=== PATIENT | male | born 1995 | race Caucasian/White ===

== ENCOUNTER 2020-03-20 22:26 | Emergency (ER) | payer OTHER, SELFPAY ==
--- NOTE | 2020-03-20 22:30 | XR_ITS ---
WS: [id number] Right hand, 3 views, 03/20/2020 Clinical Data: crush injury Comparison: None. Findings: No fractures or dislocations are seen. The soft tissues are unremarkable. The joint space s are normal XR/XR hand RT min 3V* [id number] Impression: Negative right hand.
[2020-03-20 22:40] VITALS: BP 139/83; PULSE 99; RESP 18; TEMP 36.8; O2SAT 97; BMI 20.1
--- NOTE | 2020-03-20 23:07 | W.ED.UPPEXIN ---
HPI - Extremity Injury (Upper) General: Chief Complaint: Extremity Injury, Upper Stated Complaint: Smashed hand Time Seen by Provider: 03/20/20 22:29 Source: patient Mode of arrival: ambulatory Limitations: no limitations History of Present Illness: HPI narrative: Patient is a 24-year-old male who presents to ED today for an evaluation of a right hand injury. Patient tells me earlier at work he got the hand caught between a door and cement wall. Patient states he tried to contact his employer but they did not answer so states at this time this is not a workers comp injury. Patient has no other complaints currently. complaint: injury to: hand Onset (ago): hour(s) Other injuries: none Place: work Severity: mild Relieving factors: immobilization Exacerbating factors: movement of extremity Context: crush Associated symptoms: Reports no associated symptoms Review of Systems Musc: Reports: extremity pain (R hand) and extremity swelling (R hand) Skin/Breast: Reports: other (no abrasions/lacerations) Neuro: Denies: numbness in extremities or sensory changes [facility] ED PFSH: Social History (Updated 07/19/19 @ 11:49 by Erendira Brown LPN) Smoking and tobacco status: former smoker Physical Exam Const: COMMON NORMALS: no acute distress, average body habitus, patient oriented x3, no limitations, healthy appearing, alert and well nourished Extremity: GENERAL: Yes normal exam except as noted OTHER: TTP R thenar eminence and proximal dorusm of hand; still maintains ROM of all digits and wrist; no abrasions/lacerations; no tenderness to scaphoid; NV intact Neuro: COMMON NORMALS: patient oriented x3, moves all extremities, no focal motor deficits and no sensory deficits noted SENSORIUM/ORIENTATION: Yes alert Skin: COMMON NORMALS: no rashes or lesions noted GENERAL SKIN EXAM: no rashes or lesions noted Course Vital Signs: Vital signs: Vital Signs Temperature 98.3 F 03/20/20 22:40 Pulse Rate 99 03/20/20 22:40 Respiratory Rate 18 03/20/20 22:40 Blood Pressure 139/83 03/20/20 22:40 Pulse Oximetry 97 03/20/20 22:40 MDM - Extremity Injury (Upper) Imaging Data^: XR R hand: My impression: NAD Discharge Plan Discharge Patient Disposition: Home Clinical Impression: Contusion of hand, right Qualifiers: Encounter type: initial encounter Qualified Code(s): S60.221A - Contusion of right hand, initial encounter Condition: Stable Prescriptions: No Action Toujeo Max U-300 SoloStar 300 unit/mL (3 mL) insulin pen 60 unit SUBCUT DAILY RF: 0 insulin aspart U-100 [Novolog Flexpen U-100 Insulin] 100 unit/mL (3 mL) insulin pen See Rx Instructions SUBCUT TID RF: 0 Discharge Orders: Discharge ED (Routine); Ordered 03/20/20 Ordered By: Vivi Lewis Referrals: Hector Ryan MD [Primary Care Provider] - Activity Restrictions/Additional Instructions: Please follow up with primary care in one week for continued or worsening pain. Coding Level of Care Code ED Campground Manager for Mehdi Nelson
[2020-03-20 23:22] VITALS: RESP 16
== END 2020-03-20 23:23 | disposition home or self-care (01) ==
PROVIDERS: Emergency Provider Physician Assistant; PCP Family Medicine
DX: S60.221A Contusion of right hand, initial encounter (principal); Z79.4 Long term (current) use of insulin; Z87.891 Personal history of nicotine dependence; W23.0XXA Caught, crushed, jammed, or pinched between moving objects, initial encounter; Y99.0 Civilian activity done for income or pay
CPT/HCPCS: 12345; 73130; 99281; 99282

== ENCOUNTER 2020-04-28 15:51 | Observation (INO) | payer OTHER, SELFPAY ==
[2020-04-28 16:07] VITALS: BP 128/71; PULSE 106; RESP 16; TEMP 36.9; O2SAT 100; BMI 20.5
--- NOTE | 2020-04-28 16:44 | XR_ITS ---
WS: [id number] XR chest 1V portable [id number] REASON FOR EXAM: reduced breath sounds FINDINGS: The chest is unchanged compared to 02/02/2017. The heart and mediastinum are within normal limits. Calcified granulomatous changes are present in both hemithoraces. No active pulmonary parenchymal or pleural disease is noted. Bony thorax is intact. XR/XR chest 1V portable [id number] IMPRESSION: No acute chest abnormality.
[2020-04-28 17:33] LABS: ABG PCO2 30.5 mmHg (35-45); Arterial Blood Gas Hematocrit 50.8 % (42-52); Base Excess ABG -15.6 mmol/L (-2.0-2.0); Blood Gas Allen Test Pos; Blood Gas Operator Identificat GD; Blood Gas Sample Site Radial, left; Blood Gas Sample Type Arterial; Carboxyhemoglobin 0.8 %THgb (0.4-20.1); HCO3 ABG 11.4 mmol/L (22-26); HGB O2 Sat 96.8 % (95-100); Methemoglobin 0.5 % (0.4-1.5); Oxygen Device ROOM AIR; Total Hemoglobin 16.6 g/dL (14-18)
[2020-04-28 17:34] LABS: ABG PH Result 7.18 (7.35-7.45)
[2020-04-28] MEDS: insulin regular-human 100 units/1 mL 10 UNIT IVP (17:43)
[2020-04-28] MEDS: sodium chloride 0.9% 1,000 ML 999 ML IV ×2 (17:43→19:20)
[2020-04-28 17:48] LABS: Glucose Point of Care 469 mg/dL (70-110)
[2020-04-28 17:57] LABS: Basophils # 0.1 10^3/uL (0.0-0.1); Basophils % 0.5 %; Eosinophils % 0.1 %; Hematocrit 48.4 % (42.0-52.0); Hemoglobin 16.5 g/dL (11.7-16.6); Lymphocytes # 2.5 10^3/uL (0.8-4.8); Mean Corpuscular HGB Conc 34.1 g/dL (30.0-36.0); Mean Corpuscular Hemoglobin 29.6 pg (28.0-34.0); Mean Corpuscular Volume 86.9 fL (80-94); Mean Platelet Volume 10.4 fL (7.4-10.4); Monocytes # 1.1 10^3/uL (0.2-0.9); Monocytes % 7.5 %; Neutrophils # 10.32 10^3/uL (1.8-7.7); Neutrophils % 73.1 %; Nucleated Red Blood Cells % 0 %; Platelet Count 298 10^3/cmm (130-400); Red Blood Count 5.57 10^6/uL (4.1-5.3); Red Cell Distribution Width 11.6 % (12.1-15.1); White Blood Count 14.1 10^3/uL (4.0-10.0)
[2020-04-28 18:07] LABS: Ketone (Acetest) Serum Negative (Negative)
[2020-04-28 18:16] LABS: Alanine Aminotransferase 22 U/L (0-41); Albumin Level 4.9 g/dL (3.5-5.2); Alkaline Phosphatase 124 IU/L (40-130); Anion Gap 26.4 (5-19); Aspartate Amino Transferase 12 U/L (0-40); Blood Urea Nitrogen 19 mg/dL (6-20); Calcium 8.8 mg/dL (8.5-10.5); Carbon Dioxide 13 mmol/L (22-29); Chloride 92 mmol/L (98-107); Globulin 3.4 g/dL (1.3-4.6); Glomerular Filtration Rate 90.3 mL/min (90-130); Glucose 474 mg/dL (65-115); Lipase 11 U/L (13-60); Osmolality Calculated 285 mOsm/kg (285-295); Potassium 5.4 mmol/L (3.5-5.1); Sodium 126 mmol/L (136-145); Total Bilirubin 0.4 mg/dL (0.15-1.2); Total Protein 8.3 g/dL (6.6-8.7)
[2020-04-28 18:53] VITALS: BP 117/73; PULSE 96; RESP 14; O2SAT 100
[2020-04-28 19:00] VITALS: BP 123/73; PULSE 89; RESP 26; O2SAT 99
[2020-04-28 19:01] LABS: Glucose Point of Care 316 mg/dL (70-110)
[2020-04-28 19:03] LABS: Lactate (Lactic Acid level) 1.2 mmol/L (0.5-2.2)
[2020-04-28] MEDS: insulin regular-human 100 units/1 mL 5 UNIT IVP (19:21)
--- NOTE | 2020-04-28 19:42 | P.HP_ITS ---
Providers/Chief Complaint Admitting Physician: Dr Esquivel Primary Care Provider: none reported Chief Complaint: DKA History of Present Illness Kojo Thomas is a 24 year old male who presented to the emergency room not feeling well. He had not taken his insulin for 3 days. He did take the last of his Toujeo today. Despite this his blood sugars remained elevated and he felt fairly certain that he was in DKA. He has a history of type 1 diabetes mellitus diagnosed back in 2010. For several years from approximately 5006-8029 he had recurrent episodes of DKA. The last episode was back in 2017. 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 Denied specific financial difficulty getting his insulin, instead just reported that he has been lazy and not getting it done. Denies any specific symptoms other than general malaise. In the emergency room ABG showed 7.18/103/11. Blood sugar was initially around 470. He received some insulin and IV fluids. Most recent blood sugar is at 316. Anion gap was 26. He had other laboratory abnormalities consistent with DKA. He is being placed in observation status currently. Review of Systems Const: Reports: malaise; Denies: fever(s) Eyes: Denies: change in vision ENMT: Denies: throat pain, mouth pain, ear or mastoid pain or nasal congestion Card: Denies: chest pain, palpitations or edema Resp: Denies: dyspnea, productive cough or non-productive cough GI: Denies: abdominal pain, nausea, vomiting, diarrhea or constipation : Denies: difficulty urinating Musc: Denies: extremity pain Skin/Breast: Denies: rash, pruritus or sores Neuro: Reports: other (no neurological complaints) Psych: Denies: anxiety or depression Medications/Allergies Home Medications Medication Instructions Recorded Confirmed Last Taken Type insulin glargine U-300 conc 300 70 unit SUBCUT DAILY 07/19/19 04/28/20 04/28/20 History unit/mL (3 mL) subcutaneous pen insulin lispro [Humalog KwikPen See Rx Instructions .ROUTE .COMPLEX 04/28/20 04/28/20 Unknown History Insulin] Allergies Allergy/AdvReac Type Severity Reaction Status Date / Time No Known Allergies Allergy Verified 07/19/19 11:34 PFSH Acute PFSH: Medical History (Updated 04/28/20 @ 20:32 by Kelly Esquivel MD) History of pericarditis (~2016) occurred after appendectomy Type I diabetes mellitus (~2010) 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 Mildly depressed EF at 50% with mild inferior wall hypokinesis. History of tonsillectomy Family History (Updated 04/28/20 @ 20:10 by Kelly Esquivel MD) Other Diabetes Social History (Updated 04/28/20 @ 20:11 by Kelly Esquivel MD) Smoking and tobacco status: current some day smoker cigarettes [ Other cigarette details: occasional use ] Alcohol intake: current Alcohol intake frequency: holidays/special occasions only Substance/Drug Use: never Current occupational status: employed Vitals/I&O/Wt Last Vital Signs Temp 98.4 F 04/28/20 16:07 Pulse 89 04/28/20 19:00 Resp 26 H 04/28/20 19:00 BP 123/73 04/28/20 19:00 Pulse Ox 99 04/28/20 19:00 04/28/20 04/28/20 04/28/20 06:59 14:59 22:59 Intake Total 1000 / 1000 Balance 1000 / 1000 Weight last 48 hrs Weight 72.575 kg Physical Exam Const: OTHER: Alert, oriented x3, cooperative HENMT: OTHER: Normocephalic atraumatic, moist mucus membranes, fair to poor dentition, no obvious abscess noted, nasopharynx is clear Eye: OTHER: Pupils equally round and reactive to light, extraocular movements intact Neck/C-Spine: OTHER: Supple, no thyromegaly or lymphadenopathy Resp: OTHER: Clear to auscultation bilaterally, no rales, rhonchi or wheezes noted, no accessory muscle use noted, mild tachypnea Cardio: OTHER: Regular rate and rhythm, no murmurs gallops or rubs. Pulses equal throughout GI: OTHER: Abdomen soft, nontender, nondistended with positive bowel sounds : OTHER: Deferred Extremity: NARRATIVE EXTREMITY EXAM: No cyanosis, clubbing or edema, no acute synovitis Neuro: OTHER: Face symmetric, speech clear, moves all extremities Psych: OTHER: Normal affect Skin: OTHER: Skin without any lesions or rashes noted, earlobes with evidence of prior small gauge or piercing Data : 04/28/20 17:43 04/28/20 17:43 Other Labs: Laboratory Results WBC 14.1 10^3/uL (4.0-10.0) H 04/28/20 17:43 RBC 5.57 10^6/uL (4.1-5.3) H 04/28/20 17:43 Hgb 16.5 g/dL (11.7-16.6) 04/28/20 17:43 Hct 48.4 % (42.0-52.0) 04/28/20 17:43 MCV 86.9 fL (80-94) 04/28/20 17:43 MCH 29.6 pg (28.0-34.0) 04/28/20 17:43 MCHC 34.1 g/dL (30.0-36.0) 04/28/20 17:43 RDW 11.6 % (12.1-15.1) L 04/28/20 17:43 Plt Count 298 10^3/cmm (130-400) 04/28/20 17:43 MPV 10.4 fL (7.4-10.4) 04/28/20 17:43 Neut % (Auto) 73.1 % 04/28/20 17:43 Lymph % (Auto) 18.0 % 04/28/20 17:43 [place] % (Auto) 7.5 % 04/28/20 17:43 Eos % (Auto) 0.1 % 04/28/20 17:43 Baso % (Auto) 0.5 % 04/28/20 17:43 Neut # (Auto) 10.32 10^3/uL (1.8-7.7) H 04/28/20 17:43 Lymph # (Auto) 2.5 10^3/uL (0.8-4.8) 04/28/20 17:43 [place] # (Auto) 1.1 10^3/uL (0.2-0.9) H 04/28/20 17:43 Eos # (Auto) 0.0 10^3/uL (0.0-0.8) 04/28/20 17:43 Baso # (Auto) 0.1 10^3/uL (0.0-0.1) 04/28/20 17:43 Nucleated RBC % (auto) 0 % 04/28/20 17:43 Nucleated RBCs # 0.0 /100WBC 04/28/20 17:43 Specimen Type Arterial 04/28/20 17:18 Sample Site Radial, left 04/28/20 17:18 ABG pH 7.18 (7.35-7.45) L* 04/28/20 17:18 ABG pCO2 30.5 mmHg (35-45) L 04/28/20 17:18 ABG pO2 103.0 mmHg (80.0-100.0) H 04/28/20 17:18 ABG HCO3 11.4 mmol/L (22-26) L 04/28/20 17:18 ABG Base Excess -15.6 mmol/L (-2.0-2.0) L 04/28/20 17:18 Gino Test Pos 04/28/20 17:18 Hematocrit 50.8 % (42-52) 04/28/20 17:18 Hgb O2 Saturation 96.8 % (95-100) 04/28/20 17:18 Carboxyhemoglobin 0.8 %THgb (0.4-20.1) 04/28/20 17:18 Methemoglobin 0.5 % (0.4-1.5) 04/28/20 17:18 Total Hemoglobin 16.6 g/dL (14-18) 04/28/20 17:18 O2 Delivery Device Room air 04/28/20 17:18 Patient Educator ID [id number] 04/28/20 17:18 Sodium 126 mmol/L (136-145) L 04/28/20 17:43 Potassium 5.4 mmol/L (3.5-5.1) H 04/28/20 17:43 Chloride 92 mmol/L (98-107) L 04/28/20 17:43 Carbon Dioxide 13 mmol/L (22-29) L 04/28/20 17:43 Anion Gap 26.4 (5-19) H 04/28/20 17:43 BUN 19 mg/dL (6-20) 04/28/20 17:43 Creatinine 1.0 mg/dL (0.7-1.2) 04/28/20 17:43 GFR Calculation 90.3 mL/min (90-130) 04/28/20 17:43 Glucose 474 mg/dL (65-115) H 04/28/20 17:43 POC Glucose 316 mg/dL (70-110) H 04/28/20 18:56 Calculated Osmolality 285 mOsm/kg (285-295) 04/28/20 17:43 Lactate 1.2 mmol/L (0.5-2.2) 04/28/20 17:43 Calcium 8.8 mg/dL (8.5-10.5) 04/28/20 17:43 Total Bilirubin 0.4 mg/dL (0.15-1.2) 04/28/20 17:43 AST 12 U/L (0-40) 04/28/20 17:43 ALT 22 U/L (0-41) 04/28/20 17:43 Alkaline Phosphatase 124 IU/L (40-130) 04/28/20 17:43 Total Protein 8.3 g/dL (6.6-8.7) 04/28/20 17:43 Albumin 4.9 g/dL (3.5-5.2) 04/28/20 17:43 Globulin 3.4 g/dL (1.3-4.6) 04/28/20 17:43 Lipase 11 U/L (13-60) L 04/28/20 17:43 Serum Ketones Negative (Negative) 04/28/20 17:43 CXR: I personally reviewed and interpreted this imaging study as follows: My impression: normal cardiac silhouette, no infiltrates, scattered granulomatous changes and peribronchial cuffing similar to prior study from 2017 A&P Assessment and plan (1) DKA (diabetic ketoacidoses): Due, apparently, to noncompliance with insulin regimen as reported by him. No other symptoms besides malaise presently. He has associated leukocytosis, pseudohyponatremia, hyperkalemia, and clinical evidence of dehydration. With the insulin that he has taken at home he has already had clearing of serum ketones. Lactate is normal, LFTs are normal, lipase is normal. I do not see evidence of other reasons to have anion gap acidosis currently. Status: Acute Qualifiers: Diabetes mellitus type: type 1 Diabetes mellitus complication detail: without coma Qualified Code(s): E10.10 - Type 1 diabetes mellitus with ketoacidosis without coma (2) Type I diabetes mellitus: Normally on Toujeo and sliding scale insulin Status: Chronic Qualifiers: Diabetes mellitus complication status: without complication Qualified Code(s): E10.9 - Type 1 diabetes mellitus without complications Additional A&P Information Observation admission Insulin therapy He normally takes his Toujeo around 11 AM at home. Currently plan on giving it to him in the morning earlier than this to get blood sugars under control. IV fluids Electrolyte replacement as indicated Check EKG Follow-up pending urine Monitor for any mental status or other changes suggestive of an alternative reason for anion gap metabolic acidosis Check A1c and lipid panel in morning given that he does not have a primary care provider to routinely follow with Recheck electrolytes in the morning and address accordingly Recheck CBC to ensure resolution of leukocytosis Recommended that he make arrangements to follow regularly with a primary care provider. I did let him know that if he utilizes one at our facility where he could have access to [address] pricing for his insulin at the [facility] pharmacy. He currently fills prescriptions at [facility] and denies financial difficulties. Supportive care otherwise Plans discussed with patient and he was given an opportunity to ask questions Full code Anticipate discharge home when blood sugar stabilized Attestations Medical Necessity Statement*: Currently anticipated stay less than 2 midnights in a gentleman with known type 1 diabetes mellitus presenting with evidence of DKA. He admitted noncompliance with his insulin therapy for 3 days. Sugars have improved quickly and with insulin he administered at home has already had clearing of serum ketones. Coding Level of Care Code Acute Manager Of Selection And Assessment for Mehdi Nelson Diagnoses DKA (diabetic ketoacidoses) E10.10 Diabetes mellitus type: type 1 Diabetes mellitus complication detail: without coma Type I diabetes mellitus E10.9 Diabetes mellitus complication status: without complication
[2020-04-28 19:45] VITALS: BP 122/70; PULSE 84; RESP 13; O2SAT 100
[2020-04-28] MEDS: insulin glargine 100 units/1 mL 10 UNIT SUBCUT (20:30)
[2020-04-28 20:34] LABS: Glucose Point of Care 276 mg/dL (70-110)
[2020-04-28 20:42] VITALS: BP 111/71; PULSE 86; RESP 13; TEMP 36.9; O2SAT 100
--- NOTE | 2020-04-28 20:54 | ED_ITS ---
HPI - General Adult General: Chief complaint: General Medical Stated complaint: PT STATES DKA Time Seen by Provider: 04/28/20 16:47 History of Present Illness: HPI narrative: The patient is a 24-year-old male diabetic who comes for likely DKA. His sugar was over 200 and he took no short acting insulin today. says she can smell his breath and it smells sweet. He is a noncompliant diabetic and noted ketones in his urine today at home. He admits increased thirst and urination. Associated symptoms: Deny chest pain, confusion, dyspnea, headache(s), rash or palpitations Review of Systems General: Reports: 10 or more systems reviewed and unremarkable except in HPI and below Const: Denies: fatigue Eyes: Denies: change in vision, blurry vision or eye redness ENMT: Denies: throat pain, swelling of lips/tongue, ear or mastoid pain or nasal congestion Card: Denies: chest pain, palpitations, irregular heart rhythm, edema, dyspnea on exertion or orthopnea Resp: Denies: dyspnea, productive cough or non-productive cough GI: Denies: abdominal pain, diarrhea or GI cramping : Denies: flank pain, urinary frequency or urinary urgency Musc: Denies: neck pain, back pain, extremity pain, joint pain, joint redness, limited range of motion or muscle weakness Skin/Breast: Denies: rash, pruritus, erythema, skin pain or skin tenderness Neuro: Denies: headache(s), numbness in extremities, weakness in extremities, sensory changes, difficulty walking, dizziness, confusion or Slurred speech present Psych: Denies: anxiety or depression Endo: Denies: polyuria All/Imm: Denies: urticaria, throat swelling or tongue swelling PFSH ED PFSH: Medical History (Updated 04/28/20 @ 20:56 by Jf Pelaez MD) History of pericarditis (~2016) occurred after appendectomy Type I diabetes mellitus (~2010) 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 Mildly depressed EF at 50% with mild inferior wall hypokinesis. History of tonsillectomy Family History (Updated 04/28/20 @ 20:10 by Kelly Esquivel MD) Other Diabetes Social History (Updated 04/28/20 @ 20:11 by Kelly Esquivel MD) Smoking and tobacco status: current some day smoker cigarettes [ Other cigarette details: occasional use ] Alcohol intake: current Alcohol intake frequency: holidays/special occasions only Substance/Drug Use: never Current occupational status: employed Physical Exam Const: COMMON NORMALS: no acute distress, average body habitus, patient oriented x3, no limitations, healthy appearing, alert and well nourished GENERAL APPEARANCE: cooperative, comfortable, well kempt and well developed ORIENTATION/CONSCIOUSNESS: Yes awake, Yes oriented to person, Yes oriented to place and Yes oriented to time HENMT: COMMON NORMALS: normocephalic, external ears normal and Normal external nose present HEAD & SCALP: normal to inspection and normocephalic NOSE: Normal external nose present EXTERNAL EAR: Yes external ears normal MOUTH: Normal oral and palatal mucosa present THROAT: posterior oropharynx normal Eye: COMMON NORMALS: Equal, round and reactive pupils present and EOMs intact bilaterally GENERAL EYE: appearance normal, both eyes and all related structures PUPIL: Yes Equal, round and reactive pupils present Neck/C-Spine: COMMON NORMALS: full ROM, no lymphadenopathy, no meningeal signs and no JVD GENERAL: Yes normal visual inspection Lymph: LYMPHATIC: no lymphadenopathy noted Chest: COMMONS NORMALS: normal inspection of the chest and normal palpation of entire chest wall Resp: COMMON NORMALS: normal respiratory effort, No retractions, No use of accessory muscles, clear to auscultation bilaterally and percussion normal EFFORT & INSPECTION: Yes able to speak in complete sentences AUSCULTATION: clear to auscultation bilaterally PERCUSSION: percussion normal Cardio: COMMON NORMALS: no JVD, regular rate, regular rhythm, S1 normal heart sound present, S2 normal heart sound present and Peripheral pulses 2+ throughout RATE: regular rate RHYTHM: regular rhythm HEART SOUNDS: S1 normal heart sound present and S2 normal heart sound present PERIPHERAL PULSES: Peripheral pulses 2+ throughout GI: COMMON NORMALS: Normal to inspection, nondistended, normoactive bowel sounds present, Soft to palpation, non-tender and no masses INSPECTION: Yes normal to inspection PALPATION: Yes Soft to palpation : COMMON NORMALS: Yes no CVA tenderness BLADDER/KIDNEY EXAM: Yes no CVA tenderness Back/Pelvis: COMMON NORMALS: no CVA tenderness, thoracic and lumbar spine normal to inspection, no thoracic nor lumbar tenderness and thoraco-lumbar ROM normal Extremity: COMMON NORMALS: normal to inspection, full ROM, capillary refill normal, no joint enlargement and no pedal edema GENERAL: Yes normal exam except as noted Neuro: COMMON NORMALS: patient oriented x3, CN's II-XII intact bilaterally, moves all extremities, no focal motor deficits, no sensory deficits noted and gait normal SENSORIUM/ORIENTATION: Yes alert, Yes oriented to person, Yes oriented to place and Yes oriented to time MENINGEAL SIGNS: Yes no meningeal signs Psych: COMMON NORMALS: mental status grossly normal, Normal thought process present, cooperative, normal affect and speech normal APPEARANCE: Yes well kempt ATTITUDE: Yes calm SPEECH: Yes normal speech THOUGHT PROCESS: Normal thought process present Skin: COMMON NORMALS: no rashes or lesions noted GENERAL SKIN EXAM: no rashes or lesions noted Course Vital Signs: Vital signs: Vital Signs Temperature 98.4 F 04/28/20 20:42 Pulse Rate 86 04/28/20 20:42 Respiratory Rate 13 04/28/20 20:42 Blood Pressure 111/71 04/28/20 20:42 Pulse Oximetry 100 04/28/20 20:42 MDM - General Adult MDM Narrative: Medical decision making narrative: Patient's pH was 7.18 and serum ketones were negative though he did have ketones in his urine at home. Likely DKA. Increased anion gap. He was given IV insulin and fluids and admitted. Dr. Esquivel accepts him to the floor. His glucose got down to 300 prior to his admission. Lab Data: Labs: Lab Results 04/28/20 04/28/20 04/28/20 Range/Units 17:18 17:29 17:43 WBC 14.1 H (4.0-10.0) 10^3/ uL RBC 5.57 H (4.1-5.3) 10^6/u L Hgb 16.5 (11.7-16.6) g/dL Hct 48.4 (42.0-52.0) % MCV 86.9 (80-94) fL MCH 29.6 (28.0-34.0) pg MCHC 34.1 (30.0-36.0) g/dL RDW 11.6 L (12.1-15.1) % Plt Count 298 (130-400) 10^3/c mm MPV 10.4 (7.4-10.4) fL Neut % (Auto) 73.1 % Lymph % (Auto) 18.0 % [place] % (Auto) 7.5 % Eos % (Auto) 0.1 % Baso % (Auto) 0.5 % Neut # (Auto) 10.32 H (1.8-7.7) 10^3/u L Lymph # (Auto) 2.5 (0.8-4.8) 10^3/u L [place] # (Auto) 1.1 H (0.2-0.9) 10^3/u L Eos # (Auto) 0.0 (0.0-0.8) 10^3/u L Baso # (Auto) 0.1 (0.0-0.1) 10^3/u L Nucleated RBC % (a uto) 0 % Nucleated RBCs # 0.0 /100WBC Specimen Type Arterial Sample Site Radial, left ABG pH 7.18 L* (7.35-7.45) ABG pCO2 30.5 L (35-45) mmHg ABG pO2 103.0 H (80.0-100.0) mmH g ABG HCO3 11.4 L (22-26) mmol/L ABG Base Excess -15.6 L (-2.0-2.0) mmol/ L Gino Test Pos Hematocrit 50.8 (42-52) % Hgb O2 Saturation 96.8 (95-100) % Carboxyhemoglobin 0.8 (0.4-20.1) %THgb Methemoglobin 0.5 (0.4-1.5) % Total Hemoglobin 16.6 (14-18) g/dL O2 Delivery Device Room air Certified Ophthalmic Surgical Assistant ID Gd Sodium (136-145) mmol/L Potassium (3.5-5.1) mmol/L Chloride (98-107) mmol/L Carbon Dioxide (22-29) mmol/L Anion Gap (5-19) BUN (6-20) mg/dL Creatinine (0.7-1.2) mg/dL GFR Calculation (90-130) mL/min Glucose (65-115) mg/dL POC Glucose 469 H (70-110) mg/dL Calculated Osmolal ity (285-295) mOsm/k g Lactate (0.5-2.2) mmol/L Calcium (8.5-10.5) mg/dL Total Bilirubin (0.15-1.2) mg/dL AST (0-40) U/L ALT (0-41) U/L Alkaline Phosphata se (40-130) IU/L Total Protein (6.6-8.7) g/dL Albumin (3.5-5.2) g/dL Globulin (1.3-4.6) g/dL Lipase (13-60) U/L Serum Ketones (Negative) 04/28/20 04/28/20 04/28/20 Range/Units 17:43 17:43 17:43 WBC (4.0-10.0) 10^3/ uL RBC (4.1-5.3) 10^6/u L Hgb (11.7-16.6) g/dL Hct (42.0-52.0) % MCV (80-94) fL MCH (28.0-34.0) pg MCHC (30.0-36.0) g/dL RDW (12.1-15.1) % Plt Count (130-400) 10^3/c mm MPV (7.4-10.4) fL Neut % (Auto) % Lymph % (Auto) % [place] % (Auto) % Eos % (Auto) % Baso % (Auto) % Neut # (Auto) (1.8-7.7) 10^3/u L Lymph # (Auto) (0.8-4.8) 10^3/u L [place] # (Auto) (0.2-0.9) 10^3/u L Eos # (Auto) (0.0-0.8) 10^3/u L Baso # (Auto) (0.0-0.1) 10^3/u L Nucleated RBC % (a uto) % Nucleated RBCs # /100WBC Specimen Type Sample Site ABG pH (7.35-7.45) ABG pCO2 (35-45) mmHg ABG pO2 (80.0-100.0) mmH g ABG HCO3 (22-26) mmol/L ABG Base Excess (-2.0-2.0) mmol/ L Gino Test Hematocrit (42-52) % Hgb O2 Saturation (95-100) % Carboxyhemoglobin (0.4-20.1) %THgb Methemoglobin (0.4-1.5) % Total Hemoglobin (14-18) g/dL O2 Delivery Device Certified Ophthalmic Surgical Assistant ID Sodium 126 L (136-145) mmol/L Potassium 5.4 H (3.5-5.1) mmol/L Chloride 92 L (98-107) mmol/L Carbon Dioxide 13 L (22-29) mmol/L Anion Gap 26.4 H (5-19) BUN 19 (6-20) mg/dL Creatinine 1.0 (0.7-1.2) mg/dL GFR Calculation 90.3 (90-130) mL/min Glucose 474 H (65-115) mg/dL POC Glucose (70-110) mg/dL Calculated Osmolal ity 285 (285-295) mOsm/k g Lactate 1.2 (0.5-2.2) mmol/L Calcium 8.8 (8.5-10.5) mg/dL Total Bilirubin 0.4 (0.15-1.2) mg/dL AST 12 (0-40) U/L ALT 22 (0-41) U/L Alkaline Phosphata se 124 (40-130) IU/L Total Protein 8.3 (6.6-8.7) g/dL Albumin 4.9 (3.5-5.2) g/dL Globulin 3.4 (1.3-4.6) g/dL Lipase 11 L (13-60) U/L Serum Ketones Negative (Negative) 04/28/20 Range/Units 18:56 WBC (4.0-10.0) 10^3/ uL RBC (4.1-5.3) 10^6/u L Hgb (11.7-16.6) g/dL Hct (42.0-52.0) % MCV (80-94) fL MCH (28.0-34.0) pg MCHC (30.0-36.0) g/dL RDW (12.1-15.1) % Plt Count (130-400) 10^3/c mm MPV (7.4-10.4) fL Neut % (Auto) % Lymph % (Auto) % [place] % (Auto) % Eos % (Auto) % Baso % (Auto) % Neut # (Auto) (1.8-7.7) 10^3/u L Lymph # (Auto) (0.8-4.8) 10^3/u L [place] # (Auto) (0.2-0.9) 10^3/u L Eos # (Auto) (0.0-0.8) 10^3/u L Baso # (Auto) (0.0-0.1) 10^3/u L Nucleated RBC % (a uto) % Nucleated RBCs # /100WBC Specimen Type Sample Site ABG pH (7.35-7.45) ABG pCO2 (35-45) mmHg ABG pO2 (80.0-100.0) mmH g ABG HCO3 (22-26) mmol/L ABG Base Excess (-2.0-2.0) mmol/ L Gino Test Hematocrit (42-52) % Hgb O2 Saturation (95-100) % Carboxyhemoglobin (0.4-20.1) %THgb Methemoglobin (0.4-1.5) % Total Hemoglobin (14-18) g/dL O2 Delivery Device Certified Ophthalmic Surgical Assistant ID Sodium (136-145) mmol/L Potassium (3.5-5.1) mmol/L Chloride (98-107) mmol/L Carbon Dioxide (22-29) mmol/L Anion Gap (5-19) BUN (6-20) mg/dL Creatinine (0.7-1.2) mg/dL GFR Calculation (90-130) mL/min Glucose (65-115) mg/dL POC Glucose 316 H (70-110) mg/dL Calculated Osmolal ity (285-295) mOsm/k g Lactate (0.5-2.2) mmol/L Calcium (8.5-10.5) mg/dL Total Bilirubin (0.15-1.2) mg/dL AST (0-40) U/L ALT (0-41) U/L Alkaline Phosphata se (40-130) IU/L Total Protein (6.6-8.7) g/dL Albumin (3.5-5.2) g/dL Globulin (1.3-4.6) g/dL Lipase (13-60) U/L Serum Ketones (Negative) Discharge Plan Discharge Patient Disposition: Admitted As Inpatient Admit Provider: Kelly Esquivel Clinical Impression: DKA (diabetic ketoacidoses) Condition: Stable Coding Level of Care Code ED Hydro Pneumatic Tester for Mehdi Nelson
[2020-04-28 21:12] LABS: Anion Gap 17.5 (5-19); Blood Urea Nitrogen 15 mg/dL (6-20); Calcium 7.7 mg/dL (8.5-10.5); Carbon Dioxide 15 mmol/L (22-29); Chloride 102 mmol/L (98-107); Glomerular Filtration Rate 116.9 mL/min (90-130); Glucose 311 mg/dL (65-115); Magnesium 1.9 mg/dL (1.7-2.3); Osmolality Calculated 283 mOsm/kg (285-295); Phosphorus 2.8 mg/dL (2.5-4.5); Potassium 4.5 mmol/L (3.5-5.1); Sodium 130 mmol/L (136-145)
--- NOTE | 2020-04-28 21:12 | ECG_ITS ---
[facility] ED Test Date: 2020-04-28 Pat Name: Kojo Thomas Department: Room: 277 Gender: Male Damascener: : 1995 Requested By: Kelly Esquivel Order Number: [id number] Shane MD: Rena Hill M.D. Measurements Intervals Lawn Rate: 82 P: 72 MS: 156 QRS: 83 QRSD: 94 T: 47 QT: 359 QTc: 419 Interpretive Statements SINUS RHYTHM Compared to ECG 02/02/2017 21:51:26 Sinus tachycardia no longer present T-wave abnormality no longer present Electronically Signed On 04-30-2020 7:55:39 CDT by Rena Hill M.D. [id number]
[2020-04-28 21:15] VITALS: BP 121/72; PULSE 83; RESP 18; TEMP 36.6; O2SAT 100
[2020-04-28 21:16] LABS: Glucose Point of Care 339 mg/dL (70-110)
[2020-04-28 21:23] LABS: Add Urine Microscopic? NO
[2020-04-28 21:28] LABS: Bilirubin Urine Neg (Negative); Blood Urine Neg (Negative); Glucose Urine UA 4+ (Normal); Ketones Urine 3+ (Negative); Leukocyte Esterase Urine Negative (Negative); Nitrate Urine Negative (Negative); Protein Urine Neg (Negative); Sulfosalicylic Acid Urine Negative (Negative); Urine Appearance Clear (CLEAR); Urine Color Yellow (Yellow); Urobilinogen Urine Norm (Negative); pH Urine 5 (5-7)
[2020-04-28] MEDS: enoxaparin 40 mg/0.4 mL Syringe SUBCUT (22:48)
[2020-04-28] MEDS: sodium chloride 0.9% 1,000 ML 150 ML IV (22:49)
[2020-04-29 00:36] VITALS: BP 113/61; PULSE 87; RESP 18; TEMP 36.8; O2SAT 96
[2020-04-29 04:14] LABS: Glucose Point of Care 140 mg/dL (70-110)
--- NOTE | 2020-04-29 04:14 | PC.NURSE ---
Dr. Esquivel asked this nurse to notify her if potassium level is below 4 with morning labs.
[2020-04-29 04:38] VITALS: BP 111/57; PULSE 79; RESP 18; TEMP 36.6; O2SAT 97
[2020-04-29 05:30] LABS: Basophils # 0.1 10^3/uL (0.0-0.1); Basophils % 0.7 %; Eosinophils # 0.3 10^3/uL (0.0-0.8); Hematocrit 39.7 % (42.0-52.0); Hemoglobin 13.8 g/dL (11.7-16.6); Lymphocytes # 2.9 10^3/uL (0.8-4.8); Lymphocytes % 35.6 %; Mean Corpuscular HGB Conc 34.8 g/dL (30.0-36.0); Mean Corpuscular Hemoglobin 29.6 pg (28.0-34.0); Mean Platelet Volume 9.8 fL (7.4-10.4); Monocytes # 0.8 10^3/uL (0.2-0.9); Monocytes % 9.2 %; Neutrophils % 50.9 %; Nucleated Red Blood Cells % 0 %; Platelet Count 237 10^3/cmm (130-400); Red Blood Count 4.67 10^6/uL (4.1-5.3); White Blood Count 8.3 10^3/uL (4.0-10.0)
[2020-04-29] MEDS: sodium chloride 0.9% 1,000 ML 150 ML IV (05:50)
[2020-04-29 06:12] LABS: Anion Gap 14.2 (5-19); Blood Urea Nitrogen 13 mg/dL (6-20); Calcium 8.4 mg/dL (8.5-10.5); Carbon Dioxide 20 mmol/L (22-29); Chloride 107 mmol/L (98-107); Creatinine Clr Calc Pharmacy 177.2202; Estmated Average Glucose 272; Glomerular Filtration Rate 136.3 mL/min (90-130); Glucose 123 mg/dL (65-115); Hemoglobin A1C 11.1 % (4.0-6.0); Magnesium 1.6 mg/dL (1.7-2.3); Osmolality Calculated 285 mOsm/kg (285-295); Phosphorus 2.4 mg/dL (2.5-4.5); Potassium 4.2 mmol/L (3.5-5.1); Sodium 137 mmol/L (136-145)
[2020-04-29 06:14] LABS: Cholesterol 117 mg/dL (0-200); HDL Cholesterol 45 mg/dL (60-100); LDL Cholesterol Calculated 52 mg/dL (50-129); LDL HDL Ratio 1.16 RATIO (0.00-3.22); Triglycerides 101 mg/dL (0-150)
[2020-04-29 06:21] LABS: Glucose Point of Care 95 mg/dL (70-110)
[2020-04-29 07:21] VITALS: BP 96/59; PULSE 73; RESP 18; TEMP 36.6; O2SAT 97
[2020-04-29] MEDS: insulin glargine 100 units/1 mL 60 UNIT SUBCUT (08:34)
--- NOTE | 2020-04-29 09:54 | PC.CHAP ---
Pastoral Care Encounter/Spiritual Assessment Type of Contact [] Declined urologic surgeon visit [] Patient/Family/Request visit [] Outpatient visit [] Follow-up visit [] Physician referral [] Code/Alert [x] Routine visit [] Staff referral [] Actively dying [] Patient sleeping [] Family support [] [] Out of room [] Palliative care [] [] Receiving care in room [] Pre-surgical visit [] Trauma [] Long length of stay [] ICU visit [] Other: Relational/Emotional Strength [] Patient feels connected with others/family/visitors/staff [] Distress [] Loneliness/isolation [] Abandonment Spirituality of Patient [] Person of Mayda [] Attends Yazidi of their Mayda [] Believes in Prayer [] Reads Bible or Confucianist materials [] There are Spiritual issues to be addressed Rigging Up Worker Interventions [] Prayer [] Active listening [] Non-anxious presence [] Spiritual/emotional support [] Crisis/trauma care [] Spiritual counseling [] Bereavement support [] Provided bereavement packet [] Provided Bible/devotional materials [] Provided toy/stuffed animal, coloring book to patient or family member [] Provided Communion [] Anointing/[place] [] Salvation [] Completed spiritual assessment [] Other: Impact on Illness or Injury [] Angry [] Fearful [] Anxious [] Often cries [] Exhaustion [] Unable to work [] Unable to attend orthodox [] Unable to walk/stand [] Unable to read [] Unable to drive [] Unable to eat/drink [] Unable to sleep [] Unable to be with family [] Patient intubated [] Other: Summary no payer Time spent with patient
--- NOTE | 2020-04-29 10:10 | PM.DCS ---
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 He had not taken his insulin for 3 days. He did take the last of his Toujeo today. Despite this his blood sugars remained elevated and he felt fairly certain that he was in DKA. He has a history of type 1 diabetes mellitus diagnosed back in 2010. For several years from approximately [id number] he had recurrent episodes of DKA. The last episode was back in 2016. 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 Denied specific financial difficulty getting his insulin, instead just reported that he has been lazy and not getting it done. Denies any specific symptoms other than general malaise. In the emergency room ABG showed 7.18//103/11. Blood sugar was initially around 470. He received some insulin and IV fluids. Most recent blood sugar is at 316. Anion gap was 26 Overnight DKA improved with IV insulin, he was transitioned to consistent carb diet and scheduled subcutaneous insulin dosages. Etiology of DKA was noncompliance with his insulin. Patient is denying chest pain fever abdominal pain alcohol intake on daily basis. On day of discharge white count 8.3 hemoglobin 13, anion gap 14 glucose 123, magnesium 1.6 potassium 4.2 Physical Exam Narrative: EXAM NARRATIVE: Young male was laying comfortably in his bed No active complaints No chest pain, S1, S2 No abdominal tenderness, soft no signs of peritonitis No acute respite distress no neurological deficits Pleasant mood and affect EOMI, PERRLA Discharge Data Data Completed and Pending: Completed Studies During Hospitalization Category Date Time Status XR chest 1V kevin ble [id number] Urgent Exams 04/28/20 16:44 Completed Labs from last 24 hours 04/29/20 04/29/20 04/29/20 06:09 05:01 05:01 WBC RBC Hgb Hct MCV MCH MCHC RDW Plt Count MPV Neut % (Auto) Lymph % (Auto) [place] % (Auto) Eos % (Auto) Baso % (Auto) Neut # (Auto) Lymph # (Auto) [place] # (Auto) Eos # (Auto) Baso # (Auto) Nucleated RBC % (a uto) Nucleated RBCs # Specimen Type Sample Site ABG pH ABG pCO2 ABG pO2 ABG HCO3 ABG Base Excess Gino Test Hematocrit Hgb O2 Saturation Carboxyhemoglobin Methemoglobin Total Hemoglobin O2 Delivery Device Aircraft Rigging [employer] Mechanic ID Sodium Potassium Chloride Carbon Dioxide Anion Gap BUN Creatinine GFR Calculation Glucose POC Glucose 95 Estimat Average Gl ucose 272 Hemoglobin A1c 11.1 H Calculated Osmolal ity Lactate Calcium Phosphorus Magnesium Total Bilirubin AST ALT Alkaline Phosphata se Total Protein Albumin Globulin Triglycerides 101 Cholesterol 117 LDL Cholesterol, C alc 52 HDL Cholesterol 45 L LDL/HDL Ratio 1.16 Cholesterol/HDL Ra shalom 2.60 Lipase Urine Color Urine Appearance Urine pH Ur Specific Gravit y Urine Protein Urine Glucose (UA) Urine Ketones Urine Blood Urine Nitrate Urine Bilirubin Prot Sulfosalicyli c Acd Urine Urobilinogen Ur Leukocyte Asha ase Serum Ketones 04/29/20 04/29/20 04/29/20 05:01 05:01 04:09 WBC 8.3 RBC 4.67 Hgb 13.8 Hct 39.7 L MCV 85.0 MCH 29.6 MCHC 34.8 RDW 12.0 L Plt Count 237 MPV 9.8 Neut % (Auto) 50.9 Lymph % (Auto) 35.6 [place] % (Auto) 9.2 Eos % (Auto) 3.0 Baso % (Auto) 0.7 Neut # (Auto) 4.20 Lymph # (Auto) 2.9 [place] # (Auto) 0.8 Eos # (Auto) 0.3 Baso # (Auto) 0.1 Nucleated RBC % (a uto) 0 Nucleated RBCs # 0.0 Specimen Type Sample Site ABG pH ABG pCO2 ABG pO2 ABG HCO3 ABG Base Excess Gino Test Hematocrit Hgb O2 Saturation Carboxyhemoglobin Methemoglobin Total Hemoglobin O2 Delivery Device Aircraft Rigging [employer] Controls Mechanic ID Sodium 137 Potassium 4.2 Chloride 107 Carbon Dioxide 20 L Anion Gap 14.2 BUN 13 Creatinine 0.7 GFR Calculation 136.3 H Glucose 123 H POC Glucose 140 H Estimat Average Gl ucose Hemoglobin A1c Calculated Osmolal ity 285 Lactate Calcium 8.4 L Phosphorus 2.4 L Magnesium 1.6 L Total Bilirubin AST ALT Alkaline Phosphata se Total Protein Albumin Globulin Triglycerides Cholesterol LDL Cholesterol, C alc HDL Cholesterol LDL/HDL Ratio Cholesterol/HDL Ra shalom Lipase Urine Color Urine Appearance Urine pH Ur Specific Gravit y Urine Protein Urine Glucose (UA) Urine Ketones Urine Blood Urine Nitrate Urine Bilirubin Prot Sulfosalicyli c Acd Urine Urobilinogen Ur Leukocyte Asha ase Serum Ketones 04/28/20 04/28/20 04/28/20 21:17 21:11 20:43 WBC RBC Hgb Hct MCV MCH MCHC RDW Plt Count MPV Neut % (Auto) Lymph % (Auto) [place] % (Auto) Eos % (Auto) Baso % (Auto) Neut # (Auto) Lymph # (Auto) [place] # (Auto) Eos # (Auto) Baso # (Auto) Nucleated RBC % (a uto) Nucleated RBCs # Specimen Type Sample Site ABG pH ABG pCO2 ABG pO2 ABG HCO3 ABG Base Excess Gino Test Hematocrit Hgb O2 Saturation Carboxyhemoglobin Methemoglobin Total Hemoglobin O2 Delivery Device Aircraft Rig[employer] Mechanic ID Sodium 130 L Potassium 4.5 Chloride 102 Carbon Dioxide 15 L Anion Gap 17.5 BUN 15 Creatinine 0.8 GFR Calculation 116.9 Glucose 311 H POC Glucose 339 H Estimat Average Gl ucose Hemoglobin A1c Calculated Osmolal ity 283 L Lactate Calcium 7.7 L Phosphorus 2.8 Magnesium 1.9 Total Bilirubin AST ALT Alkaline Phosphata se Total Protein Albumin Globulin Triglycerides Cholesterol LDL Cholesterol, C alc HDL Cholesterol LDL/HDL Ratio Cholesterol/HDL Ra shalom Lipase Urine Color Yellow Urine Appearance Clear Urine pH 5 Ur Specific Gravit y 1.020 Urine Protein Neg Urine Glucose (UA) 4+ H Urine Ketones 3+ H Urine Blood Neg Urine Nitrate Negative Urine Bilirubin Neg Prot Sulfosalicyli c Acd Negative Urine Urobilinogen Norm Ur Leukocyte Asha ase Negative Serum Ketones 04/28/20 04/28/20 04/28/20 20:28 18:56 17:43 WBC RBC Hgb Hct MCV MCH MCHC RDW Plt Count MPV Neut % (Auto) Lymph % (Auto) [place] % (Auto) Eos % (Auto) Baso % (Auto) Neut # (Auto) Lymph # (Auto) [place] # (Auto) Eos # (Auto) Baso # (Auto) Nucleated RBC % (a uto) Nucleated RBCs # Specimen Type Sample Site ABG pH ABG pCO2 ABG pO2 ABG HCO3 ABG Base Excess Gino Test Hematocrit Hgb O2 Saturation Carboxyhemoglobin Methemoglobin Total Hemoglobin O2 Delivery Device Aircraft [employer] Mechanic ID Sodium Potassium Chloride Carbon Dioxide Anion Gap BUN Creatinine GFR Calculation Glucose POC Glucose 276 H 316 H Estimat Average Gl ucose Hemoglobin A1c Calculated Osmolal ity Lactate 1.2 Calcium Phosphorus Magnesium Total Bilirubin AST ALT Alkaline Phosphata se Total Protein Albumin Globulin Triglycerides Cholesterol LDL Cholesterol, C alc HDL Cholesterol LDL/HDL Ratio Cholesterol/HDL Ra shalom Lipase Urine Color Urine Appearance Urine pH Ur Specific Gravit y Urine Protein Urine Glucose (UA) Urine Ketones Urine Blood Urine Nitrate Urine Bilirubin Prot Sulfosalicyli c Acd Urine Urobilinogen Ur Leukocyte Asha ase Serum Ketones 04/28/20 04/28/20 04/28/20 17:43 17:43 17:43 WBC 14.1 H RBC 5.57 H Hgb 16.5 Hct 48.4 MCV 86.9 MCH 29.6 MCHC 34.1 RDW 11.6 L Plt Count 298 MPV 10.4 Neut % (Auto) 73.1 Lymph % (Auto) 18.0 [place] % (Auto) 7.5 Eos % (Auto) 0.1 Baso % (Auto) 0.5 Neut # (Auto) 10.32 H Lymph # (Auto) 2.5 [place] # (Auto) 1.1 H Eos # (Auto) 0.0 Baso # (Auto) 0.1 Nucleated RBC % (a uto) 0 Nucleated RBCs # 0.0 Specimen Type Sample Site ABG pH ABG pCO2 ABG pO2 ABG HCO3 ABG Base Excess Gino Test Hematocrit Hgb O2 Saturation Carboxyhemoglobin Methemoglobin Total Hemoglobin O2 Delivery Device Aircraft Rig[employer] Mechanic ID Sodium 126 L Potassium 5.4 H Chloride 92 L Carbon Dioxide 13 L Anion Gap 26.4 H BUN 19 Creatinine 1.0 GFR Calculation 90.3 Glucose 474 H POC Glucose Estimat Average Gl ucose Hemoglobin A1c Calculated Osmolal ity 285 Lactate Calcium 8.8 Phosphorus Magnesium Total Bilirubin 0.4 AST 12 ALT 22 Alkaline Phosphata se 124 Total Protein 8.3 Albumin 4.9 Globulin 3.4 Triglycerides Cholesterol LDL Cholesterol, C alc HDL Cholesterol LDL/HDL Ratio Cholesterol/HDL Ra shalom Lipase 11 L Urine Color Urine Appearance Urine pH Ur Specific Gravit y Urine Protein Urine Glucose (UA) Urine Ketones Urine Blood Urine Nitrate Urine Bilirubin Prot Sulfosalicyli c Acd Urine Urobilinogen Ur Leukocyte Asha ase Serum Ketones Negative 04/28/20 04/28/20 17:29 17:18 WBC RBC Hgb Hct MCV MCH MCHC RDW Plt Count MPV Neut % (Auto) Lymph % (Auto) [place] % (Auto) Eos % (Auto) Baso % (Auto) Neut # (Auto) Lymph # (Auto) [place] # (Auto) Eos # (Auto) Baso # (Auto) Nucleated RBC % (a uto) Nucleated RBCs # Specimen Type Arterial Sample Site Radial, left ABG pH 7.18 L* ABG pCO2 30.5 L ABG pO2 103.0 H ABG HCO3 11.4 L ABG Base Excess -15.6 L Gino Test Pos Hematocrit 50.8 Hgb O2 Saturation 96.8 Carboxyhemoglobin 0.8 Methemoglobin 0.5 Total Hemoglobin 16.6 O2 Delivery Device Room air Aircraft [employer] Mechanic ID Gd Sodium Potassium Chloride Carbon Dioxide Anion Gap BUN Creatinine GFR Calculation Glucose POC Glucose 469 H Estimat Average Gl ucose Hemoglobin A1c Calculated Osmolal ity Lactate Calcium Phosphorus Magnesium Total Bilirubin AST ALT Alkaline Phosphata se Total Protein Albumin Globulin Triglycerides Cholesterol LDL Cholesterol, C alc HDL Cholesterol LDL/HDL Ratio Cholesterol/HDL Ra shalom Lipase Urine Color Urine Appearance Urine pH Ur Specific Gravit y Urine Protein Urine Glucose (UA) Urine Ketones Urine Blood Urine Nitrate Urine Bilirubin Prot Sulfosalicyli c Acd Urine Urobilinogen Ur Leukocyte Asha ase Serum Ketones Vitals: Last Vital Signs Temp 97.8 F 04/29/20 07:21 Pulse 73 04/29/20 07:21 Resp 18 04/29/20 07:21 BP 96/59 04/29/20 07:21 Pulse Ox 97 04/29/20 07:21 Discharge Plan Discharge Patient Disposition: Home Condition: Stable Prescriptions: New Phosphorous 250 mg tablet 1 tab PO DAILY Qty: 4 RF: 0 magnesium 250 mg tablet 125 mg PO BID 2 Days Qty: 2 RF: 0 Continued Toujeo Max U-300 SoloStar 300 unit/mL (3 mL) insulin pen 70 unit SUBCUT DAILY RF: 0 insulin lispro [Humalog KwikPen Insulin] 100 unit/mL insulin pen See Rx Instructions .ROUTE .COMPLEX RF: 0 Discharge Orders: Discharge Order (Routine); Ordered 04/29/20 Ordered By: Wilberto Oliver Discharge Diet: Diabetic Discharge Activity: Increase activity as tolerated Activity Restrictions/Additional Instructions: Please take magnesium and phosphate tablets for next 2 days, they were mildly low Follow-up with 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
--- NOTE | 2020-04-29 10:41 | PC.NURSE ---
DISCHARGE INSTRUCTIONS DISCHARGE INSTRUCTIONS GIVEN TO PT - PT VERBALIZES UNDERSTANDING
[2020-04-29 10:42] VITALS: BP 96/59; PULSE 73; RESP 18; TEMP 36.6; O2SAT 97
[2020-04-29 10:57] LABS: Glucose Point of Care 213 mg/dL (70-110)
== END 2020-04-29 12:48 | disposition home or self-care (01) ==
LOC: ER 17:23 → MEDSURG 20:16
PROVIDERS: Nurse Practitioner Family; Admitting Provider Hospitalist; Emergency Provider Family Medicine; Visit Provider Internal Medicine
DX: E10.9 Type 1 diabetes mellitus without complications (principal); E10.10 Type 1 diabetes mellitus with ketoacidosis without coma; F17.210 Nicotine dependence, cigarettes, uncomplicated
CPT/HCPCS: 36415; 36416; 36600; 71045; 80048; 80053; 80061; 81003; 82009; 82805; 82962; 83036; 83605; 83690; 83735; 84100; 85025; 93005; 96361; 96372; 96374; 96376; 99285; G0378; J1650; J1815 ×2; J7030

== ENCOUNTER 2020-12-31 11:47 | Inpatient (IN) | payer OTHER, SELFPAY ==
[2020-12-31] VITALS (12 sets, daily range): BP systolic 101–117; BP diastolic 60–73; PULSE 71–99; RESP 14–18; TEMP 36.7; O2SAT 95–100; BMI 19.9
--- NOTE | 2020-12-31 12:36 | XR_ITS ---
WS: [id number] Exam: XR chest 1V portable [id number] Date/Time of Exam: 12/31/2020 12:39 PM Reason For Exam: dyspnea/cough Comparison 04/28/2020. Findings: The lungs are clear and fully expanded. Costophrenic angles are sharp. No infiltrates. Bronchovascula r relief appears normal. Cardiac silhouette is unremarkable. Bony elements are intact. XR/XR chest 1V portable [id number] IMPRESSION: Unremarkable chest radiograph.
[2020-12-31 13:01] LABS: Basophils # 0.1 10^3/uL (0.0-0.1); Basophils % 0.5 %; Eosinophils % 0.1 %; Hematocrit 44.4 % (42.0-52.0); Hemoglobin 15.9 g/dL (11.7-16.6); Lymphocytes # 1.5 10^3/uL (0.8-4.8); Lymphocytes % 13.4 %; Mean Corpuscular HGB Conc 35.8 g/dL (30.0-36.0); Mean Corpuscular Hemoglobin 30.2 pg (28.0-34.0); Mean Corpuscular Volume 84.3 fl (80-94); Mean Platelet Volume 9.7 fL (7.4-10.4); Monocytes # 0.6 10^3/uL (0.2-0.9); Monocytes % 5.7 %; Neutrophils # 9.02 10^3/uL (1.8-7.7); Neutrophils % 79.8 %; Nucleated Red Blood Cells % 0 %; Platelet Count 313 10^3/cmm (130-400); Red Blood Count 5.27 10^6/uL (4.1-5.3); Red Cell Distribution Width 11.9 % (12.1-15.1); White Blood Count 11.3 10^3/uL (4.0-10.0)
--- NOTE | 2020-12-31 13:02 | W.ED.RECABL ---
HPI - Recheck/Abnormal Lab/Rx General: Chief Complaint: Recheck/Abnormal Lab/Rx Stated Complaint: DKA Time Seen by Provider: 12/31/20 12:35 History of Present Illness: HPI narrative: 25-year-old male presents emergency room with complaint of DKA. He is not doing his insulin last several days blood sugars and renal 300 and plus range. He has noted ketones in his urine on dipstick. 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 Mildly depressed EF at 50% with mild inferior wall hypokinesis. History of tonsillectomy Family History (Updated 04/28/20 @ 20:10 by Kelly Esquivel MD) Other Diabetes Social History (Updated 04/28/20 @ 20:11 by Kelly Esquivel MD) Smoking and tobacco status: current some day smoker cigarettes [ Other cigarette details: occasional use ] Alcohol intake: current Alcohol intake frequency: holidays/special occasions only Current occupational status: employed Course Vital Signs: Vital signs: Vital Signs Temperature 98.1 F 12/31/20 11:52 Pulse Rate 92 12/31/20 12:59 Respiratory Rate 16 12/31/20 12:59 Blood Pressure 110/73 12/31/20 12:59 Pulse Oximetry 97 12/31/20 12:59 MDM - Recheck/Abnormal Lab/Rx Lab Data: Labs: Lab Results 12/31/20 12/31/20 12/31/20 11:56 12:50 12:50 WBC 11.3 10^3/uL H 10 ^3/uL (4.0-10.0) RBC 5.27 10^6/uL 10^6 /uL (4.1-5.3) Hgb 15.9 g/dL g/dL (11.7-16.6) Hct 44.4 % % (42.0-52.0) MCV 84.3 fl fl (80-94) MCH 30.2 pg pg (28.0-34.0) MCHC 35.8 g/dL g/dL (30.0-36.0) RDW 11.9 % L % (12.1-15.1) Plt Count 313 10^3/cmm 10^3 /cmm (130-400) MPV 9.7 fL fL (7.4-10.4) Neut % (Auto) 79.8 % % Lymph % (Auto) 13.4 % % [place] % (Auto) 5.7 % % Eos % (Auto) 0.1 % % Baso % (Auto) 0.5 % % Neut # (Auto) 9.02 10^3/uL H 10 ^3/uL (1.8-7.7) Lymph # (Auto) 1.5 10^3/uL 10^3/ uL (0.8-4.8) [place] # (Auto) 0.6 10^3/uL 10^3/ uL (0.2-0.9) Eos # (Auto) 0.0 10^3/uL 10^3/ uL (0.0-0.8) Baso # (Auto) 0.1 10^3/uL 10^3/ uL (0.0-0.1) Nucleated RBC % (a uto) 0 % % Nucleated RBCs # 0.0 /100WBC /100W BC Specimen Type Sample Site ABG pH ABG pCO2 ABG pO2 ABG HCO3 ABG O2 Saturation ABG Base Excess Gino Test A-a O2 Gradient Hematocrit Hgb O2 Saturation Carboxyhemoglobin Methemoglobin Total Hemoglobin Sodium Glucose Ionized Calcium O2 Delivery Device FiO2 Eating Disorder Psychologist ID Potassium 4.5 mmol/L mmol/L (3.5-5.1) BUN 13 mg/dL mg/dL (6-20) Creatinine 0.9 mg/dL mg/dL (0.7-1.2) GFR Calculation 101.2 mL/min mL/m in (90-130) POC Glucose 330 mg/dL H mg/dL (70-110) Calcium 8.6 mg/dL mg/dL (8.5-10.5) Total Bilirubin 0.4 mg/dL mg/dL (0.15-1.2) AST 9 U/L U/L (0-40) ALT 15 U/L U/L (0-41) Alkaline Phosphata se 88 IU/L IU/L (40-130) Total Protein 7.3 g/dL g/dL (6.6-8.7) Albumin 4.5 g/dL g/dL (3.5-5.2) Globulin 2.8 g/dL g/dL (1.3-4.6) Serum Ketones 12/31/20 12/31/20 12/31/20 12:50 13:03 13:04 WBC RBC Hgb Hct MCV MCH MCHC RDW Plt Count MPV Neut % (Auto) Lymph % (Auto) [place] % (Auto) Eos % (Auto) Baso % (Auto) Neut # (Auto) Lymph # (Auto) [place] # (Auto) Eos # (Auto) Baso # (Auto) Nucleated RBC % (a uto) Nucleated RBCs # Specimen Type Arterial Sample Site Radial, right ABG pH 7.25 L (7.35-7.45) ABG pCO2 31.6 mmHg L mmHg (35-45) ABG pO2 98.2 mmHg mmHg (80.0-100.0) ABG HCO3 13.7 mmol/L L mmo l/L (22-26) ABG O2 Saturation 97.9 ABG Base Excess -12.3 mmol/L L mm ol/L (-2.0-2.0) Gino Test Pos A-a O2 Gradient 1.3 mmHg L mmHg (5-10) Hematocrit 49.2 % % (42-52) Hgb O2 Saturation 96.2 % % (95-100) Carboxyhemoglobin 0.7 %THgb %THgb (0.4-20.1) Methemoglobin 1.0 % % (0.4-1.5) Total Hemoglobin 16.0 g/dL g/dL (14-18) Sodium 128.0 mmol/L L mm ol/L (131-143) Glucose 307.0 mg/dL H mg/ dL (70-115) Ionized Calcium 1.3 mmol/L mmol/L (1.1-1.4) O2 Delivery Device Room air FiO2 21.0 % % Eating Disorder Psychologist ID Amh Potassium 4.4 mmol/L mmol/L (3.5-5.0) BUN Creatinine GFR Calculation POC Glucose 278 mg/dL H mg/dL (70-110) Calcium Total Bilirubin AST ALT Alkaline Phosphata se Total Protein Albumin Globulin Serum Ketones Negative (Negative) Discharge Plan Discharge Prescriptions: No Action Tylenol Ex Str Rapid Release 500 mg Tablet 500 - 1,000 mg PO Q4H PRN (Reason: Pain) RF: 0 ibuprofen 200 mg Tablet 800 mg PO Q4H PRN (Reason: Pain) RF: 0 Humalog KwikPen Insulin 100 unit/mL insulin pen See Rx Instructions .ROUTE .COMPLEX RF: 0 Toujeo Max U-300 SoloStar 300 unit/mL (3 mL) insulin pen 70 unit SUBCUT DAILY@12 RF: 0 Coding Level of Care Code ED [facility] Operator for Mehdi Nelson
[2020-12-31 13:10] LABS: Glucose Point of Care 278 mg/dL (70-110)
[2020-12-31 13:14] LABS: ABG PCO2 31.6 mmHg (35-45); ABG PH Result 7.25 (7.35-7.45); Alveolar-Arterial Oxygen Gradi 1.3 mmHg (5-10); Arterial Blood Gas Hematocrit 49.2 % (42-52); Base Excess ABG -12.3 mmol/L (-2.0-2.0); Blood Gas Allen Test Pos; Blood Gas Operator Identificat AMH; Blood Gas Sample Site Radial, right; Blood Gas Sample Type Arterial; Carboxyhemoglobin 0.7 %THgb (0.4-20.1); HCO3 ABG 13.7 mmol/L (22-26); HGB O2 Sat 96.2 % (95-100); Ionized Calcium Level - ABG 1.3 mmol/L (1.1-1.4); Oxygen Device ROOM AIR; Oxygen Saturation ABG 97.9; PO2 ABG 98.2 mmHg (80.0-100.0); Potassium Level - ABG 4.4 mmol/L (3.5-5.0)
[2020-12-31 13:21] LABS: Glucose Point of Care 330 mg/dL (70-110)
[2020-12-31 13:28] LABS: Alanine Aminotransferase 15 U/L (0-41); Albumin Level 4.5 g/dL (3.5-5.2); Alkaline Phosphatase 88 IU/L (40-130); Anion Gap 26.5 (5-19); Aspartate Amino Transferase 9 U/L (0-40); Blood Urea Nitrogen 13 mg/dL (6-20); Calcium 8.6 mg/dL (8.5-10.5); Carbon Dioxide 14 mmol/L (22-29); Chloride 90 mmol/L (98-107); Globulin 2.8 g/dL (1.3-4.6); Glomerular Filtration Rate 101.2 mL/min (90-130); Glucose 302 mg/dL (65-115); Osmolality Calculated 273 mOsm/kg (285-295); Potassium 4.5 mmol/L (3.5-5.1); Sodium 126 mmol/L (136-145); Total Bilirubin 0.4 mg/dL (0.15-1.2); Total Protein 7.3 g/dL (6.6-8.7)
[2020-12-31 13:36] LABS: Ketone (Acetest) Serum Negative (Negative)
[2020-12-31 13:38] LABS: Add Urine Microscopic? NO; Charge for UA Resulting for Rev
--- NOTE | 2020-12-31 13:53 | W.ED.GENADLT ---
HPI - General Adult General: Chief complaint: Recheck/Abnormal Lab/Rx Stated complaint: DKA Time Seen by Provider: 12/31/20 12:35 History of Present Illness: HPI narrative: 25-year-old male presents to the emergency room with complaints of elevated blood sugar. He admits has not been using his insulin last several days and his blood sugar has been elevated. he can taste the ketones in his mouth. He is not had any vomiting or diarrhea. He has been feeling rather weak and rundown. Severity: mild Relieving factors: none Exacerbating factors: none Associated symptoms: Deny chest pain, confusion, cough, diaphoresis, decreased appetite, dyspnea, fevers/chills, headache(s), malaise, nausea, rash, palpitations, seizures, short of breath, syncope, vomiting or weakness Treatments prior to arrival: none Review of Systems Const: Denies: malaise or diaphoresis ENMT: Denies: throat pain, ear or mastoid pain, nasal discharge or nasal congestion Card: Denies: chest pain, palpitations or syncope Resp: Denies: dyspnea GI: Denies: nausea or vomiting : Denies: flank pain, dysuria, urinary frequency or urinary urgency Skin/Breast: Denies: rash Neuro: Denies: headache(s) or confusion [facility] ED PFSH: Medical History (Updated 01/05/21 @ 10:44 by Tima Freitas DO) History of pericarditis (~2016) occurred after appendectomy Type I diabetes mellitus (~2010) 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, history of recurrent DKA ~[id number] Surgical History History of appendectomy (~10/2016) History of cardiac catheterization (~12/2016) Had ST elevation with chest pain, felt to have pericarditis as cause, normal left main, LAD, LCx, RCA. Mildly depressed EF at 50% with mild inferior wall hypokinesis. History of tonsillectomy Family History Other Diabetes Social History Smoking and tobacco status: current some day smoker cigarettes [ Other cigarette details: occasional use ] Alcohol intake: current Alcohol intake frequency: holidays/special occasions only Current occupational status: employed Physical Exam Const: COMMON NORMALS: no acute distress GENERAL APPEARANCE: cooperative and comfortable ORIENTATION/CONSCIOUSNESS: Yes awake, Yes oriented to person, Yes oriented to place and Yes oriented to time HENMT: COMMON NORMALS: normocephalic, atraumatic, hearing grossly normal bilaterally, moist oral mucous membranes and oropharynx normal HEAD & SCALP: normocephalic and atraumatic Eye: COMMON NORMALS: Equal, round and reactive pupils present, EOMs intact bilaterally, conjunctivae normal and no scleral icterus CONJUNCTIVA: Yes conjunctivae normal PUPIL: Yes Equal, round and reactive pupils present Neck/C-Spine: COMMON NORMALS: full ROM, no lymphadenopathy, supple and no JVD Lymph: LYMPHATIC: no lymphadenopathy noted and no lymphedema noted Resp: COMMON NORMALS: normal respiratory effort, No retractions, No use of accessory muscles and clear to auscultation bilaterally AUSCULTATION: clear to auscultation bilaterally Cardio: COMMON NORMALS: no JVD, regular rate, regular rhythm and No murmurs present (Cardio) RATE: regular rate RHYTHM: regular rhythm GI: COMMON NORMALS: Soft to palpation and No hepatosplenomegaly present AUSCULTATION: Yes normoactive bowel sounds PALPATION: Yes Soft to palpation, No Tenderness to palpation present (GI), No Guarding due to palpation present (GI) and Yes No hepatosplenomegaly present Extremity: COMMON NORMALS: normal to inspection, capillary refill normal, no clubbing, cyanosis or edema, no calf tenderness and no pedal edema Neuro: SENSORIUM/ORIENTATION: Yes oriented to person, Yes oriented to place and Yes oriented to time Skin: COMMON NORMALS: no rashes or lesions noted GENERAL SKIN EXAM: no rashes or lesions noted Course Vital Signs: Vital signs: Vital Signs Temperature 97.9 F 01/01/21 12:14 Pulse Rate 76 01/01/21 12:14 Respiratory Rate 16 01/01/21 12:14 Blood Pressure 102/67 01/01/21 12:14 Pulse Oximetry 99 01/01/21 12:14 MDM - General Adult MDM Narrative: Medical decision making narrative: Early DKA. We will go ahead and admit the patient discussed with hospitalist orders have been written. Lab Data: Labs: Lab Results 12/31/20 12/31/20 12/31/20 11:50 11:50 11:56 WBC RBC Hgb Hct MCV MCH MCHC RDW Plt Count MPV Neut % (Auto) Lymph % (Auto) Fisher % (Auto) Eos % (Auto) Baso % (Auto) Neut # (Auto) Lymph # (Auto) Fisher # (Auto) Eos # (Auto) Baso # (Auto) Nucleated RBC % (a uto) Nucleated RBCs # Specimen Type Sample Site ABG pH ABG pCO2 ABG pO2 ABG HCO3 ABG O2 Saturation ABG Base Excess Gino Test A-a O2 Gradient Hematocrit Hgb O2 Saturation Carboxyhemoglobin Methemoglobin Total Hemoglobin Ionized Calcium O2 Delivery Device FiO2 Fast Food Server ID Sodium Cancelled Potassium Cancelled Chloride Cancelled Carbon Dioxide Cancelled Anion Gap Cancelled BUN Cancelled Creatinine Cancelled GFR Calculation Cancelled Glucose Cancelled POC Glucose 330 mg/dL H mg/dL (70-110) Estimat Average Gl ucose 269 Hemoglobin A1c 11.0 % H % (4.0-6.0) Calculated Osmolal ity Cancelled Calcium Cancelled Iron 28 ug/dL L ug/dL (59-158) TIBC 268 mcg/dl mcg/dl % Saturation 10.4 % L % (20-50) Unsat Iron Binding 240 ug/dL ug/dL (112-347) Total Bilirubin AST ALT Alkaline Phosphata se Total Protein Albumin Globulin Procalcitonin 0.07 ng/mL ng/mL (0-0.5) TSH 0.40 uIU/mL uIU/m L (0.27-4.20) Urine Color Urine Appearance Urine pH Ur Specific Gravit y Urine Protein Urine Glucose (UA) Urine Ketones Urine Blood Urine Nitrate Urine Bilirubin Urine Urobilinogen Ur Leukocyte Asha ase Serum Ketones 12/31/20 12/31/20 12/31/20 12:50 12:50 12:50 WBC 11.3 10^3/uL H 10 ^3/uL (4.0-10.0) RBC 5.27 10^6/uL 10^6 /uL (4.1-5.3) Hgb 15.9 g/dL g/dL (11.7-16.6) Hct 44.4 % % (42.0-52.0) MCV 84.3 fl fl (80-94) MCH 30.2 pg pg (28.0-34.0) MCHC 35.8 g/dL g/dL (30.0-36.0) RDW 11.9 % L % (12.1-15.1) Plt Count 313 10^3/cmm 10^3 /cmm (130-400) MPV 9.7 fL fL (7.4-10.4) Neut % (Auto) 79.8 % % Lymph % (Auto) 13.4 % % Fisher % (Auto) 5.7 % % Eos % (Auto) 0.1 % % Baso % (Auto) 0.5 % % Neut # (Auto) 9.02 10^3/uL H 10 ^3/uL (1.8-7.7) Lymph # (Auto) 1.5 10^3/uL 10^3/ uL (0.8-4.8) Fisher # (Auto) 0.6 10^3/uL 10^3/ uL (0.2-0.9) Eos # (Auto) 0.0 10^3/uL 10^3/ uL (0.0-0.8) Baso # (Auto) 0.1 10^3/uL 10^3/ uL (0.0-0.1) Nucleated RBC % (a uto) 0 % % Nucleated RBCs # 0.0 /100WBC /100W BC Specimen Type Sample Site ABG pH ABG pCO2 ABG pO2 ABG HCO3 ABG O2 Saturation ABG Base Excess Gino Test A-a O2 Gradient Hematocrit Hgb O2 Saturation Carboxyhemoglobin Methemoglobin Total Hemoglobin Ionized Calcium O2 Delivery Device FiO2 Fast Food Server ID Sodium 126 mmol/L L mmol /L (136-145) Potassium 4.5 mmol/L mmol/L (3.5-5.1) Chloride 90 mmol/L L mmol/ L (98-107) Carbon Dioxide 14 mmol/L L mmol/ L (22-29) Anion Gap 26.5 H (5-19) BUN 13 mg/dL mg/dL (6-20) Creatinine 0.9 mg/dL mg/dL (0.7-1.2) GFR Calculation 101.2 mL/min mL/m in (90-130) Glucose 302 mg/dL H mg/dL (65-115) POC Glucose Estimat Average Gl ucose Hemoglobin A1c Calculated Osmolal ity 273 mOsm/kg L mOs m/kg (285-295) Calcium 8.6 mg/dL mg/dL (8.5-10.5) Iron TIBC % Saturation Unsat Iron Binding Total Bilirubin 0.4 mg/dL mg/dL (0.15-1.2) AST 9 U/L U/L (0-40) ALT 15 U/L U/L (0-41) Alkaline Phosphata se 88 IU/L IU/L (40-130) Total Protein 7.3 g/dL g/dL (6.6-8.7) Albumin 4.5 g/dL g/dL (3.5-5.2) Globulin 2.8 g/dL g/dL (1.3-4.6) Procalcitonin TSH Urine Color Urine Appearance Urine pH Ur Specific Gravit y Urine Protein Urine Glucose (UA) Urine Ketones Urine Blood Urine Nitrate Urine Bilirubin Urine Urobilinogen Ur Leukocyte Asha ase Serum Ketones Negative (Negative) 12/31/20 12/31/20 12/31/20 13:03 13:04 13:20 WBC RBC Hgb Hct MCV MCH MCHC RDW Plt Count MPV Neut % (Auto) Lymph % (Auto) Fisher % (Auto) Eos % (Auto) Baso % (Auto) Neut # (Auto) Lymph # (Auto) Fisher # (Auto) Eos # (Auto) Baso # (Auto) Nucleated RBC % (a uto) Nucleated RBCs # Specimen Type Arterial Sample Site Radial, right ABG pH 7.25 L (7.35-7.45) ABG pCO2 31.6 mmHg L mmHg (35-45) ABG pO2 98.2 mmHg mmHg (80.0-100.0) ABG HCO3 13.7 mmol/L L mmo l/L (22-26) ABG O2 Saturation 97.9 ABG Base Excess -12.3 mmol/L L mm ol/L (-2.0-2.0) Gino Test Pos A-a O2 Gradient 1.3 mmHg L mmHg (5-10) Hematocrit 49.2 % % (42-52) Hgb O2 Saturation 96.2 % % (95-100) Carboxyhemoglobin 0.7 %THgb %THgb (0.4-20.1) Methemoglobin 1.0 % % (0.4-1.5) Total Hemoglobin 16.0 g/dL g/dL (14-18) Ionized Calcium 1.3 mmol/L mmol/L (1.1-1.4) O2 Delivery Device Room air FiO2 21.0 % % Fast Food Server ID Amh Sodium 128.0 mmol/L L mm ol/L (131-143) Potassium 4.4 mmol/L mmol/L (3.5-5.0) Chloride Carbon Dioxide Anion Gap BUN Creatinine GFR Calculation Glucose 307.0 mg/dL H mg/ dL (70-115) POC Glucose 278 mg/dL H mg/dL (70-110) Estimat Average Gl ucose Hemoglobin A1c Calculated Osmolal ity Calcium Iron TIBC % Saturation Unsat Iron Binding Total Bilirubin AST ALT Alkaline Phosphata se Total Protein Albumin Globulin Procalcitonin TSH Urine Color Straw (Yellow) Urine Appearance Clear (CLEAR) Urine pH 5 (5-7) Ur Specific Gravit y 1.020 (1.005-1.030) Urine Protein Neg (Negative) Urine Glucose (UA) 4+ H (Normal) Urine Ketones 3+ H (Negative) Urine Blood Neg (Negative) Urine Nitrate Negative (Negative) Urine Bilirubin Neg (Negative) Urine Urobilinogen Norm mg/dL mg/dL (Negative) Ur Leukocyte Asha ase Negative (Negative) Serum Ketones Discharge Plan Discharge Patient Disposition: Admitted As Inpatient Admit Provider: Chacorta Robles Clinical Impression: DKA (diabetic ketoacidosis), Type 1 diabetes mellitus Condition: Stable Discharge Orders: Discharge Order (Routine); Ordered 01/01/21 Ordered By: Chacorta Robles Discharge Diet: Diabetic Discharge Activity: Resume usual activity Coding Level of Care Code ED Arboriculturist for Chg Fwd Exam Comprehensive
[2020-12-31 13:57] LABS: Bilirubin Urine Neg (Negative); Blood Urine Neg (Negative); Glucose Urine UA 4+ (Normal); Ketones Urine 3+ (Negative); Leukocyte Esterase Urine Negative (Negative); Nitrate Urine Negative (Negative); Protein Urine Neg (Negative); Urine Appearance Clear (CLEAR); Urine Color Straw (Yellow); Urobilinogen Urine Norm (Negative); pH Urine 5 (5-7)
[2020-12-31] MEDS: sodium chloride 0.9% 1,000 ML 999 ML IV ×3 (14:00→22:10)
--- NOTE | 2020-12-31 14:40 | P.HP_ITS ---
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 He last took his insulins 1 week ago. He states he did not take his insulin as he had a lot on his mind with taking taking care of his son who also has type 1 DM. He denies any nausea, vomiting, fever, SOB, cough. Review of Systems General: Reports: 10 or more systems reviewed and unremarkable except in HPI and below Const: Denies: fever(s), chills, body aches, change in appetite, change in weight, malaise, night sweats, diaphoresis, change in sleep pattern, daytime sleepiness or snoring Eyes: Denies: change in vision, blurry vision, photophobia, eye discomfort or eye discharge ENMT: Denies: throat pain, enlarged tonsils, hoarseness, mouth pain, oral sores, dry mouth, tinnitus, nasal congestion or post nasal drip Card: Denies: chest pain, palpitations, irregular heart rhythm, edema, swelling of feet/ankles, lightheadedness, syncope, pre-syncope, dyspnea on exertion, orthopnea, leg pain with exertion or acrocyanosis Resp: Denies: dyspnea, productive cough, non-productive cough, wheezing, stridor, pain on inspiration, change in phlegm color, hemoptysis or chest congestion GI: Denies: abdominal pain, nausea, vomiting, hematemesis, coffee ground emesis, dysphagia, heartburn, diarrhea, constipation, bloating, GI cramping, change in bowel habits, pain on defecation, hematochezia or melena : Denies: flank pain, difficulty urinating, dysuria, urinary frequency, urinary urgency, urinary hesitancy, urinary dribbling, difficulty starting urination, change in urine stream, nocturia or hematuria Musc: Denies: neck pain, back pain, extremity pain, joint pain, joint swelling, joint redness, joint stiffness or limited range of motion Neuro: Denies: headache(s), numbness in extremities, weakness in extremities, sensory changes, lack of coordination, difficulty walking, frequent falls, dizziness, vertigo, confusion, Slurred speech present, difficulty communicating thoughts or seizure-like activity Psych: Denies: anxiety, depression, mood swings, panic attacks, hopelessness or irritability Endo: Denies: polyuria, polydipsia, tired all the time, cold intolerance, excessive sweating, flushing or heat intolerance Dru/Lymph: Denies: easy bruising or easy bleeding All/Imm: Denies: tongue swelling, facial swelling or acute wheezing Medications/Allergies Home Medications Medication Instructions Recorded Confirmed Last Taken Type acetaminophen [Tylenol Ex Str 500 - 1,000 mg PO Q4H PRN 12/31/20 12/31/20 Unknown History Rapid Release] ibuprofen 800 mg PO Q4H PRN 12/31/20 12/31/20 Unknown History insulin glargine U-300 conc 70 unit SUBCUT DAILY@12 12/31/20 12/31/20 12/31/20 History [Toujeo Max U-300 SoloStar] 70 UNITS insulin lispro [Humalog KwikPen See Rx Instructions .ROUTE .COMPLEX 12/31/20 12/31/20 12/31/20 09:00 History Insulin] 20 UNITS Allergies Allergy/AdvReac Type Severity Reaction Status Date / Time No Known Allergies Allergy Verified 12/31/20 13:23 PFSH Acute PFSH: Medical History (Updated 12/31/20 @ 14:41 by Chacorta Robles MD) History of pericarditis (~2016) occurred after appendectomy Type I diabetes mellitus (~2010) 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 Mildly depressed EF at 50% with mild inferior wall hypokinesis. History of tonsillectomy Family History Other Diabetes Social History Smoking and tobacco status: current some day smoker cigarettes [ Other cigarette details: occasional use ] Alcohol intake: current Alcohol intake frequency: holidays/special occasions only Current occupational status: employed Vitals/I&O/Wt Last Vital Signs Temp 98.1 F 12/31/20 11:52 Pulse 92 12/31/20 12:59 Resp 16 12/31/20 12:59 BP 110/73 12/31/20 12:59 Pulse Ox 97 12/31/20 12:59 Weight last 48 hrs Weight 70.307 kg Physical Exam Narrative: EXAM NARRATIVE: General: No acute distress, AO x3, cachectic HEENT: PERRLA, pupils bilaterally equal and reactive Chest: Normal vesicular breath sounds, no added sounds, equal good air entry bilaterally CVS: S1-S2 regular, no murmurs, no tachycardia, no gallops, no rubs Abdomen: Soft, nontender, no organomegaly, bowel sounds present Neuro: No focal deficits, no facial deformity, AO x3, power 5/5 in all limbs Data : 12/31/20 12:50 12/31/20 16:37 A&P Assessment and plan (1) DKA (diabetic ketoacidosis): Status: Acute (2) Type I diabetes mellitus: Status: Acute Qualifiers: Diabetes mellitus complication status: without complication Qualified Code(s): E10.9 - Type 1 diabetes mellitus without complications Additional A&P Information Diabetic ketoacidosis: Type I diabetic. Start insulin drip as per DKA protocol with target blood sugar between 1 50-200. Normal saline at 100 cc/h. Check BMP every 6 hours. Switch fluids from normal saline to D5 NS if blood sugars less than 200 and anion gap still elevated. Add potassium to fluid if less than 4. N.p.o. for now. Will start on carb consistent diet once anion gap closes. Check iron panel, TSH, lipid panel, A1c. Full code. Lovenox for DVT prophylaxis. Famotidine for PUD prophylaxis. Attestations Medical Necessity Statement*: Admission for more than 2 midnights for management of diabetic ketoacidosis Critical Care Time: The high probability of a clinically significant, sudden or life threatening deterioration of the patient's [endocrine] system(s) required my full and direct attention, intervention and personal management. The critical care time is as shown. 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
[2020-12-31 14:54] LABS: Glucose Point of Care 250 mg/dL (70-110)
[2020-12-31] MEDS: insulin regular-human 250 UNIT in sodium chloride 0.9% 250 ML 5.7 UNIT IV (15:22)
[2020-12-31] MEDS: famotidine 20 mg/2 mL INJ IVP (15:25)
[2020-12-31] MEDS: insulin regular-human 100 units/1 mL 10 UNIT IVP (15:27)
[2020-12-31 15:45] LABS: Procalcitonin 0.07 ng/mL (0-0.5)
[2020-12-31 15:48] LABS: Estmated Average Glucose 269
[2020-12-31 15:56] LABS: Iron 28 ug/dL (59-158); Percent Saturation 10.4 % (20-50); Total Iron Binding Capacity 268 mcg/dl; Unsaturated Iron Binding 240 ug/dL (112-347)
[2020-12-31 16:22] LABS: Glucose Point of Care 198 mg/dL (70-110)
[2020-12-31] MEDS: dextrose 5 % 500 ML 100 ML IV (16:28)
--- NOTE | 2020-12-31 16:29 | PC.NURSE ---
1612 BG 198, INSULIN NOT TITRATED PER PROTOCOL. NS CHANGED TO D5 HALF NS PER PROTOCOL FROM CODY D/T BG BELOW 200.
[2020-12-31 17:23] LABS: Glucose Point of Care 173 mg/dL (70-110)
[2020-12-31 17:35] LABS: Anion Gap 22.2 (5-19); Blood Urea Nitrogen 10 mg/dL (6-20); Calcium 8.4 mg/dL (8.5-10.5); Carbon Dioxide 16 mmol/L (22-29); Chloride 100 mmol/L (98-107); Glomerular Filtration Rate 135.3 mL/min (90-130); Glucose 187 mg/dL (65-115); Osmolality Calculated 282 mOsm/kg (285-295); Potassium 4.2 mmol/L (3.5-5.1); Sodium 134 mmol/L (136-145)
[2020-12-31] MEDS: dextrose 5%-sod chloride 0.9% 1,000 ML 100 ML IV (17:49)
[2020-12-31 18:26] LABS: Glucose Point of Care 143 mg/dL (70-110)
[2020-12-31 19:30] LABS: Glucose Point of Care 122 mg/dL (70-110)
[2020-12-31 20:55] LABS: Glucose Point of Care 82 mg/dL (70-110)
[2020-12-31 21:28] LABS: Anion Gap 16.5 (5-19); Blood Urea Nitrogen 10 mg/dL (6-20); Calcium 8.1 mg/dL (8.5-10.5); Carbon Dioxide 18 mmol/L (22-29); Chloride 105 mmol/L (98-107); Glomerular Filtration Rate 161.6 mL/min (90-130); Glucose 90 mg/dL (65-115); Osmolality Calculated 281 mOsm/kg (285-295); Potassium 3.5 mmol/L (3.5-5.1); Sodium 136 mmol/L (136-145)
[2020-12-31 22:06] LABS: Glucose Point of Care 125 mg/dL (70-110)
[2020-12-31 22:23] LABS: Alanine Aminotransferase 13 U/L (0-41); Albumin Level 4.1 g/dL (3.5-5.2); Alkaline Phosphatase 67 IU/L (40-130); Anion Gap 17.4 (5-19); Aspartate Amino Transferase 8 U/L (0-40); Blood Urea Nitrogen 9 mg/dL (6-20); Calcium 8.2 mg/dL (8.5-10.5); Carbon Dioxide 18 mmol/L (22-29); Chloride 103 mmol/L (98-107); Globulin 2.5 g/dL (1.3-4.6); Glomerular Filtration Rate 161.6 mL/min (90-130); Glucose 59 mg/dL (65-115); Osmolality Calculated 276 mOsm/kg (285-295); Potassium 3.4 mmol/L (3.5-5.1); Sodium 135 mmol/L (136-145); Total Bilirubin 0.5 mg/dL (0.15-1.2); Total Protein 6.6 g/dL (6.6-8.7)
[2020-12-31 22:52] LABS: Glucose Point of Care 171 mg/dL (70-110)
[2020-12-31] MEDS: insulin glargine 100 units/1 mL 40 UNIT SUBCUT (23:01)
[2021-01-01] VITALS: BP 103/66; PULSE 78; RESP 18; TEMP 36.7; O2SAT 96
[2021-01-01 00:08] VITALS: BMI 19.6
[2021-01-01] MEDS: sodium chloride 0.9% 1,000 ML 75 ML IV (00:23)
[2021-01-01] MEDS: famotidine 20 mg/2 mL INJ IVP (02:36)
[2021-01-01 04:00] VITALS: BP 98/60; PULSE 67; RESP 17; TEMP 36.7; O2SAT 96
[2021-01-01 06:00] VITALS: BMI 19.6
[2021-01-01 06:25] LABS: Basophils # 0.1 10^3/uL (0.0-0.1); Basophils % 0.6 %; Eosinophils # 0.2 10^3/uL (0.0-0.8); Hematocrit 40.4 % (42.0-52.0); Hemoglobin 14.1 g/dL (11.7-16.6); Lymphocytes % 25.5 %; Mean Corpuscular HGB Conc 34.9 g/dL (30.0-36.0); Mean Corpuscular Hemoglobin 30.1 pg (28.0-34.0); Mean Corpuscular Volume 86.1 fl (80-94); Mean Platelet Volume 9.7 fL (7.4-10.4); Monocytes # 0.7 10^3/uL (0.2-0.9); Monocytes % 8.8 %; Neutrophils # 4.89 10^3/uL (1.8-7.7); Neutrophils % 61.7 %; Nucleated Red Blood Cells % 0 %; Platelet Count 251 10^3/cmm (130-400); Red Blood Count 4.69 10^6/uL (4.1-5.3); Red Cell Distribution Width 12.2 % (12.1-15.1); White Blood Count 7.9 10^3/uL (4.0-10.0)
[2021-01-01 06:32] LABS: Glucose Point of Care 136 mg/dL (70-110)
[2021-01-01 06:48] LABS: Chol HDL Ratio 2.74 mg/dL (1.0-5.00); Cholesterol 159 mg/dL (0-200); HDL Cholesterol 58 mg/dL (60-100); LDL Cholesterol Calculated 84 mg/dL (50-129); Triglycerides 83 mg/dL (0-150); VLDL Cholestrol Calculation 17 mg/dL (0-30)
[2021-01-01 06:51] LABS: Alanine Aminotransferase 11 U/L (0-41); Albumin Level 3.7 g/dL (3.5-5.2); Alkaline Phosphatase 59 IU/L (40-130); Anion Gap 15.8 (5-19); Aspartate Amino Transferase 8 U/L (0-40); Blood Urea Nitrogen 11 mg/dL (6-20); Calcium 8.5 mg/dL (8.5-10.5); Carbon Dioxide 18 mmol/L (22-29); Chloride 107 mmol/L (98-107); Globulin 2.4 g/dL (1.3-4.6); Glomerular Filtration Rate 161.6 mL/min (90-130); Glucose 120 mg/dL (65-115); Magnesium 1.6 mg/dL (1.7-2.3); Osmolality Calculated 285 mOsm/kg (285-295); Phosphorus 3.1 mg/dL (2.5-4.5); Potassium 3.8 mmol/L (3.5-5.1); Sodium 137 mmol/L (136-145); Total Bilirubin 0.6 mg/dL (0.15-1.2); Total Protein 6.1 g/dL (6.6-8.7)
[2021-01-01 08:00] VITALS: BP 102/67; PULSE 76; RESP 16; TEMP 36.6; O2SAT 99
[2021-01-01] MEDS: ferrous gluconate 324 mg Tablet PO (08:36)
--- NOTE | 2021-01-01 11:02 | PM.DCS ---
Discharge Providers Date of Admission: 12/31/20 14:40 Date of Discharge: January 01, 2021 Attending Provider at Admission: Chacorta Robles MD Attending Provider at Discharge: Chacorta Robles MD Primary Care Provider: Breana Duran Diagnoses at Discharge Discharge Diagnosis (1) DKA (diabetic ketoacidosis): Status: Acute (2) Type I diabetes mellitus: Status: Acute Permanent problem details: has down filler at [facility], on [employer]je[employer] + SSI, history of recurrent DKA [phone] Qualifiers: Diabetes mellitus complication status: without complication Qualified Code(s): E10.9 - Type 1 diabetes mellitus without complications Reason for Visit Reason for Visit: DKA Hospital Course Hospital Course Kojo Thomas is a 25 year old male with PMH of Type 1DM, with last DKA 3 yrs ago, h/o pericarditis who has his down filler at [facility] presented today with lethargy and feeling tired stating that he 'thinks he has DKA'. He last took his insulins 1 week ago. He states he did not take his insulin as he had a lot on his mind with taking taking care of his son who also has type 1 DM. He denies any nausea, vomiting, fever, SOB, cough. On admission patient was in significant metabolic acidosis with high anion gap consistent with diabetic ketoacidosis. He was started on insulin drip as per DKA protocol along with IV fluids. BMP was monitored every 6 hours. Eventually his anion gap closed and he was transitioned from insulin drip to subcu insulin prior to meals. His subsequent anion gap remained normal. He has been discharged in hemodynamically stable condition with counseling to continue taking his insulin as per schedule like before. He is currently also follow-up with his down filler within next 1 week. Physical Exam Narrative: EXAM NARRATIVE: General: No acute distress, AO x3, cachectic HEENT: PERRLA, pupils bilaterally equal and reactive Chest: Normal vesicular breath sounds, no added sounds, equal good air entry bilaterally CVS: S1-S2 regular, no murmurs, no tachycardia, no gallops, no rubs Abdomen: Soft, nontender, no organomegaly, bowel sounds present Neuro: No focal deficits, no facial deformity, AO x3, power 5/5 in all limbs Discharge Data Data Completed and Pending: Completed Studies During Hospitalization Category Date Time Status XR chest 1V kevin ble [id number] Stat Exams 12/31/20 12:36 Completed Labs from last 24 hours 01/01/21 01/01/21 01/01/21 06:25 05:46 05:46 WBC RBC Hgb Hct MCV MCH MCHC RDW Plt Count MPV Neut % (Auto) Lymph % (Auto) [place] % (Auto) Eos % (Auto) Baso % (Auto) Neut # (Auto) Lymph # (Auto) [place] # (Auto) Eos # (Auto) Baso # (Auto) Nucleated RBC % (a uto) Nucleated RBCs # Specimen Type Sample Site ABG pH ABG pCO2 ABG pO2 ABG HCO3 ABG O2 Saturation ABG Base Excess Gino Test A-a O2 Gradient Hematocrit Hgb O2 Saturation Carboxyhemoglobin Methemoglobin Total Hemoglobin Ionized Calcium O2 Delivery Device FiO2 Accounting Supervisor ID Sodium 137 Potassium 3.8 Chloride 107 Carbon Dioxide 18 L Anion Gap 15.8 BUN 11 Creatinine 0.6 L GFR Calculation 161.6 H Glucose 120 H POC Glucose 136 H Estimat Average Gl ucose Hemoglobin A1c Calculated Osmolal ity 285 Calcium 8.5 Phosphorus 3.1 Magnesium 1.6 L Iron TIBC % Saturation Unsat Iron Binding Total Bilirubin 0.6 AST 8 ALT 11 Alkaline Phosphata se 59 Total Protein 6.1 L Albumin 3.7 Globulin 2.4 Triglycerides 83 Cholesterol 159 LDL Cholesterol, C alc 84 Total VLDL Cholest derrek 17 HDL Cholesterol 58 L Cholesterol/HDL Ra shalom 2.74 Procalcitonin TSH Urine Color Urine Appearance Urine pH Ur Specific Gravit y Urine Protein Urine Glucose (UA) Urine Ketones Urine Blood Urine Nitrate Urine Bilirubin Urine Urobilinogen Ur Leukocyte Asha ase Serum Ketones 01/01/21 12/31/20 12/31/20 05:46 22:49 22:02 WBC 7.9 RBC 4.69 Hgb 14.1 Hct 40.4 L MCV 86.1 MCH 30.1 MCHC 34.9 RDW 12.2 Plt Count 251 MPV 9.7 Neut % (Auto) 61.7 Lymph % (Auto) 25.5 [place] % (Auto) 8.8 Eos % (Auto) 3.0 Baso % (Auto) 0.6 Neut # (Auto) 4.89 Lymph # (Auto) 2.0 [place] # (Auto) 0.7 Eos # (Auto) 0.2 Baso # (Auto) 0.1 Nucleated RBC % (a uto) 0 Nucleated RBCs # 0.0 Specimen Type Sample Site ABG pH ABG pCO2 ABG pO2 ABG HCO3 ABG O2 Saturation ABG Base Excess Gino Test A-a O2 Gradient Hematocrit Hgb O2 Saturation Carboxyhemoglobin Methemoglobin Total Hemoglobin Ionized Calcium O2 Delivery Device FiO2 Accounting Supervisor ID Sodium Potassium Chloride Carbon Dioxide Anion Gap BUN Creatinine GFR Calculation Glucose POC Glucose 171 H 125 H Estimat Average Gl ucose Hemoglobin A1c Calculated Osmolal ity Calcium Phosphorus Magnesium Iron TIBC % Saturation Unsat Iron Binding Total Bilirubin AST ALT Alkaline Phosphata se Total Protein Albumin Globulin Triglycerides Cholesterol LDL Cholesterol, C alc Total VLDL Cholest derrek HDL Cholesterol Cholesterol/HDL Ra shalom Procalcitonin TSH Urine Color Urine Appearance Urine pH Ur Specific Gravit y Urine Protein Urine Glucose (UA) Urine Ketones Urine Blood Urine Nitrate Urine Bilirubin Urine Urobilinogen Ur Leukocyte Asha ase Serum Ketones 12/31/20 12/31/20 12/31/20 21:29 20:56 20:52 WBC RBC Hgb Hct MCV MCH MCHC RDW Plt Count MPV Neut % (Auto) Lymph % (Auto) [place] % (Auto) Eos % (Auto) Baso % (Auto) Neut # (Auto) Lymph # (Auto) [place] # (Auto) Eos # (Auto) Baso # (Auto) Nucleated RBC % (a uto) Nucleated RBCs # Specimen Type Sample Site ABG pH ABG pCO2 ABG pO2 ABG HCO3 ABG O2 Saturation ABG Base Excess Gino Test A-a O2 Gradient Hematocrit Hgb O2 Saturation Carboxyhemoglobin Methemoglobin Total Hemoglobin Ionized Calcium O2 Delivery Device FiO2 Accounting Supervisor ID Sodium 135 L 136 Potassium 3.4 L 3.5 Chloride 103 105 Carbon Dioxide 18 L 18 L Anion Gap 17.4 16.5 BUN 9 10 Creatinine 0.6 L 0.6 L GFR Calculation 161.6 H 161.6 H Glucose 59 L 90 POC Glucose 82 Estimat Average Gl ucose Hemoglobin A1c Calculated Osmolal ity 276 L 281 L Calcium 8.2 L 8.1 L Phosphorus Magnesium Iron TIBC % Saturation Unsat Iron Binding Total Bilirubin 0.5 AST 8 ALT 13 Alkaline Phosphata se 67 Total Protein 6.6 Albumin 4.1 Globulin 2.5 Triglycerides Cholesterol LDL Cholesterol, C alc Total VLDL Cholest derrek HDL Cholesterol Cholesterol/HDL Ra shalom Procalcitonin TSH Urine Color Urine Appearance Urine pH Ur Specific Gravit y Urine Protein Urine Glucose (UA) Urine Ketones Urine Blood Urine Nitrate Urine Bilirubin Urine Urobilinogen Ur Leukocyte Asha ase Serum Ketones 12/31/20 12/31/20 12/31/20 13:20 13:04 13:03 WBC RBC Hgb Hct MCV MCH MCHC RDW Plt Count MPV Neut % (Auto) Lymph % (Auto) [place] % (Auto) Eos % (Auto) Baso % (Auto) Neut # (Auto) Lymph # (Auto) [place] # (Auto) Eos # (Auto) Baso # (Auto) Nucleated RBC % (a uto) Nucleated RBCs # Specimen Type Arterial Sample Site Radial, right ABG pH 7.25 L ABG pCO2 31.6 L ABG pO2 98.2 ABG HCO3 13.7 L ABG O2 Saturation 97.9 ABG Base Excess -12.3 L Gino Test Pos A-a O2 Gradient 1.3 L Hematocrit 49.2 Hgb O2 Saturation 96.2 Carboxyhemoglobin 0.7 Methemoglobin 1.0 Total Hemoglobin 16.0 Ionized Calcium 1.3 O2 Delivery Device Room air FiO2 21.0 Accounting Supervisor ID Amh Sodium 128.0 L Potassium 4.4 Chloride Carbon Dioxide Anion Gap BUN Creatinine GFR Calculation Glucose 307.0 H POC Glucose 278 H Estimat Average Gl ucose Hemoglobin A1c Calculated Osmolal ity Calcium Phosphorus Magnesium Iron TIBC % Saturation Unsat Iron Binding Total Bilirubin AST ALT Alkaline Phosphata se Total Protein Albumin Globulin Triglycerides Cholesterol LDL Cholesterol, C alc Total VLDL Cholest derrek HDL Cholesterol Cholesterol/HDL Ra shalom Procalcitonin TSH Urine Color Straw Urine Appearance Clear Urine pH 5 Ur Specific Gravit y 1.020 Urine Protein Neg Urine Glucose (UA) 4+ H Urine Ketones 3+ H Urine Blood Neg Urine Nitrate Negative Urine Bilirubin Neg Urine Urobilinogen Norm Ur Leukocyte Asha ase Negative Serum Ketones Addt'l Data from Hospital Stay: Laboratory Results WBC 7.9 10^3/uL (4.0- 10.0) 01/01/21 05:46 RBC 4.69 10^6/uL (4.1 -5.3) 01/01/21 05:46 Hgb 14.1 g/dL (11.7-1 6.6) 01/01/21 05:46 Hct 40.4 % (42.0-52.0 ) L 01/01/21 05:46 MCV 86.1 fl (80-94) 01/01/21 05:46 MCH 30.1 pg (28.0-34. 0) 01/01/21 05:46 MCHC 34.9 g/dL (30.0-3 6.0) 01/01/21 05:46 RDW 12.2 % (12.1-15.1 ) 01/01/21 05:46 Plt Count 251 10^3/cmm (130 -400) 01/01/21 05:46 MPV 9.7 fL (7.4-10.4) 01/01/21 05:46 Neut % (Auto) 61.7 % 01/01/21 05:46 Lymph % (Auto) 25.5 % 01/01/21 05:46 [place] % (Auto) 8.8 % 01/01/21 05:46 Eos % (Auto) 3.0 % 01/01/21 05:46 Baso % (Auto) 0.6 % 01/01/21 05:46 Neut # (Auto) 4.89 10^3/uL (1.8 -7.7) 01/01/21 05:46 Lymph # (Auto) 2.0 10^3/uL (0.8- 4.8) 01/01/21 05:46 [place] # (Auto) 0.7 10^3/uL (0.2- 0.9) 01/01/21 05:46 Eos # (Auto) 0.2 10^3/uL (0.0- 0.8) 01/01/21 05:46 Baso # (Auto) 0.1 10^3/uL (0.0- 0.1) 01/01/21 05:46 Nucleated RBC % (a uto) 0 % 01/01/21 05:46 Nucleated RBCs # 0.0 /100WBC 01/01/21 05:46 Specimen Type Arterial 12/31/20 13:03 Sample Site Radial, right 12/31/20 13:03 ABG pH 7.25 (7.35-7.45) L 12/31/20 13:03 ABG pCO2 31.6 mmHg (35-45) L 12/31/20 13:03 ABG pO2 98.2 mmHg (80.0-1 00.0) 12/31/20 13:03 ABG HCO3 13.7 mmol/L (22-2 6) L 12/31/20 13:03 ABG O2 Saturation 97.9 12/31/20 13:03 ABG Base Excess -12.3 mmol/L (-2. 0-2.0) L 12/31/20 13:03 Gino Test Pos 12/31/20 13:03 A-a O2 Gradient 1.3 mmHg (5-10) L 12/31/20 13:03 Hematocrit 49.2 % (42-52) 12/31/20 13:03 Hgb O2 Saturation 96.2 % (95-100) 12/31/20 13:03 Carboxyhemoglobin 0.7 %THgb (0.4-20 .1) 12/31/20 13:03 Methemoglobin 1.0 % (0.4-1.5) 12/31/20 13:03 Total Hemoglobin 16.0 g/dL (14-18) 12/31/20 13:03 Sodium 128.0 mmol/L (131 -143) L 12/31/20 13:03 Potassium 4.4 mmol/L (3.5-5 .0) 12/31/20 13:03 Glucose 307.0 mg/dL (70-1 15) H 12/31/20 13:03 Ionized Calcium 1.3 mmol/L (1.1-1 .4) 12/31/20 13:03 O2 Delivery Device Room air 12/31/20 13:03 FiO2 21.0 % 12/31/20 13:03 Accounting Supervisor ID Amh 12/31/20 13:03 Sodium 137 mmol/L (136-1 45) 01/01/21 05:46 Potassium 3.8 mmol/L (3.5-5 .1) 01/01/21 05:46 Chloride 107 mmol/L (98-10 7) 01/01/21 05:46 Carbon Dioxide 18 mmol/L (22-29) L 01/01/21 05:46 Anion Gap 15.8 (5-19) 01/01/21 05:46 BUN 11 mg/dL (6-20) 01/01/21 05:46 Creatinine 0.6 mg/dL (0.7-1. 2) L 01/01/21 05:46 GFR Calculation 161.6 mL/min (90- 130) H 01/01/21 05:46 Glucose 120 mg/dL (65-115 ) H 01/01/21 05:46 POC Glucose 136 mg/dL (70-110 ) H 01/01/21 06:25 Estimat Average Gl ucose 269 12/31/20 11:50 Hemoglobin A1c 11.0 % (4.0-6.0) H 12/31/20 11:50 Calculated Osmolal ity 285 mOsm/kg (285- 295) 01/01/21 05:46 Calcium 8.5 mg/dL (8.5-10 .5) 01/01/21 05:46 Phosphorus 3.1 mg/dL (2.5-4. 5) 01/01/21 05:46 Magnesium 1.6 mg/dL (1.7-2. 3) L 01/01/21 05:46 Iron 28 ug/dL (59-158) L 12/31/20 11:50 TIBC 268 mcg/dl 12/31/20 11:50 % Saturation 10.4 % (20-50) L 12/31/20 11:50 Unsat Iron Binding 240 ug/dL (112-34 7) 12/31/20 11:50 Total Bilirubin 0.6 mg/dL (0.15-1 .2) 01/01/21 05:46 AST 8 U/L (0-40) 01/01/21 05:46 ALT 11 U/L (0-41) 01/01/21 05:46 Alkaline Phosphata se 59 IU/L (40-130) 01/01/21 05:46 Total Protein 6.1 g/dL (6.6-8.7 ) L 01/01/21 05:46 Albumin 3.7 g/dL (3.5-5.2 ) 01/01/21 05:46 Globulin 2.4 g/dL (1.3-4.6 ) 01/01/21 05:46 Triglycerides 83 mg/dL (0-150) 01/01/21 05:46 Cholesterol 159 mg/dL (0-200) 01/01/21 05:46 LDL Cholesterol, C alc 84 mg/dL (50-129) 01/01/21 05:46 Total VLDL Cholest derrek 17 mg/dL (0-30) 01/01/21 05:46 HDL Cholesterol 58 mg/dL (60-100) L 01/01/21 05:46 Cholesterol/HDL Ra shalom 2.74 mg/dL (1.0-5 .00) 01/01/21 05:46 Procalcitonin 0.07 ng/mL (0-0.5 ) 12/31/20 11:50 TSH 0.40 uIU/mL (0.27 -4.20) 12/31/20 11:50 Urine Color Straw (Yellow) 12/31/20 13:20 Urine Appearance Clear (CLEAR) 12/31/20 13:20 Urine pH 5 (5-7) 12/31/20 13:20 Ur Specific Gravit y 1.020 (1.005-1.0 30) 12/31/20 13:20 Urine Protein Neg (Negative) 12/31/20 13:20 Urine Glucose (UA) 4+ (Normal) H 12/31/20 13:20 Urine Ketones 3+ (Negative) H 12/31/20 13:20 Urine Blood Neg (Negative) 12/31/20 13:20 Urine Nitrate Negative (Negati ve) 12/31/20 13:20 Urine Bilirubin Neg (Negative) 12/31/20 13:20 Urine Urobilinogen Norm mg/dL (Negat [place]) 12/31/20 13:20 Ur Leukocyte Asha ase Negative (Negati ve) 12/31/20 13:20 Serum Ketones Negative (Negati ve) 12/31/20 12:50 Impressions Chest X-Ray 12/31/20 12:36 IMPRESSION: Unremarkable chest radiograph. Vitals: Last Vital Signs Temp 97.9 F 01/01/21 08:00 Pulse 76 01/01/21 08:00 Resp 16 01/01/21 08:00 BP 102/67 01/01/21 08:00 Pulse Ox 99 01/01/21 08:00 Discharge Plan Discharge Patient Disposition: Home Condition: Stable Prescriptions: New citalopram [Celexa] 20 mg tablet 20 mg PO DAILY Qty: 30 RF: 0 ferrous gluconate 324 mg (37.5 mg iron) Tablet 324 mg PO BIDWM Qty: 60 RF: 0 Continued Tylenol Ex Str Rapid Release 500 mg Tablet 500 - 1,000 mg PO Q4H PRN (Reason: Pain) RF: 0 ibuprofen 200 mg Tablet 800 mg PO Q4H PRN (Reason: Pain) RF: 0 Humalog KwikPen Insulin 100 unit/mL insulin pen See Rx Instructions .ROUTE .COMPLEX RF: 0 Toujeo Max U-300 SoloStar 300 unit/mL (3 mL) insulin pen 70 unit SUBCUT DAILY@12 RF: 0 Discharge Orders: Discharge Order (Routine); Ordered 01/01/21 Ordered By: Chacorta Robles Referrals: Breana Ballesteros [Primary Care Provider] - 2 weeks Discharge Diet: Diabetic Discharge Activity: Resume usual activity Patient Instructions: Opioid Safety Activity Restrictions/Additional Instructions: Please start taking your insulin the night before. Take Celexa 20 mg daily. Please follow-up with your primary care provider within next 2 weeks and down filler on set appointment. Discharge Attestations Time Spent in Discharge Care*: greater than 30 min Quality Metrics Clinical Quality Measures During this hospital stay, did patient experience: None Coding Level of Care Code Acute g DC note Diagnoses DKA (diabetic ketoacidosis) E11.10 Type I diabetes mellitus E10.9 Diabetes mellitus complication status: without complication
[2021-01-01 12:00] VITALS: BP 124/72; PULSE 73; RESP 16; TEMP 36.8; O2SAT 97
[2021-01-01 12:14] VITALS: BP 102/67; PULSE 76; RESP 16; TEMP 36.6; O2SAT 99
--- NOTE | 2021-01-01 12:15 | PC.NURSE ---
IV removed intact. Patient tolerated well. Patient is A&Ox3. Respirations even and non-labored on room air. Reviewed discharge instructions with patient at this time. Patient verbalized understanding of follow up appointment. Patient states, I do not need the Celexa and I am not going to take it. Patient did agree to take the iron. Patient ambulated to his private car without difficulty.
[2021-01-01 12:37] LABS: Glucose Point of Care 230 mg/dL (70-110)
== END 2021-01-01 12:00 | disposition home or self-care (01) | DRG 639 ==
LOC: ER 19:37 → ER IP 20:05 → MEDSURG 22:41
PROVIDERS: Emergency Medicine; Physician Assistant; Admitting Provider Student in an Organized Health Care Education/Training Program; Emergency Provider Family Medicine; PCP Internal Medicine Endocrinology, Diabetes & Metabolism; Visit Provider Student in an Organized Health Care Education/Training Program
DX: E10.10 Type 1 diabetes mellitus with ketoacidosis without coma (principal); T38.3X6A Underdosing of insulin and oral hypoglycemic [antidiabetic] drugs, initial encounter; F17.210 Nicotine dependence, cigarettes, uncomplicated; Z83.3 Family history of diabetes mellitus; Z79.4 Long term (current) use of insulin
CPT/HCPCS: 36415; 36416; 36600; 71045; 80048; 80051; 80053; 80061; 81003; 82009; 82330; 82805; 82962; 83036; 83540; 83550; 83735; 84100; 84145; 84443; 85025; 94664; 96365; 96366; 96372; 96375; 99285; J1815 ×2; J3490; J7030; J7050

== ENCOUNTER 2021-01-15 20:28 | Emergency (ER) | payer OTHER, SELFPAY ==
[2021-01-15 21:20] VITALS: BP 122/70; PULSE 79; RESP 20; TEMP 36.7; O2SAT 98; BMI 19.9
--- NOTE | 2021-01-15 22:15 | ED_ITS ---
Documented by User: ZENAIDA Guadarrama 01/16/21 01:14 HPI - Skin/Abscess/Foreign Bdy General: Chief complaint: Skin/Abscess/Foreign Body Stated complaint: Right facial Absessed Time Seen by Provider: 01/15/21 21:44 History of Present Illness: HPI narrative: Patient is a 25-year-old male who comes to the ED with possible abscess on right lower jaw. Patient says he noticed a bump on right lower jaw approximately a week ago. It has continued to get larger and more painful. Today he shaved his [place] and very localized right lower jaw swelling noted. It is tender to the touch and a little red. Denies any purulent drainage or known abrasion to the skin. Denies any trouble breathing or swallowing. Denies any history of any skin abscesses. Associated symptoms: Deny chills, fever(s), nausea or vomiting Review of Systems Const: Denies: fever(s), chills or fatigue Eyes: Denies: change in vision or eye discomfort ENMT: Denies: throat pain, odynophagia, nasal discharge or nasal congestion Card: Denies: chest pain, palpitations, edema, swelling of feet/ankles, dyspnea on exertion or orthopnea Resp: Denies: dyspnea, productive cough or non-productive cough GI: Denies: abdominal pain, nausea, vomiting, diarrhea, constipation or hematochezia : Denies: flank pain, difficulty urinating, dysuria or hematuria Musc: Denies: neck pain, back pain or extremity swelling Skin/Breast: Reports: new lesions (Right lower jaw localized swollen nodule.); Denies: rash Neuro: Denies: headache(s), numbness in extremities or weakness in extremities [facility] ED PFSH: Medical History History of pericarditis (~2016) occurred after appendectomy Type I diabetes mellitus (~2010) 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 Mildly depressed EF at 50% with mild inferior wall hypokinesis. History of tonsillectomy Family History Other Diabetes Social History Smoking and tobacco status: current some day smoker cigarettes [ Other cigarette details: occasional use ] Alcohol intake: current Alcohol intake frequency: holidays/special occasions only Current occupational status: employed Physical Exam Const: COMMON NORMALS: no acute distress, patient oriented x3 and alert GENERAL APPEARANCE: cooperative and comfortable HENMT: COMMON NORMALS: normocephalic HEAD & SCALP: normocephalic MOUTH: Normal oral and palatal mucosa present THROAT: posterior oropharynx normal and uvula midline OTHER: Patient's right lower mandible?palpable nodule with some erythema and warmth noted. It is tender to palpation, fluctuant and not indurated. Findings suggestive of a abscess. Eye: COMMON NORMALS: Equal, round and reactive pupils present GENERAL EYE: appearance normal, both eyes and all related structures PUPIL: Yes Equal, round and reactive pupils present Neck/C-Spine: COMMON NORMALS: supple GENERAL: Yes normal visual inspection Resp: COMMON NORMALS: normal respiratory effort, No retractions, No use of accessory muscles and clear to auscultation bilaterally AUSCULTATION: clear to auscultation bilaterally Cardio: COMMON NORMALS: regular rate, regular rhythm, S1 normal heart sound present, S2 normal heart sound present, No gallops present (Cardio), No clicks present (Cardio), No murmurs present (Cardio) and Peripheral pulses 2+ throughout RATE: regular rate RHYTHM: regular rhythm HEART SOUNDS: S1 normal heart sound present and S2 normal heart sound present PERIPHERAL PULSES: Peripheral pulses 2+ throughout GI: COMMON NORMALS: Normal to inspection, nondistended, normoactive bowel sounds present, Soft to palpation, non-tender and no masses PALPATION: Yes Soft to palpation : COMMON NORMALS: Yes no CVA tenderness BLADDER/KIDNEY EXAM: Yes no CVA tenderness Back/Pelvis: COMMON NORMALS: no CVA tenderness Extremity: COMMON NORMALS: normal to inspection Neuro: COMMON NORMALS: patient oriented x3 and moves all extremities SENSORIUM/ORIENTATION: Yes alert Skin: GENERAL SKIN EXAM: dry skin Procedures Abscess I/D Site: face (right lower mandible) Side (if applicable): right Local Anesthetic: lidocaine 1% Amount of anesthesia used (mL): 5 Technique: incised with #11 blade Amount of fluid expressed (mL): 7 (Malodorous purulent bloody fluid) Irrigation: Yes Packing used?: none Course ED course: Bedside ultrasound was performed by Dr. Esparza and Dr. Johnson and they both agreed it looks like a sebaceous cyst and a I&D would be best treatment. Vital Signs: Vital signs: Vital Signs Temperature 98.1 F 01/15/21 21:20 Pulse Rate 79 01/15/21 21:20 Respiratory Rate 20 H 01/15/21 21:20 Blood Pressure 122/70 01/15/21 21:20 Pulse Oximetry 98 01/15/21 21:20 MDM - Skin/Abscess/Foreign Bdy MDM Narrative: Medical decision making narrative: Patient had a superficial abscess on right mandible. Dr. Johnson and Dr. Esparza performed an ultrasound on abscess on right side of face and it showed that there was a superficial fluid pocket to drain. I performed an I&D after using lidocaine 1% as local and drained approximately 7 mL of bloody purulent fluid. Abscess was irrigated extensively with normal saline and then bandage was placed to cover abscess. Patient was put on a prescription for Bactrim and told to follow-up with PCP in the next 3 to 5 days for reevaluation. Return to ED precautions given. Patient understood and agree with plan. Discharge Plan Discharge Patient Disposition: Home Clinical Impression: Abscess of skin or subcutaneous tissue Qualifiers: Site of cutaneous abscess: face Qualified Code(s): L02.01 - Cutaneous abscess of face Condition: Stable Prescriptions: New Bactrim DS 800-160 mg tablet 1 tab PO BID 10 Days Qty: 20 RF: 0 No Action acetaminophen 500 mg Tablet 500 - 1,000 mg PO Q4H PRN (Reason: Pain) RF: 0 ibuprofen 200 mg Tablet 800 mg PO Q4H PRN (Reason: Pain) RF: 0 Humalog KwikPen Insulin 100 unit/mL insulin pen See Rx Instructions .ROUTE .COMPLEX RF: 0 Toujeo Max U-300 SoloStar 300 unit/mL (3 mL) insulin pen 70 unit SUBCUT DAILY@12 RF: 0 ferrous gluconate 324 mg (37.5 mg iron) Tablet 324 mg PO BIDWM Qty: 60 RF: 0 Celexa 20 mg tablet 20 mg PO DAILY Qty: 30 RF: 0 Discharge Orders: Discharge ED (Routine); Ordered 01/15/21 Ordered By: Hector Nick Referrals: Breana Ballesteros [Primary Care Provider] - Discharge Diet: Regular Discharge Activity: Resume usual activity Patient Instructions: Abscess (ED), Abscess Incision and Drainage (DC) Activity Restrictions/Additional Instructions: Follow-up with medical provider as directed in 3 to 5 days for reevaluation. Keep abscess site covered with bandage. Take medications as prescribed. Return to the ER or your medical provider if condition worsens. Please read and understand discharge instructions. Thank you for choosing [facility] for your healthcare needs today. Please realize this is an emergency room and that we are providing you with a medical screening exam and this may not be complete and all inclusive of all the testing and or work up that you may need to determine your ailment or severity of your illness. It is very important that you follow up as instructed or that you return to the Emergency Department should you have concerns or if your condition changes or worsens in any way. 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 Mildly depressed EF at 50% with mild inferior wall hypokinesis. History of tonsillectomy Family History Other Diabetes Social History Smoking and tobacco status: current some day smoker cigarettes [ Other cigarette details: occasional use ] Alcohol intake: current Alcohol intake frequency: holidays/special occasions only Current occupational status: employed Course ED course: I have reviewed this documentation by ZENAIDA Guadarrama. I personally evaluated the patient and performed bedside soft tissue ultrasound, it does appear that there is drainable fluid collection. Sebaceous cyst versus abscess. Okay for I&D. Antony Esparza MD Emergency Medicine Vital Signs: Vital signs: Vital Signs Temperature 98.1 F 01/15/21 21:20 Pulse Rate 79 01/15/21 21:20 Respiratory Rate 20 H 01/15/21 21:20 Blood Pressure 122/70 01/15/21 21:20 Pulse Oximetry 98 01/15/21 21:20 Discharge Plan Discharge Patient Disposition: Home Clinical Impression: Abscess of skin or subcutaneous tissue Qualifiers: Site of cutaneous abscess: face Qualified Code(s): L02.01 - Cutaneous abscess of face Condition: Stable Prescriptions: New Bactrim DS 800-160 mg tablet 1 tab PO BID 10 Days Qty: 20 RF: 0 No Action acetaminophen 500 mg Tablet 500 - 1,000 mg PO Q4H PRN (Reason: Pain) RF: 0 ibuprofen 200 mg Tablet 800 mg PO Q4H PRN (Reason: Pain) RF: 0 Humalog KwikPen Insulin 100 unit/mL insulin pen See Rx Instructions .ROUTE .COMPLEX RF: 0 Toujeo Max U-300 SoloStar 300 unit/mL (3 mL) insulin pen 70 unit SUBCUT DAILY@12 RF: 0 ferrous gluconate 324 mg (37.5 mg iron) Tablet 324 mg PO BIDWM Qty: 60 RF: 0 Celexa 20 mg tablet 20 mg PO DAILY Qty: 30 RF: 0 Discharge Orders: Discharge ED (Routine); Ordered 01/15/21 Ordered By: Hector Nick Referrals: Breana Ballesteros [Primary Care Provider] - Discharge Diet: Regular Discharge Activity: Resume usual activity Patient Instructions: Abscess (ED), Abscess Incision and Drainage (DC) Activity Restrictions/Additional Instructions: Follow-up with medical provider as directed in 3 to 5 days for reevaluation. Keep abscess site covered with bandage. Take medications as prescribed. Return to the ER or your medical provider if condition worsens. Please read and understand discharge instructions. Thank you for choosing [facility] for your healthcare needs today. Fred padgett realize this is an emergency room and that we are providing you with a medical screening exam and this may not be complete and all inclusive of all the testing and or work up that you may need to determine your ailment or severity of your illness. It is very important that you follow up as instructed or that you return to the Emergency Department should you have concerns or if your condition changes or worsens in any way. Coding Level of Care Code ED Pattern Hand for Mehdi Fwwilmer Exam Comprehensive
[2021-01-15] MEDS: sulfamethoxazole-trimeth DS 160-800 mg Tablet 1 TAB PO (23:31)
== END 2021-01-15 23:39 | disposition home or self-care (01) ==
PROVIDERS: Emergency Provider Physician Assistant; PCP Internal Medicine Endocrinology, Diabetes & Metabolism
DX: L02.01 Cutaneous abscess of face (principal); Z79.4 Long term (current) use of insulin; E10.9 Type 1 diabetes mellitus without complications; F17.210 Nicotine dependence, cigarettes, uncomplicated
CPT/HCPCS: 10060; 87070; 87075; 87205; 99283

== ENCOUNTER 2021-04-02 00:06 | Observation (INO) | payer OTHER, SELFPAY ==
[2021-04-02 00:10] VITALS: BP 116/75; PULSE 121; RESP 18; TEMP 36.5; O2SAT 100; BMI 20.1
--- NOTE | 2021-04-02 00:17 | ED_ITS ---
HPI - General Adult General: Chief complaint: ER Hold Stated complaint: Possible DKA Time Seen by Provider: 04/02/21 00:17 History of Present Illness: Mr. Thomas is a 25-year-old gentleman with significant past medical history of type 1 diabetes who presents emergency department due to nausea and vomiting with concern for DKA. Symptom onset was gradual today and has been worsening throughout the day. He has not been able to tolerate oral intake. He denies associated abdominal pain. He reports checking his blood sugar today and it was greater than 300 as well as positive ketones on home test strip. He has associated visual disturbance including double vision which is typical for his prior episodes of DKA. He has generalized weakness and malaise. He denies provoking specific factors or any focal source of infection. Overall the course of symptoms has been worsening. Intensity is moderate to severe. No other specific changes in health, exacerbating, relieving factors identified. Supplemental information provided by is that the patient at times misses his medication. Patient reports medication compliance. 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 Mildly depressed EF at 50% with mild inferior wall hypokinesis. History of tonsillectomy Family History Other Diabetes Social History (Updated 04/02/21 @ 01:36 by Abner Gayle MD) Smoking and tobacco status: current every day smoker cigarettes [ Other cigarette details: occasional use] and smokeless tobacco Alcohol intake: current Alcohol intake frequency: holidays/special occasions only Current occupational status: employed Physical Exam Const: COMMON NORMALS: alert GENERAL APPEARANCE: cooperative, well developed and ill appearing (Somewhat) HENMT: COMMON NORMALS: normocephalic and atraumatic HEAD & SCALP: normocephalic and atraumatic THROAT: other (Dry mucous membranes) Eye: COMMON NORMALS: conjunctivae normal CONJUNCTIVA: Yes conjunctivae normal SCLERA: sclerae normal Neck/C-Spine: COMMON NORMALS: supple GENERAL: Yes trachea midline Resp: COMMON NORMALS: normal respiratory effort and clear to auscultation bilaterally EFFORT & INSPECTION: Yes able to speak in complete sentences AUSCULTATION: clear to auscultation bilaterally Cardio: COMMON NORMALS: regular rhythm RATE: tachycardic RHYTHM: regular rhythm OTHER: Normal peripheral perfusion. GI: COMMON NORMALS: Soft to palpation PALPATION: Yes Soft to palpation and No Tenderness to palpation present (GI) Extremity: GENERAL: Yes normal exam except as noted and No edema Neuro: COMMON NORMALS: moves all extremities, no focal motor deficits and no sensory deficits noted SENSORIUM/ORIENTATION: Yes alert and No Orientation impaired Psych: COMMON NORMALS: mental status grossly normal and Normal thought process present THOUGHT PROCESS: Normal thought process present Course ED course: - Patient was seen and evaluated by me at bedside - Patient placed on cardiac monitors, IV access obtained - Initial evaluation notable for exam as above - Fluid bolus ordered - Labs notable for leukocytosis, hemoconcentration. Metabolic panel with evidence of dehydration and DKA, bicarb is decreased with elevated anion gap and elevated creatinine. Ketones are positive in serum. ABG sample actually venous however pH 7.21 consistent with DKA. - Insulin drip ordered. - Upon serial reexamination after treatment the patient was similar - Based on patient history, evaluation, labs, and imaging as interpreted the most likely cause of the patient's condition is diabetic ketoacidosis - The results of ED evaluation were discussed with the patient including plan for admission due to requirement for level of care not available if discharged to prevent significant worsening/deterioration. - Admitting service was contacted and Dr Gayle with the hospitalist service agreed to admit the patient - Patient was admitted without further deterioration or significant events. - The patient is critically ill with DKA. Note: Click bubbles or prepopulated huff in note writing are used for assistance with data collection and billing and are inherently more limited than narrative and other text portions of this note. Please use narrative for additional clinical history and defer to narrative/free test for any case of contradictory information. If information appears in only free text or click bubble it should be considered present or absent as reported. Please contact note technical proposal writer for clarifications of clinical information or contradictory information. MDM is a brief summary, contradictory or erroneous seeming information should be clarified and full note should be reviewed. Vital Signs: Vital signs: Vital Signs Temperature 97.7 F 04/02/21 00:10 Pulse Rate 121 H 04/02/21 00:10 Respiratory Rate 18 04/02/21 00:10 Blood Pressure 116/75 04/02/21 00:10 Pulse Oximetry 100 04/02/21 00:10 MDM - General Adult Medical Decision Making 25-year-old gentleman with history of type 1 diabetes and history of DKA presenting with typical symptoms of DKA for him including nausea and vomiting as well as visual disturbance which has been going on today. Denies specific provoking factors or focal infectious sources. pH 7.21 on venous blood gas, anion gap 30.2, bicarb 13. Patient placed on insulin drip after IV fluid bolus and admitted for definitive management of DKA. Medical Records I reviewed the patient's medical records. Lab Data I reviewed the patient's lab results. : 04/02/21 04:40 04/02/21 00:45 Laboratory Results WBC 19.4 10^3/uL (4.0-10.0) H 04/02/21 00:45 RBC 5.60 10^6/uL (4.1-5.3) H 04/02/21 00:45 Hgb 16.8 g/dL (11.7-16.6) H 04/02/21 00:45 Hct 49.0 % (42.0-52.0) 04/02/21 00:45 MCV 87.5 fl (80-94) 04/02/21 00:45 MCH 30.0 pg (28.0-34.0) 04/02/21 00:45 MCHC 34.3 g/dL (30.0-36.0) 04/02/21 00:45 RDW 11.9 % (12.1-15.1) L 04/02/21 00:45 Plt Count 357 10^3/cmm (130-400) 04/02/21 00:45 MPV 9.7 fL (7.4-10.4) 04/02/21 00:45 Neut % (Auto) 78.6 % 04/02/21 00:45 Lymph % (Auto) 12.1 % 04/02/21 00:45 [place] % (Auto) 7.5 % 04/02/21 00:45 Eos % (Auto) 0.0 % 04/02/21 00:45 Baso % (Auto) 0.5 % 04/02/21 00:45 Neut # (Auto) 15.27 10^3/uL (1.8-7.7) H 04/02/21 00:45 Lymph # (Auto) 2.4 10^3/uL (0.8-4.8) 04/02/21 00:45 [place] # (Auto) 1.5 10^3/uL (0.2-0.9) H 04/02/21 00:45 Eos # (Auto) 0.0 10^3/uL (0.0-0.8) 04/02/21 00:45 Baso # (Auto) 0.1 10^3/uL (0.0-0.1) 04/02/21 00:45 Nucleated RBC % (auto) 0 % 04/02/21 00:45 Nucleated RBCs # 0.0 /100WBC 04/02/21 00:45 Specimen Type Arterial 04/02/21 00:22 Sample Site Radial, left 04/02/21 00:22 ABG pH 7.21 (7.35-7.45) L 04/02/21 00:22 ABG pCO2 34.1 mmHg (35-45) L 04/02/21 00:22 ABG pO2 42.7 mmHg (80.0-100.0) L 04/02/21 00:22 ABG HCO3 13.7 mmol/L (22-26) L 04/02/21 00:22 ABG Base Excess -13.0 mmol/L (-2.0-2.0) L 04/02/21 00:22 Gino Test Pos 04/02/21 00:22 Hematocrit 51.6 % (42-52) 04/02/21 00:22 O2 Delivery Device None 04/02/21 00:22 FiO2 21.0 % 04/02/21 00:22 Sat Math Tutor ID Johna 04/02/21 00:22 Sodium 131 mmol/L (136-145) L 04/02/21 00:45 Potassium 5.2 mmol/L (3.5-5.1) H 04/02/21 00:45 Chloride 93 mmol/L (98-107) L 04/02/21 00:45 Carbon Dioxide 13 mmol/L (22-29) L 04/02/21 00:45 Anion Gap 30.2 (5-19) H 04/02/21 00:45 BUN 23 mg/dL (6-20) H 04/02/21 00:45 Creatinine 1.3 mg/dL (0.7-1.2) H 04/02/21 00:45 GFR Calculation 66.2 mL/min (90-130) L 04/02/21 00:45 Glucose 332 mg/dL (65-115) H 04/02/21 00:45 POC Glucose 336 mg/dL (70-110) H 04/02/21 00:43 Calculated Osmolality 289 mOsm/kg (285-295) 04/02/21 00:45 Lactic Acid 1.3 mmol/L (0.5-2.2) 04/02/21 01:14 Calcium 10.5 mg/dL (8.5-10.5) 04/02/21 00:45 Phosphorus 4.2 mg/dL (2.5-4.5) 04/02/21 00:45 Magnesium 2.5 mg/dL (1.7-2.3) H 04/02/21 00:45 Total Bilirubin 0.4 mg/dL (0.15-1.2) 04/02/21 00:45 AST 10 U/L (0-40) 04/02/21 00:45 ALT 25 U/L (0-41) 04/02/21 00:45 Alkaline Phosphatase 116 IU/L (40-130) 04/02/21 00:45 Total Protein 8.1 g/dL (6.6-8.7) 04/02/21 00:45 Albumin 5.3 g/dL (3.5-5.2) H 04/02/21 00:45 Globulin 2.8 g/dL (1.3-4.6) 04/02/21 00:45 Serum Ketones Positive (Negative) H 04/02/21 00:45 EKG Data EKG 1: I personally reviewed and interpreted this EKG as follows: EKG interpretation date: 04/02/21 EKG interpretation time: 01:05 Interpretation: Twelve-lead EKG shows a regular rhythm at a rate of 110. OH interval 147, QRS duration 89, QTc 430. Normal axis. Interpretation: Sinus tachycardia. Nonspecific ST segment abnormalities. Critical Care Time Critical Care Time: Critical Care Time: Yes Total Critical Care Time: 40 Attestation: Due to a high probability of clinically significant, possibly life threatening deterioration, the patient required my highest level of attention and preparedness to intervene emergently and I personally spent this critical care time directly and personally managing the patient. This critical care time included obtaining a history; examining the patient; pulse oximetry; ordering and review of laboratory and imaging studies; arranging urgent treatment with development of a management plan; evaluation of patient's response to treatment; frequent reassessment; and, discussions with other providers as applicable. It was exclusive of separately billable procedures. Primary system involved is endocrine/metabolic. Discharge Plan Discharge Patient Disposition: Admitted As Inpatient Admit Provider: Abner Gayle Clinical Impression: DKA (diabetic ketoacidosis), Type 1 diabetes mellitus Condition: Stable Coding Level of Care Code ED Police Communications Operator for Chg Fwd Exam Comprehensive
--- NOTE | 2021-04-02 00:22 | ECG_ITS ---
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 Measurements Intervals [place] Rate: 110 P: 69 NE: 147 QRS: 68 QRSD: 89 T: 49 QT: 365 QTc: 495 Interpretive Statements SINUS TACHYCARDIA POSSIBLE LEFT ATRIAL ENLARGEMENT [-0.1mV P-WAVE IN V1/V2] Compared to ECG 04/28/2020 23:26:13 Sinus rhythm no longer present Electronically Signed On 04-02-2021 20:53:35 PRODUCTION SUPERINTENDENT HYDRO by Kota Ledezma M.D. [email or web address] ([id number]
[2021-04-02 00:46] LABS: Glucose Point of Care 336 mg/dL (70-110)
--- NOTE | 2021-04-02 00:49 | PC.NURSE ---
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 reports generally feeling bad, denies cough, and fever. states unable to keep anything down.
[2021-04-02 00:50] LABS: Basophils # 0.1 10^3/uL (0.0-0.1); Basophils % 0.5 %; Hemoglobin 16.8 g/dL (11.7-16.6); Lymphocytes # 2.4 10^3/uL (0.8-4.8); Lymphocytes % 12.1 %; Mean Corpuscular HGB Conc 34.3 g/dL (30.0-36.0); Mean Corpuscular Volume 87.5 fl (80-94); Mean Platelet Volume 9.7 fL (7.4-10.4); Monocytes # 1.5 10^3/uL (0.2-0.9); Monocytes % 7.5 %; Neutrophils # 15.27 10^3/uL (1.8-7.7); Neutrophils % 78.6 %; Nucleated Red Blood Cells % 0 %; Platelet Count 357 10^3/cmm (130-400); Red Cell Distribution Width 11.9 % (12.1-15.1); White Blood Count 19.4 10^3/uL (4.0-10.0)
[2021-04-02 01:01] LABS: ABG PH Result 7.21 (7.35-7.45); Blood Gas Allen Test Pos; Blood Gas Sample Site Radial, left; Blood Gas Sample Type Arterial; HCO3 ABG 13.7 mmol/L (22-26)
[2021-04-02 01:04] LABS: PO2 ABG 42.7 mmHg (80.0-100.0)
[2021-04-02 01:06] LABS: ABG PCO2 34.1 mmHg (35-45); Arterial Blood Gas Hematocrit 51.6 % (42-52)
[2021-04-02 01:09] LABS: Alanine Aminotransferase 25 U/L (0-41); Albumin Level 5.3 g/dL (3.5-5.2); Alkaline Phosphatase 116 IU/L (40-130); Anion Gap 30.2 (5-19); Aspartate Amino Transferase 10 U/L (0-40); Blood Urea Nitrogen 23 mg/dL (6-20); Calcium 10.5 mg/dL (8.5-10.5); Carbon Dioxide 13 mmol/L (22-29); Chloride 93 mmol/L (98-107); Globulin 2.8 g/dL (1.3-4.6); Glomerular Filtration Rate 66.2 mL/min (90-130); Glucose 332 mg/dL (65-115); Magnesium 2.5 mg/dL (1.7-2.3); Osmolality Calculated 289 mOsm/kg (285-295); Phosphorus 4.2 mg/dL (2.5-4.5); Potassium 5.2 mmol/L (3.5-5.1); Sodium 131 mmol/L (136-145); Total Bilirubin 0.4 mg/dL (0.15-1.2); Total Protein 8.1 g/dL (6.6-8.7)
[2021-04-02 01:12] LABS: Ketone (Acetest) Serum Positive (Negative)
[2021-04-02] MEDS: sodium chloride 0.9% 1,000 ML 999 ML IV (01:25)
--- NOTE | 2021-04-02 01:34 | P.HP_ITS ---
Providers/Chief Complaint Admitting Physician: Abner Gayle MD, hospitalist Primary Care Provider: Breana Duran Chief Complaint: Possible DKA History of Present Illness Kojo Thomas is a 25 year old male who presents with vomiting, sugar in the 500s earlier starting earlier today. Stopped keeping liquids down this afternoon. No fever. Has had DKA several times in the past. Did not take his insulin yesterday, but certainly did today when blood sugar was high. Denies any abdominal pain, fever, recent infections. No shortness of breath or chest discomfort. Review of Systems General: Reports: 10 or more systems reviewed and unremarkable except in HPI and below Const: Denies: fever(s) Eyes: Denies: change in vision ENMT: Denies: throat pain Card: Denies: chest pain Resp: Denies: dyspnea GI: Reports: nausea and vomiting; Denies: abdominal pain : Reports: oliguria; Denies: difficulty urinating Musc: Denies: neck pain Skin/Breast: Denies: rash Neuro: Denies: headache(s) Psych: Denies: anxiety Endo: Denies: polyuria Dru/Lymph: Denies: easy bruising All/Imm: Denies: urticaria Medications/Allergies Home Medications Medication Instructions Recorded Confirmed Last Taken Type acetaminophen 500 mg tablet 500 - 1,000 mg PO Q4H PRN 12/31/20 12/31/20 Unknown History ibuprofen 200 mg tablet 800 mg PO Q4H PRN 12/31/20 12/31/20 Unknown History insulin glargine U-300 conc 300 70 unit SUBCUT DAILY@12 12/31/20 12/31/20 12/31/20 History unit/mL (3 mL) subcutaneous pen 70 UNITS (Toujeo Max U-300 SoloStar) insulin lispro 100 unit/mL See Rx Instructions .ROUTE .COMPLEX 12/31/20 12/31/20 12/31/20 09:00 History subcutaneous pen (Humalog KwikPen 20 UNITS (U-100) Insulin) amoxicillin 875 mg-potassium 1 tab PO Q12H #20 tab 02/16/21 02/16/21 Unknown Rx clavulanate 125 mg tablet (Augmentin) Allergies Allergy/AdvReac Type Severity Reaction Status Date / Time No Known Allergies Allergy Verified 02/16/21 13:20 PFSH Acute PFSH: Medical History History of pericarditis (~2016) occurred after appendectomy Type I diabetes mellitus (~2010) 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 Mildly depressed EF at 50% with mild inferior wall hypokinesis. History of tonsillectomy Family History Other Diabetes Social History (Updated 04/02/21 @ 01:36 by Abner Gayle MD) Smoking and tobacco status: current every day smoker cigarettes [ Other cigarette details: occasional use] and smokeless tobacco Alcohol intake: current Alcohol intake frequency: holidays/special occasions on ly Current occupational status: employed Vitals/I&O/Wt Last Vital Signs Temp 97.7 F 04/02/21 00:10 Pulse 121 H 04/02/21 00:10 Resp 18 04/02/21 00:10 BP 116/75 04/02/21 00:10 Pulse Ox 100 04/02/21 00:10 Weight last 48 hrs Weight 71.214 kg Physical Exam Narrative: General exam is a white male, no apparent distress HEENT: Atraumatic normocephalic. Pupils equally round. Oropharynx clear. Neck is supple no lymphadenopathy or thyromegaly Cardiovascular tachycardic, no murmur Lungs clear to auscultation bilaterally no wheezing or crackles Abdomen is soft nontender positive bowel sounds. No obvious organomegaly exam is deferred Extremities no cyanosis clubbing or edema, cap refill brisk Skin no rash Neuro no obvious focal deficits. Data : 04/02/21 00:45 04/02/21 00:45 Other Labs: Chest x-ray no infiltrate EKG sinus tachycardia, no acute changes Blood gas which was likely venous demonstrates a pH of 7.21, PCO2 of 34, PO2 of 42 LFTs normal Magnesium 2.5 Calcium 10.5 Lactic acid 1.3 Serum ketones positive Urinalysis pending Micro: Microbiology 04/02/21 01:14 Blood Culture - Preliminary Blood SPECIMEN COLLECTED 04/02/21 01:14 Blood Culture - Preliminary Blood SPECIMEN COLLECTED A&P Assessment and plan (1) DKA (diabetic ketoacidosis): Continue fluids with normal saline, 150 cc an hour Insulin drip When blood sugar reaches less than 200 initiate D5 half-normal saline. Has potassium normalizes, may need potassium added to the bag Close follow-up electrolytes in 4 hours, and conversion to long-acting insulin when anion gap closes. Check magnesium and phosphorus as well. Etiology of DKA is likely noncompliance TSH was checked in December and normal. Status: Acute (2) Type 1 diabetes mellitus: See above Status: Acute (3) Nicotine dependence, chewing tobacco, with unspecified nicotine-induced disorders: Encourage abstinence Status: Acute Plan Full code Protonix for GI prophylaxis Low risk for DVT Attestations Medical Necessity Statement*: Will need less than 2 midnight stay for evaluation and treatment of DKA Coding Level of Care Code Acute Bulb Packer for [facility] Fwd Diagnoses DKA (diabetic ketoacidosis) E11.10 Type 1 diabetes mellitus E10.9 Nicotine dependence, chewing tobacco, with unspecified nicotine-induced disorders F17.229
[2021-04-02] MEDS: insulin regular-human 250 UNIT in sodium chloride 0.9% 250 ML 8.16 UNIT IV (01:35)
[2021-04-02 01:36] LABS: Lactic Sepsis W/Reflex 1.3 mmol/L (0.5-2.2)
[2021-04-02 02:20] LABS: Glucose Point of Care 212 mg/dL (70-110)
[2021-04-02] MEDS: dextrose 5%-sod chloride 0.45% 1,000 ML 125 ML IV (02:57)
[2021-04-02 03:34] LABS: Glucose Point of Care 222 mg/dL (70-110)
[2021-04-02 04:27] LABS: Glucose Point of Care 211 mg/dL (70-110)
[2021-04-02 04:45] LABS: Basophils # 0.1 10^3/uL (0.0-0.1); Basophils % 0.3 %; Eosinophils % 0.1 %; Hematocrit 42.6 % (42.0-52.0); Hemoglobin 14.8 g/dL (11.7-16.6); Lymphocytes # 3.1 10^3/uL (0.8-4.8); Lymphocytes % 18.4 %; Mean Corpuscular HGB Conc 34.7 g/dL (30.0-36.0); Mean Corpuscular Hemoglobin 30.1 pg (28.0-34.0); Mean Corpuscular Volume 86.8 fl (80-94); Mean Platelet Volume 9.5 fL (7.4-10.4); Monocytes # 1.8 10^3/uL (0.2-0.9); Monocytes % 10.4 %; Neutrophils # 11.75 10^3/uL (1.8-7.7); Nucleated Red Blood Cells % 0 %; Platelet Count 311 10^3/cmm (130-400); Red Blood Count 4.91 10^6/uL (4.1-5.3); Red Cell Distribution Width 11.9 % (12.1-15.1); White Blood Count 16.8 10^3/uL (4.0-10.0)
[2021-04-02 05:04] LABS: Alanine Aminotransferase 20 U/L (0-41); Albumin Level 4.5 g/dL (3.5-5.2); Alkaline Phosphatase 87 IU/L (40-130); Anion Gap 18.7 (5-19); Aspartate Amino Transferase 9 U/L (0-40); Blood Urea Nitrogen 19 mg/dL (6-20); Calcium 9.2 mg/dL (8.5-10.5); Carbon Dioxide 17 mmol/L (22-29); Chloride 102 mmol/L (98-107); Globulin 2.2 g/dL (1.3-4.6); Glomerular Filtration Rate 89.6 mL/min (90-130); Glucose 228 mg/dL (65-115); Osmolality Calculated 285 mOsm/kg (285-295); Potassium 4.7 mmol/L (3.5-5.1); Sodium 133 mmol/L (136-145); Total Bilirubin 0.4 mg/dL (0.15-1.2); Total Protein 6.7 g/dL (6.6-8.7)
[2021-04-02 05:13] LABS: Magnesium 2.1 mg/dL (1.7-2.3); Phosphorus 3.1 mg/dL (2.5-4.5)
[2021-04-02 05:29] LABS: Glucose Point of Care 210 mg/dL (70-110)
[2021-04-02 06:39] LABS: Glucose Point of Care 198 mg/dL (70-110)
[2021-04-02] MEDS: pantoprazole 40 mg SDV IVP (08:15)
[2021-04-02] MEDS: insulin lispro 100 unit/1 mL SUBCUT (08:16)
--- NOTE | 2021-04-02 08:28 | PC.NURSE ---
Continuous cardiac, BP, and SpO2 monitoring initiated.
[2021-04-02] MEDS: insulin glargine 100 units/1 mL 60 UNIT SUBCUT (09:00)
[2021-04-02 10:48] LABS: Glucose Point of Care 190 mg/dL (70-110)
[2021-04-02 11:25] LABS: Anion Gap 14.2 (5-19); Blood Urea Nitrogen 18 mg/dL (6-20); Calcium 9.4 mg/dL (8.5-10.5); Carbon Dioxide 21 mmol/L (22-29); Chloride 102 mmol/L (98-107); Creatinine Clr Calc Pharmacy 152.6395; Glucose 202 mg/dL (65-115); Osmolality Calculated 284 mOsm/kg (285-295); Potassium 4.2 mmol/L (3.5-5.1); Sodium 133 mmol/L (136-145)
--- NOTE | 2021-04-02 11:50 | P.DS_ITS ---
Discharge Providers Date of Admission: 04/02/21 01:18 Date of Discharge: April 02, 2021 Attending Provider at Admission: Abner Gayle MD Attending Provider at Discharge: Wilberto Oliver MD Primary Care Provider: Breana Duran Diagnoses at Discharge Discharge Diagnosis (1) DKA (diabetic ketoacidosis): Status: Acute (2) Type 1 diabetes mellitus: Status: Acute (3) Nicotine dependence, chewing tobacco, with unspecified nicotine-induced disorders: Status: Acute Reason for Visit Reason for Visit: Possible DKA Hospital Course Hospital Course 25-year male with type 1 diabetes presented with DKA. He did not take insulin properly for last couple of days that resulted in recurrent nausea and vomiting before his arrival in the ER. His DKA resolved in the on insulin drip in the ER. At the time of my evaluation his blood sugar is under 90, and gap is closed, tolerating his diet. He does have enough supply of Toujeo at home. He follows up with marine equipment test engineer in [place]. He was discharged home on 04/02 after resolution of DKA. He does not want to set up an appointment with marine equipment test engineer locally. Physical Exam Narrative: Patient was laying supine Saturating well on room air Well-hydrated Nonfocal neuro exam Saturating well on room air No audible stridor or wheezing Discharge Data Studies Completed and Pending Pending at discharge Category Date Time Status Blood Culture Stat Lab 04/02/21 01:14 Results Urinalysis Stat Lab 04/02/21 00:22 Uncollected Laboratory Results WBC 16.8 10^3/uL (4.0-10.0) H 04/02/21 04:40 RBC 4.91 10^6/uL (4.1-5.3) 04/02/21 04:40 Hgb 14.8 g/dL (11.7-16.6) 04/02/21 04:40 Hct 42.6 % (42.0-52.0) 04/02/21 04:40 MCV 86.8 fl (80-94) 04/02/21 04:40 MCH 30.1 pg (28.0-34.0) 04/02/21 04:40 MCHC 34.7 g/dL (30.0-36.0) 04/02/21 04:40 RDW 11.9 % (12.1-15.1) L 04/02/21 04:40 Plt Count 311 10^3/cmm (130-400) 04/02/21 04:40 MPV 9.5 fL (7.4-10.4) 04/02/21 04:40 Neut % (Auto) 70.0 % 04/02/21 04:40 Lymph % (Auto) 18.4 % 04/02/21 04:40 [place] % (Auto) 10.4 % 04/02/21 04:40 Eos % (Auto) 0.1 % 04/02/21 04:40 Baso % (Auto) 0.3 % 04/02/21 04:40 Neut # (Auto) 11.75 10^3/uL (1.8-7.7) H 04/02/21 04:40 Lymph # (Auto) 3.1 10^3/uL (0.8-4.8) 04/02/21 04:40 [place] # (Auto) 1.8 10^3/uL (0.2-0.9) H 04/02/21 04:40 Eos # (Auto) 0.0 10^3/uL (0.0-0.8) 04/02/21 04:40 Baso # (Auto) 0.1 10^3/uL (0.0-0.1) 04/02/21 04:40 Nucleated RBC % (auto) 0 % 04/02/21 04:40 Nucleated RBCs # 0.0 /100WBC 04/02/21 04:40 Specimen Type Arterial 04/02/21 00:22 Sample Site Radial, left 04/02/21 00:22 ABG pH 7.21 (7.35-7.45) L 04/02/21 00:22 ABG pCO2 34.1 mmHg (35-45) L 04/02/21 00:22 ABG pO2 42.7 mmHg (80.0-100.0) L 04/02/21 00:22 ABG HCO3 13.7 mmol/L (22-26) L 04/02/21 00:22 ABG Base Excess -13.0 mmol/L (-2.0-2.0) L 04/02/21 00:22 Gino Test Pos 04/02/21 00:22 Hematocrit 51.6 % (42-52) 04/02/21 00:22 O2 Delivery Device None 04/02/21 00:22 FiO2 21.0 % 04/02/21 00:22 Wrapper Stitcher ID Renata 04/02/21 00:22 Sodium 133 mmol/L (136-145) L 04/02/21 10:44 Potassium 4.2 mmol/L (3.5-5.1) 04/02/21 10:44 Chloride 102 mmol/L (98-107) 04/02/21 10:44 Carbon Dioxide 21 mmol/L (22-29) L 04/02/21 10:44 Anion Gap 14.2 (5-19) 04/02/21 10:44 BUN 18 mg/dL (6-20) 04/02/21 10:44 Creatinine 0.8 mg/dL (0.7-1.2) 04/02/21 10:44 GFR Calculation 116.0 mL/min (90-130) 04/02/21 10:44 Glucose 202 mg/dL (65-115) H 04/02/21 10:44 POC Glucose 190 mg/dL (70-110) H 04/02/21 10:41 Calculated Osmolality 284 mOsm/kg (285-295) L 04/02/21 10:44 Lactic Acid 1.3 mmol/L (0.5-2.2) 04/02/21 01:14 Calcium 9.4 mg/dL (8.5-10.5) 04/02/21 10:44 Phosphorus 3.1 mg/dL (2.5-4.5) 04/02/21 04:40 Magnesium 2.0 mg/dL (1.7-2.3) 04/02/21 10:44 Total Bilirubin 0.4 mg/dL (0.15-1.2) 04/02/21 04:40 AST 9 U/L (0-40) 04/02/21 04:40 ALT 20 U/L (0-41) 04/02/21 04:40 Alkaline Phosphatase 87 IU/L (40-130) 04/02/21 04:40 Total Protein 6.7 g/dL (6.6-8.7) 04/02/21 04:40 Albumin 4.5 g/dL (3.5-5.2) 04/02/21 04:40 Globulin 2.2 g/dL (1.3-4.6) 04/02/21 04:40 Serum Ketones Positive (Negative) H 04/02/21 00:45 Vitals Last Vital Signs Temp 97.7 F 04/02/21 00:10 Pulse 121 H 04/02/21 00:10 Resp 18 04/02/21 00:10 BP 116/75 04/02/21 00:10 Pulse Ox 100 04/02/21 00:10 Discharge Plan Discharge Patient Disposition: Home Condition: Stable Prescriptions: Continued acetaminophen 500 mg Tablet 500 - 1,000 mg PO Q4H PRN (Reason: Pain) 0RF ibuprofen 200 mg Tablet 800 mg PO Q4H PRN (Reason: Pain) 0RF insulin lispro [Humalog KwikPen Insulin] 100 unit/mL insulin pen See Rx Instructions .ROUTE .COMPLEX 0RF Rx Instructions: 20 UNITS subcutaneously WITH MEALS PLUS SLIDING SCALE Toujeo Max U-300 SoloStar 300 unit/mL (3 mL) insulin pen 70 unit SUBCUT DAILY@12 0RF Discharge Orders: Discharge Order (Routine); Ordered 04/02/21 Ordered By: Wilberto Oliver Referrals: Breana Ballesteros [Primary Care Provider] - 1-3 days Discharge Diet: Diabetic Discharge Activity: Increase activity as tolerated Patient Instructions: Opioid Safety Discharge Attestations Time Spent in Discharge Care*: less than 30 min Quality Metrics Clinical Quality Measures [ No reported AMI, CVA or VTE this stay] Coding Level of Care Code Acute Chg FW DC note Diagnoses DKA (diabetic ketoacidosis) E11.10 Type 1 diabetes mellitus E10.9 Nicotine dependence, chewing tobacco, with unspecified nicotine-induced disorders F17.229
[2021-04-02 12:31] VITALS: BP 109/72; PULSE 86; RESP 15; O2SAT 98
[2021-04-05 00:17] LABS: Glucose Point of Care 194 mg/dL (70-110)
== END 2021-04-02 12:47 | disposition home or self-care (01) ==
LOC: ER 01:27 → ER IP 03:39
PROVIDERS: Admitting Provider Internal Medicine; Emergency Provider Emergency Medicine; PCP Internal Medicine Endocrinology, Diabetes & Metabolism; Visit Provider Internal Medicine
DX: E10.10 Type 1 diabetes mellitus with ketoacidosis without coma (principal); F17.229 Nicotine dependence, chewing tobacco, with unspecified nicotine-induced disorders
CPT/HCPCS: 36416; 36600; 80048; 80053; 82009; 82803; 82962; 83605; 83735; 84100; 85025; 87040; 93005; 96365; 96366; 96372; 96375; 99285; C9113; G0378; J1815 ×2; J7030; J7050; J7799

== ENCOUNTER 2021-10-01 06:22 | Observation (INO) | payer OTHER, SELFPAY ==
[2021-10-01] VITALS (42 sets, daily range): BP systolic 90–133; BP diastolic 47–77; PULSE 68–98; RESP 7–23; TEMP 36.4–36.8; O2SAT 94–100; BMI 19.9
[2021-10-01 06:37] LABS: Glucose Point of Care 598 mg/dL (70-110)
--- NOTE | 2021-10-01 06:40 | XRR_ITS ---
PROCEDURE INFORMATION: Exam: XR Chest Exam date and time: 10/01/2021 6:45 AM Age: 26 years old Clinical indication: Angina; Patient HX: Chest pain this am; Additional info: Dyspnea/cough TECHNIQUE: Imaging protocol: Radiologic exam of the chest. Views: 1 view. COMPARISON: CR XR chest 1V portable [id number] 12/31/2020 12:44 PM FINDINGS: Lungs: Hyperinflation and mild interstitial prominence, without acute airspace disease. Pleural spaces: No pleural effusion. Heart/Mediastinum: Normal configuration of the heart. Bones/joints: Mild scoliosis. XR/XR chest 1V portable [id number] IMPRESSION: Hyperinflation and mild interstitial prominence, without acute airspace disease.
--- NOTE | 2021-10-01 06:52 | W.ED.NAVMDI ---
HPI - Nausea/Vomiting/Diarrhea General: Chief complaint: Nausea/Vomiting/Diarrhea Stated complaint: possible DKA Time Seen by Provider: 10/01/21 06:26 Source: patient Mode of arrival: ambulatory History of Present Illness: 26-year-old male presents emergency room with complaints of elevated blood sugars and nausea. He does not have any vomiting to this point yet. Patient is nondiabetic he has been without his Toujeo for about the last 5 to 6 days. He has had polyuria and polydipsia no vomiting no abdominal pain no diarrhea no other symptoms. He has had problems with DKA in the past states he feels similar to what he had previously. MD elicited complaint: nausea Onset (ago): day(s) Associated nausea: Yes Associated abdominal pain: No Location of pain: None Severity: moderate Exacerbating factors: none Relieving factors: none Associated symtoms: Reports fatigue, anorexia, malaise, nausea and weakness; Denies altered mental status, anxiety, bloating, change in vision, chest pain, cough, diaphoresis, decreased urine output, dizziness, dysuria, epistaxis, fecal incontinence, fevers/chills, headache(s), myalgias, numbness, palpitations, rash, short of breath, syncope, tenesmus or tinnitus Review of Systems Const: Reports: fatigue and malaise; Denies: fever(s), chills or diaphoresis Eyes: Denies: change in vision ENMT: Denies: tinnitus or epistaxis Card: Denies: chest pain, palpitations or syncope Resp: Denies: dyspnea, productive cough or non-productive cough GI: Reports: nausea; Denies: abdominal pain, vomiting, diarrhea, bloating or fecal incontinence : Denies: dysuria Skin/Breast: Denies: rash or pruritus Neuro: Denies: headache(s) or dizziness Psych: Denies: anxiety PFSH ED PFSH: Medical History History of pericarditis (~2016) occurred after appendectomy Nicotine dependence, chewing tobacco, with unspecified nicotine-induced disorders Type 1 diabetes mellitus Type 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 Mildly depressed EF at 50% with mild inferior wall hypokinesis. History of tonsillectomy Family History Other Diabetes Social History Smoking and tobacco status: current every day smoker cigarettes [ Other cigarette details: occasional use] and smokeless tobacco Alcohol intake: current Alcohol intake frequency: holidays/special occasions only Current occupational status: employed Physical Exam Const: EXAM LIMITATIONS: no altered mental status GENERAL APPEARANCE: cooperative and comfortable ORIENTATION/CONSCIOUSNESS: Yes awake, Yes oriented to person, Yes oriented to place and Yes oriented to time HENMT: COMMON NORMALS: normocephalic, atraumatic, hearing grossly normal bilaterally, external ears normal, EAC's normal, TM's normal bilaterally and Normal nasal mucous membranes and turbinates present HEAD & SCALP: normocephalic and atraumatic NOSE: Normal nasal mucous membranes and turbinates present EXTERNAL EAR: Yes external ears normal EXTERNAL AUDITORY CANAL: EAC's normal TYMPANIC MEMBRANE: TM's normal bilaterally Eye: COMMON NORMALS: Equal, round and reactive pupils present, EOMs intact bilaterally, conjunctivae normal and no scleral icterus CONJUNCTIVA: Yes conjunctivae normal PUPIL: Yes Equal, round and reactive pupils present Resp: COMMON NORMALS: normal respiratory effort, No retractions, No use of accessory muscles and clear to auscultation bilaterally AUSCULTATION: clear to auscultation bilaterally Cardio: COMMON NORMALS: regular rate, regular rhythm and No murmurs present (Cardio) RATE: regular rate RHYTHM: regular rhythm GI: COMMON NORMALS: Soft to palpation and No hepatosplenomegaly present AUSCULTATION: Yes normoactive bowel sounds PALPATION: Yes Soft to palpation, No Tenderness to palpation present (GI), No Guarding due to palpation present (GI) and Yes No hepatosplenomegaly present Extremity: COMMON NORMALS: normal to inspection, capillary refill normal, no clubbing, cyanosis or edema, no calf tenderness and no pedal edema Neuro: SENSORIUM/ORIENTATION: Yes oriented to person, Yes oriented to place and Yes oriented to time Skin: COMMON NORMALS: no rashes or lesions noted GENERAL SKIN EXAM: no rashes or lesions noted Course Vital Signs: Vital signs: Vital Signs Temperature 97.7 F 10/02/21 04:34 Pulse Rate 80 10/02/21 10:00 Respiratory Rate 18 10/02/21 10:00 Blood Pressure 112/69 10/02/21 10:00 Pulse Oximetry 99 10/02/21 10:00 Oxygen Delivery Me thod 10/02/21 10:00 MDM - Nausea/Vomiting/Diarrhea Medical Decision Making Does not have ketones but is mildly acidotic with mild anion gap. We will go ahead and admit him. He seems to be in early DKA. He has previously had the same presentation with nausea and vomiting hyperglycemia and negative ketones his most recent hospitalization he did have positive ketones. He has been given fluids started on insulin discussed with hospitalist orders written Medical Records I reviewed the patient's medical records. Lab Data I reviewed the patient's lab results. : 10/02/21 04:34 10/02/21 04:34 Radiology Impressions Chest X-Ray 10/01/21 06:40 IMPRESSION: Hyperinflation and mild interstitial prominence, without acute airspace disease. Laboratory Results WBC 7.8 10^3/uL (4.0-10.0) 10/01/21 06:43 RBC 5.68 10^6/uL (4.1-5.3) H 10/01/21 06:43 Hgb 16.9 g/dL (11.7-16.6) H 10/01/21 06:43 Hct 50.2 % (42.0-52.0) 10/01/21 06:43 MCV 88.4 fl (80-94) 10/01/21 06:43 MCH 29.8 pg (28.0-34.0) 10/01/21 06:43 MCHC 33.7 g/dL (30.0-36.0) 10/01/21 06:43 RDW 11.8 % (12.1-15.1) L 10/01/21 06:43 Plt Count 312 10^3/cmm (130-400) 10/01/21 06:43 MPV 10.3 fL (7.4-10.4) 10/01/21 06:43 Neut % (Auto) 59.5 % 10/01/21 06:43 Lymph % (Auto) 28.9 % 10/01/21 06:43 [place] % (Auto) 6.7 % 10/01/21 06:43 Eos % (Auto) 3.5 % 10/01/21 06:43 Baso % (Auto) 1.0 % 10/01/21 06:43 Neut # (Auto) 4.64 10^3/uL (1.8-7.7) 10/01/21 06:43 Lymph # (Auto) 2.3 10^3/uL (0.8-4.8) 10/01/21 06:43 [place] # (Auto) 0.5 10^3/uL (0.2-0.9) 10/01/21 06:43 Eos # (Auto) 0.3 10^3/uL (0.0-0.8) 10/01/21 06:43 Baso # (Auto) 0.1 10^3/uL (0.0-0.1) 10/01/21 06:43 Nucleated RBC % (auto) 0 % 10/01/21 06:43 Nucleated RBCs # 0.0 /100WBC 10/01/21 06:43 Specimen Type Arterial 10/01/21 06:42 Sample Site Radial, left 10/01/21 06:42 ABG pH 7.20 (7.35-7.45) L 10/01/21 06:42 ABG pCO2 23.1 mmHg (35-45) L 10/01/21 06:42 ABG pO2 99.5 mmHg (80.0-100.0) 10/01/21 06:42 ABG HCO3 9.0 mmol/L (22-26) L 10/01/21 06:42 ABG O2 Saturation 97.6 10/01/21 06:42 ABG Base Excess -16.9 mmol/L (-2.0-2.0) L 10/01/21 06:42 Gino Test Pos 10/01/21 06:42 A-a O2 Gradient 2.5 mmHg (5-10) L 10/01/21 06:42 Hematocrit 50.7 % (42-52) 10/01/21 06:42 Hgb O2 Saturation 95.9 % (95-100) 10/01/21 06:42 Carboxyhemoglobin 1.0 %THgb (0.4-20.1) 10/01/21 06:42 Methemoglobin 0.7 % (0.4-1.5) 10/01/21 06:42 Total Hemoglobin 16.5 g/dL (14-18) 10/01/21 06:42 Sodium 134.0 mmol/L (131-143) 10/01/21 06:42 Potassium 4.7 mmol/L (3.5-5.0) 10/01/21 06:42 Glucose 561.0 mg/dL (70-115) H 10/01/21 06:42 Ionized Calcium 1.3 mmol/L (1.1-1.4) 10/01/21 06:42 O2 Delivery Device Roomair 10/01/21 06:42 FiO2 21.0 % 10/01/21 06:42 Teamcenter Consultant ID [place] 10/01/21 06:42 Sodium 131 mmol/L (136-145) L 10/01/21 06:43 Potassium 5.1 mmol/L (3.5-5.1) 10/01/21 06:43 Chloride 88 mmol/L (98-107) L 10/01/21 06:43 Carbon Dioxide 15 mmol/L (22-29) L 10/01/21 06:43 Anion Gap 33.1 (5-19) H 10/01/21 06:43 BUN 19 mg/dL (6-20) 10/01/21 06:43 Creatinine 0.9 mg/dL (0.7-1.2) 10/01/21 06:43 GFR Calculation 100.5 mL/min (90-130) 10/01/21 06:43 Glucose 601 mg/dL (65-115) H* 10/01/21 06:43 POC Glucose 278 mg/dL (70-110) H 10/01/21 12:16 Calculated Osmolality 302 mOsm/kg (285-295) H 10/01/21 06:43 Calcium 10.2 mg/dL (8.5-10.5) 10/01/21 06:43 Total Bilirubin 0.5 mg/dL (0.15-1.2) 10/01/21 06:43 AST 10 U/L (0-40) 10/01/21 06:43 ALT 15 U/L (0-41) 10/01/21 06:43 Alkaline Phosphatase 151 U/L (40-130) H 10/01/21 06:43 Total Protein 8.4 g/dL (6.6-8.7) 10/01/21 06:43 Albumin 5.1 g/dL (3.5-5.2) 10/01/21 06:43 Globulin 3.3 g/dL (1.3-4.6) 10/01/21 06:43 TSH 0.96 uIU/mL (0.27-4.20) 10/01/21 06:43 Urine Color Straw (Yellow) 10/01/21 06:43 Urine Appearance Clear (CLEAR) 10/01/21 06:43 Urine pH 5 (5-7) 10/01/21 06:43 Ur Specific [place] 1.015 (1.005-1.030) 10/01/21 06:43 Urine Protein Neg (Negative) 10/01/21 06:43 Urine Glucose (UA) 4+ (Normal) H 10/01/21 06:43 Urine Ketones 1+ (Negative) H 10/01/21 06:43 Urine Blood Trace (Negative) H 10/01/21 06:43 Urine Nitrate Negative (Negative) 10/01/21 06:43 Urine Bilirubin Neg (Negative) 10/01/21 06:43 Urine Urobilinogen Norm mg/dL (Negative) 10/01/21 06:43 Ur Leukocyte Esterase Negative (Negative) 10/01/21 06:43 Urine RBC None /hpf (0-2) 10/01/21 06:43 Urine WBC None /hpf (0-5) 10/01/21 06:43 Ur Squamous Epith Cells None /hpf (0-5) 10/01/21 06:43 Amorphous Sediment Not Reportable 10/01/21 06:43 Urine Bacteria None /hpf (NONE) 10/01/21 06:43 Serum Ketones Negative (Negative) 10/01/21 06:43 Discharge Plan Discharge Patient Disposition: Admitted As Inpatient Admit Provider: Abner Gayle Clinical Impression: Hyperosmolar hyperglycemic state (HHS), Diabetes mellitus, Metabolic acidosis Condition: Stable Discharge Diet: Diabetic Discharge Activity: Increase activity as tolerated Coding Level of Care Code ED Licensed Retail Supervisor for Chg Fwd Exam Comprehensive
[2021-10-01 06:54] LABS: ABG PCO2 23.1 mmHg (35-45); Alveolar-Arterial Oxygen Gradi 2.5 mmHg (5-10); Arterial Blood Gas Hematocrit 50.7 % (42-52); Base Excess ABG -16.9 mmol/L (-2.0-2.0); Blood Gas Allen Test Pos; Blood Gas Operator Identificat WALCI; Blood Gas Sample Site Radial, left; Blood Gas Sample Type Arterial; HGB O2 Sat 95.9 % (95-100); Ionized Calcium Level - ABG 1.3 mmol/L (1.1-1.4); Methemoglobin 0.7 % (0.4-1.5); Oxygen Saturation ABG 97.6; PO2 ABG 99.5 mmHg (80.0-100.0); Potassium Level - ABG 4.7 mmol/L (3.5-5.0); Total Hemoglobin 16.5 g/dL (14-18)
[2021-10-01] MEDS: ondansetron 2 mg/ML SDV 2 mL 4 MG IVP (06:56)
[2021-10-01] MEDS: sodium chloride 0.9% 1,000 ML 999 ML IV ×2 (06:57→08:01)
--- NOTE | 2021-10-01 07:02 | PC.NURSE ---
pt resting in bed, significant other at bedside. NS infusing into IV without difficulty. Lung sounds clear bilat. Bowel sounds present. Skin pink/warm/dry. Pt reports nausea, chest pain, increased thirst, and dry mouth. Reports he has been in DKA before and this feels the same. Denies headaches or blurred vision. Warm blanket given for comfort. Call light within reach.
[2021-10-01 07:10] LABS: Basophils # 0.1 10^3/uL (0.0-0.1); Eosinophils # 0.3 10^3/uL (0.0-0.8); Eosinophils % 3.5 %; Hematocrit 50.2 % (42.0-52.0); Hemoglobin 16.9 g/dL (11.7-16.6); Lymphocytes # 2.3 10^3/uL (0.8-4.8); Lymphocytes % 28.9 %; Mean Corpuscular HGB Conc 33.7 g/dL (30.0-36.0); Mean Corpuscular Hemoglobin 29.8 pg (28.0-34.0); Mean Corpuscular Volume 88.4 fl (80-94); Mean Platelet Volume 10.3 fL (7.4-10.4); Monocytes # 0.5 10^3/uL (0.2-0.9); Monocytes % 6.7 %; Neutrophils # 4.64 10^3/uL (1.8-7.7); Neutrophils % 59.5 %; Nucleated Red Blood Cells % 0 %; Platelet Count 312 10^3/cmm (130-400); Red Blood Count 5.68 10^6/uL (4.1-5.3); Red Cell Distribution Width 11.8 % (12.1-15.1); White Blood Count 7.8 10^3/uL (4.0-10.0)
[2021-10-01 07:23] LABS: Alanine Aminotransferase 15 U/L (0-41); Albumin Level 5.1 g/dL (3.5-5.2); Alkaline Phosphatase 151 U/L (40-130); Anion Gap 33.1 (5-19); Aspartate Amino Transferase 10 U/L (0-40); Blood Urea Nitrogen 19 mg/dL (6-20); Calcium 10.2 mg/dL (8.5-10.5); Carbon Dioxide 15 mmol/L (22-29); Chloride 88 mmol/L (98-107); Globulin 3.3 g/dL (1.3-4.6); Glomerular Filtration Rate 100.5 mL/min (90-130); Osmolality Calculated 302 mOsm/kg (285-295); Potassium 5.1 mmol/L (3.5-5.1); Sodium 131 mmol/L (136-145); Total Bilirubin 0.5 mg/dL (0.15-1.2); Total Protein 8.4 g/dL (6.6-8.7)
--- NOTE | 2021-10-01 07:23 | ECG_ITS ---
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 Measurements Intervals Strong Rate: 93 P: 72 IN: 150 QRS: 79 QRSD: 88 T: 46 QT: 357 QTc: 444 Interpretive Statements SINUS RHYTHM Compared to ECG 04/02/2021 00:58:45 Sinus tachycardia no longer present Electronically Signed On 10-01-2021 22:42:26 CDT by Malka Cerda M.D. [id number]
--- NOTE | 2021-10-01 07:25 | PC.NURSE ---
physician notified of pt reported chest pain
[2021-10-01 07:35] LABS: Bilirubin Urine Neg (Negative); Blood Urine Trace (Negative); Glucose 601 mg/dL (65-115); Glucose Urine UA 4+ (Normal); Ketones Urine 1+ (Negative); Leukocyte Esterase Urine Negative (Negative); Nitrate Urine Negative (Negative); Protein Urine Neg (Negative); Specific Gravity, Urine 1.015 (1.005-1.030); Urine Appearance Clear (CLEAR); Urine Color Straw (Yellow); pH Urine 5 (5-7)
[2021-10-01 07:36] LABS: Add Urine Microscopic? YES; Ketone (Acetest) Serum Negative (Negative); Urobilinogen Urine Norm (Negative)
--- NOTE | 2021-10-01 08:09 | PC.PHAR ---
pts verified pts medications-rx filled 07/08/21 30d/s for toujeo max u-300 solostar 80 units titrating up to max of 120 units per day as directed pts states pt just been using 70 to 75 units daily-pts states normally the pt uses the humalog kwikpen states they changed her child to a different insulin so they have been using her sons cartridge of humalog-states the pt is suppose to use 20 units with meals plus sliding scale-but states pt just uses sliding scale with meals-notes are made in the pharmacy comments
[2021-10-01 08:37] LABS: Glucose Point of Care 460 mg/dL (70-110)
[2021-10-01 09:09] LABS: Glucose Point of Care 452 mg/dL (70-110)
[2021-10-01] MEDS: insulin regular-human 250 UNIT in sodium chloride 0.9% 250 ML 11.8 UNIT IV (09:11)
--- NOTE | 2021-10-01 09:22 | PC.NURSE ---
insulin gtt decreased to 10 units/hr due to gaurdrails on pump for initiation of medication.
[2021-10-01 10:15] LABS: Glucose Point of Care 331 mg/dL (70-110)
[2021-10-01] MEDS: insulin regular-human 250 UNIT in sodium chloride 0.9% 250 ML 10.8 UNIT IV (10:17)
--- NOTE | 2021-10-01 10:46 | PM.HP ---
Providers/Chief Complaint Admitting Physician: Abner Gayle MD Primary Care Provider: Lonny Reynolds DO Chief Complaint: possible DKA History of Present Illness Kojo Thomas is a 26 year old male who presents with nausea, elevated sugar. He has not yet vomited. He reports no abdominal pain. He states his sugars been running quite high, and he is taken some short acting insulin once or twice in the last 6 days but no long-acting insulin as he ran out secondary to cost. He reports he can no longer afford his Toujeo which costs approximately $90 a month. He recently established with Dr. Reynolds. He has an margin analyst in [place] which he reports he saw about 6 months ago. He states his control is typically poor. He does not think he can drop any insulin himself, as he thinks that it takes too much time and feels like he needs a pen to be compliant. No recent fevers, blood in stool black or tarry stool. In the emergency department he was rehydrated with IV fluids, and initiated on an insulin drip. Review of Systems General: Reports: 10 or more systems reviewed and unremarkable except in HPI and below Const: Denies: fever(s) or chills Eyes: Denies: change in vision ENMT: Denies: throat pain Card: Denies: chest pain Resp: Denies: dyspnea GI: Reports: nausea; Denies: abdominal pain or vomiting : Denies: flank pain Musc: Denies: neck pain Skin/Breast: Denies: rash Neuro: Denies: headache(s) Psych: Denies: anxiety or depression Endo: Reports: polyuria Dru/Lymph: Denies: easy bruising All/Imm: Denies: urticaria Medications/Allergies Home Medications Medication Instructions Recorded Confirmed Last Taken Type acetaminophen 500 mg tablet 500 - 1,000 mg PO Q6H PRN Pain 12/31/20 10/01/21 Unknown History ibuprofen 200 mg tablet 800 mg PO Q6H PRN Pain 12/31/20 10/01/21 Unknown History insulin glargine U-300 conc 300 70 - 75 unit SUBCUT DAILY@11 12/31/20 10/01/21 09/27/21 History unit/mL (3 mL) subcutaneous pen (Toujeo Max U-300 SoloStar) insulin lispro 100 unit/mL See Rx Instructions .Route .COMPLEX 10/01/21 10/01/21 09/27/21 History subcutaneous cartridge (Humalog U-100 Insulin) Allergies Allergy/AdvReac Type Severity Reaction Status Date / Time No Known Allergies Allergy Verified 02/16/21 13:20 PFSH Acute PFSH: Medical History History of pericarditis (~2016) occurred after appendectomy Nicotine dependence, chewing tobacco, with unspecified nicotine-induced disorders Type 1 diabetes mellitus Type I diabetes mellitus (~2010) 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 Mildly depressed EF at 50% with mild inferior wall hypokinesis. History of tonsillectomy Family History Other Diabetes Social History Smoking and tobacco status: current every day smoker cigarettes [ Other cigarette details: occasional use] and smokeless tobacco Alcohol intake: current Alcohol intake frequency: holidays/special occasions only Current occupational status: employed Vitals/I&O/Wt Last Vital Signs Temp 97.5 F L 10/01/21 06:32 Pulse 92 10/01/21 08:30 Resp 14 10/01/21 08:30 BP 108/65 10/01/21 08:30 Pulse Ox 99 10/01/21 08:30 O2 Del Method 10/01/21 07:08 09/30/21 10/01/21 10/01/21 22:59 06:59 14:59 Intake Total 1011.27 / 1011.27 Balance 1011.27 / 1011.27 Weight last 48 hrs Weight 70.307 kg Physical Exam Narrative: General exam is a white male, no distress HEENT: Atraumatic and normocephalic. Pupils equally round. Oropharynx is clear. Mucous membranes are dry. Neck is supple no lymphadenopathy thyromegaly JVD or bruit Cardiovascular regular rate and rhythm, no murmur Lungs clear no wheezing or crackles Abdomen is soft, positive bowel sounds. No obvious organomegaly exams deferred Extremities no cyanosis clubbing or edema, cap refill brisk Skin no rash Neuro no obvious focal deficits. Data : 10/01/21 06:43 10/01/21 06:43 Other Labs: pH 7.20, PCO2 23, PO2 99 on room air LFTs normal with exception of alk phos of 151 Urinalysis negative. Ketones 1+ Serum ketones negative Chest x-ray no infiltrate EKG sinus rhythm, normal axis, no acute changes A&P Assessment and plan (1) Hyperosmolar hyperglycemic state (HHS): Patient with borderline DKA as well. Urine ketones are positive but serum ketones negative. He has significant anion gap metabolic acidosis. Continue hydration Serial electrolytes Insulin drip Conversion to long-acting insulin with sliding scale when appropriate Observation is appropriate in his case Discharge planning to see regarding affordability of long acting insulin Check TSH Status: Acute (2) Metabolic acidosis: Status: Acute Plan Full code Low risk for DVT Attestations Medical Necessity Statement*: Will need less than 2 midnight stay for evaluation and treatment of hyperosmolar hyperglycemic state Coding Level of Care Code Acute Dial Brusher for Chg Fwd Diagnoses Hyperosmolar hyperglycemic state (HHS) E11.00 Metabolic acidosis E87.2
[2021-10-01 11:23] LABS: Thyroid Stimulating Hormone 0.96 uIU/mL (0.27-4.20)
[2021-10-01 11:24] LABS: Glucose Point of Care 276 mg/dL (70-110)
[2021-10-01] MEDS: insulin regular-human 250 UNIT in sodium chloride 0.9% 250 ML 8 UNIT IV (11:31)
--- NOTE | 2021-10-01 11:39 | PC.NURSE ---
Spoke with ED physician regarding rate of patients decreasing blood sugars. Okay to decrease insulin gtt.
--- NOTE | 2021-10-01 12:18 | PC.NURSE ---
Finger stick BS = 278
[2021-10-01 12:20] LABS: Glucose Point of Care 278 mg/dL (70-110)
--- NOTE | 2021-10-01 12:26 | PC.NURSE ---
report given to ADY Flores in ICU
[2021-10-01 13:27] LABS: Oxygen Device ROOMAIR
[2021-10-01 13:34] LABS: Glucose Point of Care 230 mg/dL (70-110)
[2021-10-01] MEDS: famotidine 20 mg/2 mL INJ IVP (13:37)
[2021-10-01] MEDS: D5-NS 0.45% + KCL 20 mEq 20 MEQ/1,000 ML BAG 125 MEQ IV ×2 (13:37→20:57)
[2021-10-01 13:48] LABS: Anion Gap 25.3 (5-19); Blood Urea Nitrogen 16 mg/dL (6-20); Carbon Dioxide 15 mmol/L (22-29); Chloride 99 mmol/L (98-107); Creatinine Clr Calc Pharmacy 150.5832; Glomerular Filtration Rate 115.1 mL/min (90-130); Glucose 238 mg/dL (65-115); Osmolality Calculated 289 mOsm/kg (285-295); Phosphorus 3.4 mg/dL (2.5-4.5); Potassium 4.3 mmol/L (3.5-5.1); Sodium 135 mmol/L (136-145)
[2021-10-01 14:26] LABS: Glucose Point of Care 256 mg/dL (70-110)
[2021-10-01 15:54] LABS: Glucose Point of Care 203 mg/dL (70-110)
[2021-10-01 16:44] LABS: Glucose Point of Care 187 mg/dL (70-110)
[2021-10-01 18:11] LABS: Glucose Point of Care 180 mg/dL (70-110)
[2021-10-01 18:55] LABS: Glucose Point of Care 277 mg/dL (70-110)
[2021-10-01 20:04] LABS: Glucose Point of Care 251 mg/dL (70-110)
[2021-10-01 20:25] LABS: Blood Urea Nitrogen 12 mg/dL (6-20); Calcium 8.7 mg/dL (8.5-10.5); Carbon Dioxide 20 mmol/L (22-29); Chloride 100 mmol/L (98-107); Glomerular Filtration Rate 134.3 mL/min (90-130); Glucose 267 mg/dL (65-115); Osmolality Calculated 283 mOsm/kg (285-295); Sodium 132 mmol/L (136-145)
[2021-10-01 20:31] LABS: Anion Gap 16.5 (5-19); Potassium 4.5 mmol/L (3.5-5.1)
[2021-10-01] MEDS: potassium chloride ER 20 mEq Tablet PO (20:56)
[2021-10-01 21:01] LABS: Glucose Point of Care 179 mg/dL (70-110)
[2021-10-01 22:05] LABS: Glucose Point of Care 152 mg/dL (70-110)
[2021-10-01 23:10] LABS: Glucose Point of Care 81 mg/dL (70-110)
[2021-10-01 23:16] LABS: Blood Urea Nitrogen 13 mg/dL (6-20); Calcium 9.4 mg/dL (8.5-10.5); Carbon Dioxide 25 mmol/L (22-29); Chloride 104 mmol/L (98-107); Creatinine Clr Calc Pharmacy 150.5832; Glomerular Filtration Rate 115.1 mL/min (90-130); Glucose 103 mg/dL (65-115); Magnesium 1.6 mg/dL (1.7-2.3); Osmolality Calculated 282 mOsm/kg (285-295); Phosphorus 3.4 mg/dL (2.5-4.5); Sodium 136 mmol/L (136-145)
[2021-10-01] MEDS: magnesium sulfate premix 4 GM/100 ML PREMIX IV (23:47)
[2021-10-02] VITALS (29 sets, daily range): BP systolic 90–112; BP diastolic 53–69; PULSE 60–80; RESP 9–23; TEMP 36.5; O2SAT 95–100
[2021-10-02] MEDS: famotidine 20 mg/2 mL INJ IVP (01:50)
[2021-10-02 01:57] LABS: Glucose Point of Care 126 mg/dL (70-110)
[2021-10-02 05:36] LABS: Basophils % 0.6 %; Eosinophils # 0.3 10^3/uL (0.0-0.8); Eosinophils % 4.7 %; Hemoglobin 13.7 g/dL (11.7-16.6); Lymphocytes # 2.2 10^3/uL (0.8-4.8); Mean Corpuscular HGB Conc 34.3 g/dL (30.0-36.0); Mean Corpuscular Hemoglobin 29.8 pg (28.0-34.0); Mean Platelet Volume 9.9 fL (7.4-10.4); Monocytes # 0.4 10^3/uL (0.2-0.9); Monocytes % 6.4 %; Neutrophils # 3.56 10^3/uL (1.8-7.7); Nucleated Red Blood Cells % 0 %; Platelet Count 265 10^3/cmm (130-400); Red Cell Distribution Width 12.1 % (12.1-15.1); White Blood Count 6.6 10^3/uL (4.0-10.0)
[2021-10-02 05:53] LABS: Anion Gap 13.5 (5-19); Blood Urea Nitrogen 11 mg/dL (6-20); Calcium 8.7 mg/dL (8.5-10.5); Carbon Dioxide 23 mmol/L (22-29); Chloride 104 mmol/L (98-107); Glomerular Filtration Rate 160.4 mL/min (90-130); Glucose 183 mg/dL (65-115); Magnesium 2.1 mg/dL (1.7-2.3); Osmolality Calculated 286 mOsm/kg (285-295); Potassium 4.5 mmol/L (3.5-5.1); Sodium 136 mmol/L (136-145)
[2021-10-02 07:18] LABS: Glucose Point of Care 160 mg/dL (70-110)
[2021-10-02] MEDS: insulin lispro 100 unit/1 mL SUBCUT (08:45)
--- NOTE | 2021-10-02 08:58 | P.DS_ITS ---
Discharge Providers Date of Admission: 10/01/21 13:05 Date of Discharge: October 02, 2021 Attending Provider at Admission: Abner Gayle MD Attending Provider at Discharge: Abner Gayle MD Primary Care Provider: Lonny Reynolds DO Diagnoses at Discharge Discharge Diagnosis (1) Hyperosmolar hyperglycemic state (HHS): Status: Acute (2) Metabolic acidosis: Status: Acute Reason for Visit Reason for Visit: possible DKA Hospital Course Hospital Course Kojo is a 26-year-old white male who presented to the hospital with markedly elevated sugar and anion gap metabolic acidosis. Urine ketones were positive, serum ketones negative. He was significantly nauseated and could not eat. He had not taken his Toujeo in approximately 6 days. He was diagnosed with hyperosmolar state, borderline DKA and given hydration, insulin drip, and close management of electrolytes. As anion gap resolved he was started on long-acting insulin and a p.o. diet. On day of discharge his anion gap was within normal limits. He was eating. I discussed with him long-acting insulin, and he selected Levemir to take at home as the expensive Toujeo is too much. I discussed with him following up with Dr. Reynolds to get the medication on the 340 B program. He agreed. I offered him to visit with the dietitian regarding his short acting insulin which he reported he had plenty of. He did not want to talk with the dietitian, reporting that he was doing the best he can counting carbs and did not want any further education. He agreed to follow-up with his assistant district attorney as well as his primary care provider. Physical Exam Narrative: General exam no apparent distress Neck is supple no lymphadenopathy thyromegaly Cardiovascular regular rate and rhythm without murmur Lungs clear Abdomen is soft nontender positive bowel sounds. Skin no rash Discharge Data Studies Completed and Pending Completed Studies During Hospitalization Category Date Time Status XR chest 1V portable [id number] Stat Exams 10/01/21 06:40 Completed Radiology Impressions Chest X-Ray 10/01/21 06:40 IMPRESSION: Hyperinflation and mild interstitial prominence, without acute airspace disease. Laboratory Results WBC 6.6 10^3/uL (4.0-10.0) 10/02/21 04:34 RBC 4.60 10^6/uL (4.1-5.3) 10/02/21 04:34 Hgb 13.7 g/dL (11.7-16.6) 10/02/21 04:34 Hct 40.0 % (42.0-52.0) L 10/02/21 04:34 MCV 87.0 fl (80-94) 10/02/21 04:34 MCH 29.8 pg (28.0-34.0) 10/02/21 04:34 MCHC 34.3 g/dL (30.0-36.0) 10/02/21 04:34 RDW 12.1 % (12.1-15.1) 10/02/21 04:34 Plt Count 265 10^3/cmm (130-400) 10/02/21 04:34 MPV 9.9 fL (7.4-10.4) 10/02/21 04:34 Neut % (Auto) 54.0 % 10/02/21 04:34 Lymph % (Auto) 34.0 % 10/02/21 04:34 Benzie % (Auto) 6.4 % 10/02/21 04:34 Eos % (Auto) 4.7 % 10/02/21 04:34 Baso % (Auto) 0.6 % 10/02/21 04:34 Neut # (Auto) 3.56 10^3/uL (1.8-7.7) 10/02/21 04:34 Lymph # (Auto) 2.2 10^3/uL (0.8-4.8) 10/02/21 04:34 Benzie # (Auto) 0.4 10^3/uL (0.2-0.9) 10/02/21 04:34 Eos # (Auto) 0.3 10^3/uL (0.0-0.8) 10/02/21 04:34 Baso # (Auto) 0.0 10^3/uL (0.0-0.1) 10/02/21 04:34 Nucleated RBC % (auto) 0 % 10/02/21 04:34 Nucleated RBCs # 0.0 /100WBC 10/02/21 04:34 Specimen Type Arterial 10/01/21 06:42 Sample Site Radial, left 10/01/21 06:42 ABG pH 7.20 (7.35-7.45) L 10/01/21 06:42 ABG pCO2 23.1 mmHg (35-45) L 10/01/21 06:42 ABG pO2 99.5 mmHg (80.0-100.0) 10/01/21 06:42 ABG HCO3 9.0 mmol/L (22-26) L 10/01/21 06:42 ABG O2 Saturation 97.6 10/01/21 06:42 ABG Base Excess -16.9 mmol/L (-2.0-2.0) L 10/01/21 06:42 Gino Test Pos 10/01/21 06:42 A-a O2 Gradient 2.5 mmHg (5-10) L 10/01/21 06:42 Hematocrit 50.7 % (42-52) 10/01/21 06:42 Hgb O2 Saturation 95.9 % (95-100) 10/01/21 06:42 Carboxyhemoglobin 1.0 %THgb (0.4-20.1) 10/01/21 06:42 Methemoglobin 0.7 % (0.4-1.5) 10/01/21 06:42 Total Hemoglobin 16.5 g/dL (14-18) 10/01/21 06:42 Sodium 134.0 mmol/L (131-143) 10/01/21 06:42 Potassium 4.7 mmol/L (3.5-5.0) 10/01/21 06:42 Glucose 561.0 mg/dL (70-115) H 10/01/21 06:42 Ionized Calcium 1.3 mmol/L (1.1-1.4) 10/01/21 06:42 O2 Delivery Device Roomair 10/01/21 06:42 FiO2 21.0 % 10/01/21 06:42 Roll Inspector ID [place] 10/01/21 06:42 Sodium 136 mmol/L (136-145) 10/02/21 04:34 Potassium 4.5 mmol/L (3.5-5.1) 10/02/21 04:34 Chloride 104 mmol/L (98-107) 10/02/21 04:34 Carbon Dioxide 23 mmol/L (22-29) 10/02/21 04:34 Anion Gap 13.5 (5-19) 10/02/21 04:34 BUN 11 mg/dL (6-20) 10/02/21 04:34 Creatinine 0.6 mg/dL (0.7-1.2) L 10/02/21 04:34 GFR Calculation 160.4 mL/min (90-130) H 10/02/21 04:34 Glucose 183 mg/dL (65-115) H 10/02/21 04:34 POC Glucose 160 mg/dL (70-110) H 10/02/21 07:12 Calculated Osmolality 286 mOsm/kg (285-295) 10/02/21 04:34 Calcium 8.7 mg/dL (8.5-10.5) 10/02/21 04:34 Phosphorus 3.4 mg/dL (2.5-4.5) 10/01/21 22:42 Magnesium 2.1 mg/dL (1.7-2.3) 10/02/21 04:34 Total Bilirubin 0.5 mg/dL (0.15-1.2) 10/01/21 06:43 AST 10 U/L (0-40) 10/01/21 06:43 ALT 15 U/L (0-41) 10/01/21 06:43 Alkaline Phosphatase 151 U/L (40-130) H 10/01/21 06:43 Total Protein 8.4 g/dL (6.6-8.7) 10/01/21 06:43 Albumin 5.1 g/dL (3.5-5.2) 10/01/21 06:43 Globulin 3.3 g/dL (1.3-4.6) 10/01/21 06:43 TSH 0.96 uIU/mL (0.27-4.20) 10/01/21 06:43 Urine Color Straw (Yellow) 10/01/21 06:43 Urine Appearance Clear (CLEAR) 10/01/21 06:43 Urine pH 5 (5-7) 10/01/21 06:43 Ur Specific [place] 1.015 (1.005-1.030) 10/01/21 06:43 Urine Protein Neg (Negative) 10/01/21 06:43 Urine Glucose (UA) 4+ (Normal) H 10/01/21 06:43 Urine Ketones 1+ (Negative) H 10/01/21 06:43 Urine Blood Trace (Negative) H 10/01/21 06:43 Urine Nitrate Negative (Negative) 10/01/21 06:43 Urine Bilirubin Neg (Negative) 10/01/21 06:43 Urine Urobilinogen Norm mg/dL (Negative) 10/01/21 06:43 Ur Leukocyte Esterase Negative (Negative) 10/01/21 06:43 Urine RBC None /hpf (0-2) 10/01/21 06:43 Urine WBC None /hpf (0-5) 10/01/21 06:43 Ur Squamous Epith Cells None /hpf (0-5) 10/01/21 06:43 Amorphous Sediment Not Reportable 10/01/21 06:43 Urine Bacteria None /hpf (NONE) 10/01/21 06:43 Serum Ketones Negative (Negative) 10/01/21 06:43 Vitals Last Vital Signs Temp 97.7 F 10/02/21 04:34 Pulse 71 10/02/21 08:00 Resp 12 10/02/21 08:00 BP 100/62 10/02/21 08:00 Pulse Ox 96 10/02/21 08:00 O2 Del Method 10/02/21 08:00 Discharge Plan Discharge Patient Disposition: Home Condition: Stable Prescriptions: New Levemir FlexTouch U-100 Insuln 100 unit/mL (3 mL) insulin pen 30 unit SUBCUT BID Qty: 15 0RF Continued acetaminophen 500 mg Tablet 500 - 1,000 mg PO Q6H PRN (Reason: Pain) Humalog U-100 Insulin 100 unit/mL Cartridge See Rx Instructions .ROUTE .COMPLEX Rx Instructions: sliding scale with meals Discontinued ibuprofen 200 mg Tablet 800 mg PO Q6H PRN (Reason: Pain) Toujeo Max U-300 SoloStar 300 unit/mL (3 mL) insulin pen 70 - 75 unit SUBCUT DAILY@11 Discharge Orders: Discharge Order (Routine); Ordered 10/02/21 Ordered By: Abner Gayle Referrals: Lonny Reynolds DO [Primary Care Provider] - 4-7 days Breana Ballesteros [Referring] - Discharge Diet: Diabetic Discharge Activity: Increase activity as tolerated Patient Instructions: Opioid Safety Activity Restrictions/Additional Instructions: Take all medicine as prescribed Follow-up with your primary care provider 3 to 5 days Follow-up with your assistant district attorney Nurse to use meds to beds Discharge Attestations Time Spent in Discharge Care*: greater than 30 min Quality Metrics Clinical Quality Measures [ No reported AMI, CVA or VTE this stay] Coding Level of Care Code Acute Chg FW DC note Diagnoses Hyperosmolar hyperglycemic state (HHS) E11.00 Metabolic acidosis E87.2
--- NOTE | 2021-10-02 10:44 | PC.NURSE ---
Discharge instructions given to patient, prescription at bedside, IV removed. Patient verbalized he doesn't plan on stopping his tresiba and doesn't plan on taken detimir. He will talk to his primary doctor about it.
== END 2021-10-02 10:20 | disposition home or self-care (01) ==
LOC: ER 09:38 → ICU 13:13
PROVIDERS: Family Medicine; Admitting Provider Internal Medicine; Emergency Provider Family Medicine; PCP Family Medicine; Visit Provider Internal Medicine
DX: E11.00 Type 2 diabetes mellitus with hyperosmolarity without nonketotic hyperglycemic-hyperosmolar coma (NKHHC) (principal); E87.2 Acidosis
CPT/HCPCS: 36415; 36416; 36600; 71045; 80048; 80051; 80053; 81001; 82009; 82330; 82805; 82962; 83735; 84100; 84443; 85025; 93005; 96361; 96365; 96366; 96367; 96372; 96375; 99285; G0378; J1815; J2405; J3475; J3490; J7030; J7050

== ENCOUNTER → 2021-10-27 10:42 | Outpatient (BNVA) | payer OTHER, SELFPAY | PROVIDERS: PCP Family Medicine; Visit Provider Family Medicine | DX: J32.9 Chronic sinusitis, unspecified (principal); Z20.822 Contact with and (suspected) exposure to COVID-19 | CPT/HCPCS: 87426 ==

== ENCOUNTER → 2021-11-02 11:50 | Outpatient (BNVA) | payer OTHER, SELFPAY | PROVIDERS: PCP Family Medicine; Visit Provider Family Medicine | DX: E11.9 Type 2 diabetes mellitus without complications (principal) | CPT/HCPCS: 83036 ==

== ENCOUNTER 2022-10-19 06:12 | Observation (INO) | payer OTHER, SELFPAY ==
[2022-10-19] VITALS (170 sets, daily range): BP systolic 89–114; BP diastolic 52–77; PULSE 71–132; RESP 8–37; TEMP 36.4–36.9; O2SAT 90–100; BMI 19.6
--- NOTE | 2022-10-19 06:19 | XRR_ITS ---
PROCEDURE INFORMATION: Exam: XR Chest Exam date and time: 10/19/2022 6:36 AM Age: 27 years old Clinical indication: Dyspnea/cough TECHNIQUE: Imaging protocol: Radiologic exam of the chest. Views: 1 view. COMPARISON: CR XR chest 1V portable [id number] 10/01/2021 6:45 AM FINDINGS: Lungs: No focal peripheral lung consolidation, air bronchogram formation, or silhouette sign. Pleural spaces: No pleural effusion or pneumothorax. Heart/Mediastinum: The cardiac silhouette is not enlarged. The mediastinal contours are normal. Bones/joints: Mild curvature of the lower thoracic spine convex to the left. XR/XR chest 1V portable [id number] IMPRESSION: No sign of pneumonia.
--- NOTE | 2022-10-19 06:28 | ED_ITS ---
HPI - General Adult General: Chief complaint: General Medical Stated complaint: possible DKA Time Seen by Provider: 10/19/22 06:17 Source: patient Mode of arrival: ambulatory History of Present Illness: 27-year-old male who is known type I diabetic presents emergency room with report of elevated blood sugars and talking to them he is not really sure the last time he used either his long-acting or short acting insulin his blood sugars were simply reading high at home. He also read high at the bedside. It is significant other is with him reports his blood sugars yesterday were in the 4-500 range. A week ago he was treated for pneumonia he had a follow-up and was told that it appeared to have cleared he still has a nonproductive cough no fever. Denies any abdominal pain or chest pain. No dysuria urgency or frequency. Onset (ago): hour(s) Relieving factors: none Exacerbating factors: none Associated symptoms: Reports malaise, nausea and other; Deny chest pain, confusion, cough, diaphoresis, decreased appetite, dyspnea, fevers/chills, headache(s), rash, palpitations, seizures, short of breath, syncope, vomiting or weakness Review of Systems Const: Reports: malaise; Denies: fever(s), chills or diaphoresis ENMT: Denies: throat pain, ear or mastoid pain, nasal discharge or nasal congestion Card: Denies: chest pain, palpitations or syncope Resp: Reports: non-productive cough; Denies: dyspnea GI: Reports: nausea; Denies: abdominal pain or vomiting : Denies: flank pain, dysuria, urinary frequency or urinary urgency Skin/Breast: Denies: rash Neuro: Denies: headache(s) or confusion PFSH ED PFSH: Medical History History of pericarditis (~2016) occurred after appendectomy Nicotine dependence, chewing tobacco, with unspecified nicotine-induced disorders Type 1 diabetes mellitus Type I diabetes mellitus (~2010) 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 Mildly depressed EF at 50% with mild inferior wall hypokinesis. History of tonsillectomy Family History Other Diabetes Social History Smoking and tobacco status: never smoked Alcohol intake: current Alcohol intake frequency: holidays/special occasions only Substance/Drug Use: never Current occupational status: employed Physical Exam Const: GENERAL APPEARANCE: cooperative and comfortable ORIENTATION/CONSCIOUSNESS: Yes awake, Yes oriented to person, Yes oriented to place and Yes oriented to time HENMT: COMMON NORMALS: normocephalic, atraumatic and hearing grossly normal bilaterally HEAD & SCALP: normocephalic and atraumatic Resp: COMMON NORMALS: normal respiratory effort, No retractions, No use of accessory muscles and clear to auscultation bilaterally AUSCULTATION: clear to auscultation bilaterally Cardio: COMMON NORMALS: regular rate, regular rhythm and No murmurs present (Cardio) RATE: regular rate RHYTHM: regular rhythm GI: COMMON NORMALS: Soft to palpation and No hepatosplenomegaly present AUSCULTATION: Yes normoactive bowel sounds PALPATION: Yes Soft to palpation, No Tenderness to palpation present (GI), No Guarding due to palpation present (GI) and Yes No hepatosplenomegaly present Extremity: COMMON NORMALS: normal to inspection, capillary refill normal, no clubbing, cyanosis or edema, no calf tenderness and no pedal edema Neuro: SENSORIUM/ORIENTATION: Yes oriented to person, Yes oriented to place and Yes oriented to time Skin: COMMON NORMALS: no rashes or lesions noted GENERAL SKIN EXAM: no rashes or lesions noted Course Vital Signs: Vital signs: Vital Signs Temperature 97.9 F 10/19/22 06:18 Pulse Rate 132 H 10/19/22 06:18 Respiratory Rate 16 10/19/22 06:18 Pulse Oximetry 98 10/19/22 06:18 Oxygen Delivery Me thod Room Air 10/19/22 06:18 MDM - General Adult Medical Decision Making DKA. Fluids started as well as insulin bolus and will order also order insulin drip. Patient is unsure the last time he took any of his insulin. Discussed Dr. Gayle will admit to ICU Medical Records I reviewed the patient's medical records. Lab Data I reviewed the patient's lab results. 10/19/22 06:33 10/19/22 06:33 Laboratory Results WBC 17.58 10^3/uL (3.29-11.43) H 10/19/22 06:33 RBC 5.55 10^6/uL (3.85-5.65) 10/19/22 06:33 Hgb 17.10 g/dL (11.27-16.99) H 10/19/22 06:33 Hct 49.1 % (37-53) 10/19/22 06:33 MCV 88.5 fl (82-101) 10/19/22 06:33 MCH 30.8 pg (27-33) 10/19/22 06:33 MCHC 34.8 g/dL (30-55) 10/19/22 06:33 RDW 11.7 % (12.1-15.1) L 10/19/22 06:33 Plt Count 348 10^3/cmm (157-399) 10/19/22 06:33 MPV 9.9 fL (7.4-10.4) 10/19/22 06:33 Neut % (Auto) 80.1 % 10/19/22 06:33 Lymph % (Auto) 11.1 % 10/19/22 06:33 Citrus % (Auto) 6.4 % 10/19/22 06:33 Eos % (Auto) 0.9 % 10/19/22 06:33 Baso % (Auto) 0.6 % 10/19/22 06:33 Neut # (Auto) 14.07 10^3/uL (1.8-7.7) H 10/19/22 06:33 Lymph # (Auto) 2.0 10^3/uL (0.8-4.8) 10/19/22 06:33 Citrus # (Auto) 1.1 10^3/uL (0.2-0.9) H 10/19/22 06:33 Eos # (Auto) 0.2 10^3/uL (0.0-0.8) 10/19/22 06:33 Baso # (Auto) 0.1 10^3/uL (0.0-0.1) 10/19/22 06:33 Nucleated RBC % (auto) 0 % 10/19/22 06:33 Nucleated RBCs # 0.0 /100WBC 10/19/22 06:33 Specimen Type Mixedvenous 10/19/22 06:25 Sample Site Brachial, left 10/19/22 06:25 ABG pH 7.15 (7.35-7.45) L* 10/19/22 06:25 ABG pCO2 33.1 mmHg (35-45) L 10/19/22 06:25 ABG pO2 41.1 mmHg (80.0-100.0) L 10/19/22 06:25 ABG HCO3 11.5 mmol/L (22-26) L 10/19/22 06:25 ABG O2 Saturation 67.1 10/19/22 06:25 ABG Base Excess -16.3 mmol/L (-2.0-2.0) L 10/19/22 06:25 Gino Test N/a 10/19/22 06:25 A-a O2 Gradient 8.8 mmHg (5-10) 10/19/22 06:25 Hematocrit 53.5 % (42-52) H 10/19/22 06:25 Hgb O2 Saturation 66.0 % (95-100) L 10/19/22 06:25 Carboxyhemoglobin 1.2 %THgb (0.4-20.1) 10/19/22 06:25 Methemoglobin 0.4 % (0.4-1.5) 10/19/22 06:25 Total Hemoglobin 17.4 g/dL (14-18) 10/19/22 06:25 Sodium 131.0 mmol/L (131-143) 10/19/22 06:25 Potassium 5.0 mmol/L (3.5-5.0) 10/19/22 06:25 Glucose 590.0 mg/dL (70-115) H 10/19/22 06:25 Ionized Calcium 1.4 mmol/L (1.1-1.4) 10/19/22 06:25 O2 Delivery Device None 10/19/22 06:25 FiO2 21.0 % 10/19/22 06:25 Grinder Needle Tip ID Alewe 10/19/22 06:25 Sodium 129 mmol/L (136-145) L 10/19/22 06:33 Potassium 5.3 mmol/L (3.5-5.1) H 10/19/22 06:33 Chloride 89 mmol/L (98-107) L 10/19/22 06:33 Carbon Dioxide 12 mmol/L (22-29) L 10/19/22 06:33 Anion Gap 33.3 (5-19) H 10/19/22 06:33 BUN 16 mg/dL (6-20) 10/19/22 06:33 Creatinine 1.0 mg/dL (0.7-1.2) 10/19/22 06:33 GFR Calculation 88.3 mL/min (90-130) L 10/19/22 06:33 Glucose 598 mg/dL (65-115) H* 10/19/22 06:33 Calculated Osmolality 297 mOsm/kg (285-295) H 10/19/22 06:33 Calcium 10.6 mg/dL (8.5-10.5) H 10/19/22 06:33 Phosphorus 4.7 mg/dL (2.5-4.5) H 10/19/22 06:33 Magnesium 2.0 mg/dL (1.7-2.3) 10/19/22 06:33 Total Bilirubin 0.5 mg/dL (0.15-1.2) 10/19/22 06:33 AST 16 U/L (0-40) 10/19/22 06:33 ALT 23 U/L (0-41) 10/19/22 06:33 Alkaline Phosphatase 188 U/L (40-130) H 10/19/22 06:33 Total Protein 8.7 g/dL (6.6-8.7) 10/19/22 06:33 Albumin 4.8 g/dL (3.5-5.2) 10/19/22 06:33 Globulin 3.9 g/dL (1.3-4.6) 10/19/22 06:33 Lipase 10 U/L (13-60) L 10/19/22 06:33 Serum Ketones Positive (Negative) H 10/19/22 06:33 Discharge Plan Discharge Patient Disposition: Admitted As Inpatient Clinical Impression: Diabetic ketoacidosis associated with type 1 diabetes mellitus, Diabetes mellitus type 1, uncontrolled, insulin dependent Condition: Stable Coding Level of Care Code ED [place] Strip Inspector for Mehdi Nelson
[2022-10-19] MEDS: ondansetron 2 mg/ML SDV 2 mL 4 MG IVP (06:31)
[2022-10-19] MEDS: sodium chloride 0.9% 1,000 ML 999 ML IV (06:36)
[2022-10-19 06:37] LABS: ABG PCO2 33.1 mmHg (35-45); Alveolar-Arterial Oxygen Gradi 8.8 mmHg (5-10); Arterial Blood Gas Hematocrit 53.5 % (42-52); Base Excess ABG -16.3 mmol/L (-2.0-2.0); Blood Gas Sample Site Brachial, left; Carboxyhemoglobin 1.2 %THgb (0.4-20.1); HCO3 ABG 11.5 mmol/L (22-26); Ionized Calcium Level - ABG 1.4 mmol/L (1.1-1.4); Methemoglobin 0.4 % (0.4-1.5); Oxygen Saturation ABG 67.1; PO2 ABG 41.1 mmHg (80.0-100.0); Total Hemoglobin 17.4 g/dL (14-18)
[2022-10-19 06:38] LABS: Blood Gas Sample Type MixedVenous
[2022-10-19 06:39] LABS: ABG PH Result 7.15 (7.35-7.45)
[2022-10-19 06:43] LABS: Basophils # 0.1 10^3/uL (0.0-0.1); Basophils % 0.6 %; Eosinophils # 0.2 10^3/uL (0.0-0.8); Eosinophils % 0.9 %; Hematocrit 49.1 % (37-53); Lymphocytes % 11.1 %; Mean Corpuscular HGB Conc 34.8 g/dL (30-55); Mean Corpuscular Hemoglobin 30.8 pg (27-33); Mean Corpuscular Volume 88.5 fl (82-101); Mean Platelet Volume 9.9 fL (7.4-10.4); Monocytes # 1.1 10^3/uL (0.2-0.9); Monocytes % 6.4 %; Neutrophils # 14.07 10^3/uL (1.8-7.7); Neutrophils % 80.1 %; Nucleated Red Blood Cells % 0 %; Platelet Count 348 10^3/cmm (157-399); Red Blood Count 5.55 10^6/uL (3.85-5.65); Red Cell Distribution Width 11.7 % (12.1-15.1); White Blood Count 17.58 10^3/uL (3.29-11.43)
[2022-10-19 06:48] LABS: Ketone (Acetest) Serum Positive (Negative)
[2022-10-19] MEDS: insulin regular-human 100 units/1 mL 10 UNIT IVP (06:53)
[2022-10-19 07:00] LABS: Alanine Aminotransferase 23 U/L (0-41); Albumin Level 4.8 g/dL (3.5-5.2); Alkaline Phosphatase 188 U/L (40-130); Anion Gap 33.3 (5-19); Aspartate Amino Transferase 16 U/L (0-40); Blood Urea Nitrogen 16 mg/dL (6-20); Calcium 10.6 mg/dL (8.5-10.5); Carbon Dioxide 12 mmol/L (22-29); Chloride 89 mmol/L (98-107); Globulin 3.9 g/dL (1.3-4.6); Glomerular Filtration Rate 88.3 mL/min (90-130); Lipase 10 U/L (13-60); Osmolality Calculated 297 mOsm/kg (285-295); Potassium 5.3 mmol/L (3.5-5.1); Sodium 129 mmol/L (136-145); Total Bilirubin 0.5 mg/dL (0.15-1.2); Total Protein 8.7 g/dL (6.6-8.7)
[2022-10-19 07:01] LABS: Phosphorus 4.7 mg/dL (2.5-4.5)
[2022-10-19 07:04] LABS: Glucose 598 mg/dL (65-115)
--- NOTE | 2022-10-19 07:15 | ECG_ITS ---
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 Measurements Intervals [place] Rate: 101 P: 86 DC: 162 QRS: 93 QRSD: 91 T: 31 QT: 345 QTc: 449 Interpretive Statements SINUS TACHYCARDIA BORDERLINE RIGHT AXIS DEVIATION [QRS AXIS > 90] NONSPECIFIC ST & T-WAVE ABNORMALITY Compared to ECG 10/01/2021 07:46:46 T-wave abnormality now present Sinus rhythm no longer present Electronically Signed On 10-19-2022 12:05:01 CDT by Kota Ledezma M.D. [id number]
--- NOTE | 2022-10-19 07:46 | PM.HP ---
Providers/Chief Complaint Admitting Physician: Abner Gayle MD Primary Care Provider: Lonny Reynolds DO Chief Complaint: possible DKA History of Present Illness Kojo Thomas is a 27 year old male presenting to the emergency part with high sugar, nausea and vomiting. This been going on at least a day. He is not sure when he took his insulin last but believes he took some yesterday. Was recently on an antibiotic for pneumonia, after being diagnosed last week. States sugars have been higher since that time. Review of Systems General: Reports: 10 or more systems reviewed and unremarkable except in HPI and below Card: Denies: chest pain Resp: Reports: non-productive cough; Denies: dyspnea or productive cough GI: Reports: nausea and vomiting; Denies: abdominal pain, hematochezia or melena Medications/Allergies Home Medications Medication Instructions Recorded Confirmed Last Taken Type acetaminophen 500 mg tablet 500 - 1,000 mg PO Q6H PRN Pain 12/31/20 10/19/22 Unknown History insulin lispro 100 unit/mL See Rx Instructions .Route .COMPLEX 10/01/21 10/19/22 09/27/21 History subcutaneous cartridge (Humalog U-100 Insulin) insulin glargine U-300 conc 300 76 unit (0.2533 mL) SUBCUT DAILY 11/02/21 10/19/22 Unknown Rx unit/mL (3 mL) subcutaneous pen #3 mL (Toujeo Max U-300 SoloStar) Allergies Allergy/AdvReac Type Severity Reaction Status Date / Time No Known Allergies Allergy Verified 10/14/22 11:40 PFSH Acute PFSH: Medical History History of pericarditis (~2016) occurred after appendectomy Nicotine dependence, chewing tobacco, with unspecified nicotine-induced disorders Type 1 diabetes mellitus Type I diabetes mellitus (~2010) 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 Mildly depressed EF at 50% with mild inferior wall hypokinesis. History of tonsillectomy Family History Other Diabetes Social History Smoking and tobacco status: never smoked Alcohol intake: current Alcohol intake frequency: holidays/special occasions only Substance/Drug Use: never Current occupational status: employed Vitals/I&O/Wt Last Vital Signs Temp 97.9 F 10/19/22 06:18 Pulse 132 H 10/19/22 06:18 Resp 16 10/19/22 06:18 Pulse Ox 98 10/19/22 06:18 O2 Del Method Room Air 10/19/22 06:18 Weight last 48 hrs Weight 69.4 kg Physical Exam Narrative: General exam no distress HEENT: Atraumatic and normocephalic. Oropharynx with dry mucous membranes Neck is supple no lymphadenopathy thyromegaly Cardiovascular regular rate and rhythm, no murmur Lungs clear no wheezing or crackles Abdomen soft with positive bowel sounds. No obvious organomegaly. exam is deferred Extremities no cyanosis clubbing or edema, cap refill brisk Skin no rash Neuro no focal deficits. Data 10/19/22 06:33 10/19/22 06:33 Other Labs: ABG demonstrates pH 7.15, PCO2 33, PO2 41. This was a mixed venous gas according to documentation. Calcium 10.6, phosphorus 4.7, magnesium 2.0. LFTs normal with exception of alk phos of 188 Lipase 10 Albumin 4.8 Serum ketones positive Urinalysis pending Chest x-ray per my read no infiltrate EKG per my read demonstrates sinus tachycardia, right axis deviation, nonspecific ST-T wave changes A&P Assessment and plan (1) Diabetic ketoacidosis associated with type 1 diabetes mellitus: Patient presents with DKA with significant acidosis. He has been rehydrated in the emergency department as appropriate with fluid boluses An insulin bolus was given, and an insulin drip is being started. Serial electrolytes Change fluids to D5 when sugar is less than 250 Continue to watch anion gap closely, and when this closes consider initiation of long-acting insulin. Watch magnesium and phosphorus Check TSH CBC, BMP in the morning. I suspect his leukocytosis is secondary to demargination from stress. (2) Hyperkalemia: Hyperkalemia is present, secondary to acidosis Continue to monitor closely with fluids, expect this to drop and needs supplemented Plan Other medical problems as outlined in past medical history Full code Low risk for DVT, no prophylaxis needed Attestations Medical Necessity Statement*: Will need less than 2 midnights stay for evaluation and treatment of DKA Diagnoses Diabetic ketoacidosis associated with type 1 diabetes mellitus E10.10 Hyperkalemia E87.5 Time Spent (min) 41
[2022-10-19 08:00] LABS: Add Urine Microscopic? NO; Charge for UA Resulting for Rev
[2022-10-19 08:08] LABS: Glucose Point of Care 376 mg/dL (70-110)
[2022-10-19 08:10] LABS: Bilirubin Urine Neg (Negative); Blood Urine Neg (Negative); Glucose Urine UA 4+ (Normal); Ketones Urine 3+ (Negative); Leukocyte Esterase Urine Negative (Negative); Nitrate Urine Negative (Negative); Protein Urine Neg (Negative); Urine Appearance Clear (CLEAR); Urine Color Straw (Yellow); Urobilinogen Urine Norm (Negative); pH Urine 5 (5-7)
[2022-10-19 08:16] LABS: Thyroid Stimulating Hormone 0.47 uIU/mL (0.27-4.20)
[2022-10-19] MEDS: insulin regular-human 250 UNIT in sodium chloride 0.9% 250 ML 6.57 UNIT IV (08:42)
[2022-10-19] MEDS: sodium chloride 0.9% 1,000 ML 200 ML IV (08:45)
[2022-10-19 09:18] LABS: Glucose Point of Care 401 mg/dL (70-110)
[2022-10-19] MEDS: pantoprazole 40 mg SDV IVP (09:41)
[2022-10-19 10:19] LABS: Glucose Point of Care 276 mg/dL (70-110)
--- NOTE | 2022-10-19 10:29 | PC.NURSE ---
REceived patient form ER staff at 0837. BP: 107/77, HR: 92, SPO2: 97% on room air. Patient is alert and oriented to perosn, place, time and situation walked [facility] ER gurney to ICU bed. POC glucose upon arrival to ICU is 401, insulin started at 6.5 units/hr per protocol.
[2022-10-19 11:08] LABS: Anion Gap 21.5 (5-19); Blood Urea Nitrogen 13 mg/dL (6-20); Calcium 8.7 mg/dL (8.5-10.5); Carbon Dioxide 14 mmol/L (22-29); Chloride 103 mmol/L (98-107); Creatinine Clr Calc Pharmacy 148.5396; Glomerular Filtration Rate 114.3 mL/min (90-130); Glucose 267 mg/dL (65-115); Osmolality Calculated 287 mOsm/kg (285-295); Potassium 4.5 mmol/L (3.5-5.1); Sodium 134 mmol/L (136-145)
[2022-10-19 11:17] LABS: Glucose Point of Care 237 mg/dL (70-110)
[2022-10-19 12:19] LABS: Glucose Point of Care 168 mg/dL (70-110)
[2022-10-19] MEDS: D5-NS 0.45% + KCL 20 mEq 20 MEQ/1,000 ML BAG 125 MEQ IV (12:31)
[2022-10-19 13:32] LABS: Glucose Point of Care 197 mg/dL (70-110)
[2022-10-19 14:35] LABS: Glucose Point of Care 188 mg/dL (70-110)
[2022-10-19 14:47] LABS: Blood Urea Nitrogen 10 mg/dL (6-20); Calcium 8.9 mg/dL (8.5-10.5); Carbon Dioxide 20 mmol/L (22-29); Chloride 103 mmol/L (98-107); Glomerular Filtration Rate 133.3 mL/min (90-130); Glucose 202 mg/dL (65-115); Magnesium 1.7 mg/dL (1.7-2.3); Osmolality Calculated 281 mOsm/kg (285-295); Phosphorus 3.4 mg/dL (2.5-4.5); Sodium 133 mmol/L (136-145)
[2022-10-19] MEDS: sodium chloride 0.45% 1,000 ML 100 ML IV (15:03)
[2022-10-19] MEDS: insulin glargine 100 units/1 mL 20 UNIT SUBCUT ×2 (15:04→20:53)
[2022-10-19 15:17] LABS: Glucose Point of Care 186 mg/dL (70-110)
[2022-10-19 16:22] LABS: Glucose Point of Care 227 mg/dL (70-110)
[2022-10-19] MEDS: insulin lispro 100 unit/1 mL SUBCUT ×2 (17:14→20:53)
--- NOTE | 2022-10-19 17:39 | PC.NURSE ---
Shift Summary: Uneventful shift. Patient rested in bed throughout the day. Transitioned from Insulin drip to Subq insulin.
[2022-10-19 20:10] LABS: Anion Gap 14.2 (5-19); Blood Urea Nitrogen 11 mg/dL (6-20); Calcium 8.6 mg/dL (8.5-10.5); Carbon Dioxide 21 mmol/L (22-29); Chloride 102 mmol/L (98-107); Creatinine Clr Calc Pharmacy 148.5396; Glomerular Filtration Rate 114.3 mL/min (90-130); Glucose 269 mg/dL (65-115); Magnesium 1.7 mg/dL (1.7-2.3); Osmolality Calculated 285 mOsm/kg (285-295); Potassium 4.2 mmol/L (3.5-5.1); Sodium 133 mmol/L (136-145)
[2022-10-19 20:49] LABS: Glucose Point of Care 290 mg/dL (70-110)
[2022-10-20] VITALS (102 sets, daily range): BP systolic 92–109; BP diastolic 56–70; PULSE 65–88; RESP 0–24; TEMP 36.7; O2SAT 93–98
[2022-10-20] MEDS: sodium chloride 0.45% 1,000 ML 100 ML IV (01:36)
[2022-10-20 03:42] LABS: Glucose Point of Care > 600 mg/dL (70-110)
[2022-10-20 05:07] LABS: Basophils # 0.1 10^3/uL (0.0-0.1); Basophils % 0.5 %; Eosinophils # 0.3 10^3/uL (0.0-0.8); Eosinophils % 3.3 %; Hematocrit 37.8 % (37-53); Lymphocytes # 2.2 10^3/uL (0.8-4.8); Lymphocytes % 22.2 %; Mean Corpuscular HGB Conc 34.4 g/dL (30-55); Mean Corpuscular Hemoglobin 29.7 pg (27-33); Mean Corpuscular Volume 86.5 fl (82-101); Mean Platelet Volume 9.6 fL (7.4-10.4); Monocytes # 0.7 10^3/uL (0.2-0.9); Monocytes % 7.6 %; Neutrophils # 6.46 10^3/uL (1.8-7.7); Neutrophils % 65.9 %; Nucleated Red Blood Cells % 0 %; Platelet Count 283 10^3/cmm (157-399); Red Blood Count 4.37 10^6/uL (3.85-5.65); Red Cell Distribution Width 11.9 % (12.1-15.1)
[2022-10-20 05:31] LABS: Alanine Aminotransferase 12 U/L (0-41); Albumin Level 3.5 g/dL (3.5-5.2); Alkaline Phosphatase 95 U/L (40-130); Anion Gap 13.1 (5-19); Aspartate Amino Transferase 11 U/L (0-40); Blood Urea Nitrogen 10 mg/dL (6-20); Calcium 8.9 mg/dL (8.5-10.5); Carbon Dioxide 23 mmol/L (22-29); Chloride 104 mmol/L (98-107); Globulin 2.4 g/dL (1.3-4.6); Glomerular Filtration Rate 159.3 mL/min (90-130); Glucose 259 mg/dL (65-115); Magnesium 1.5 mg/dL (1.7-2.3); Osmolality Calculated 290 mOsm/kg (285-295); Potassium 4.1 mmol/L (3.5-5.1); Sodium 136 mmol/L (136-145); Total Bilirubin 0.4 mg/dL (0.15-1.2); Total Protein 5.9 g/dL (6.6-8.7)
[2022-10-20 07:47] LABS: Glucose Point of Care 206 mg/dL (70-110)
[2022-10-20] MEDS: insulin lispro 100 unit/1 mL SUBCUT (08:07)
[2022-10-20] MEDS: pantoprazole 40 mg SDV IVP (08:07)
[2022-10-20] MEDS: insulin glargine 100 units/1 mL 20 UNIT SUBCUT (08:07)
--- NOTE | 2022-10-20 08:26 | PM.DCS ---
Discharge Providers Date of Admission: 10/19/22 08:03 Date of Discharge: October 20, 2022 Attending Provider at Admission: Abner Gayle MD Attending Provider at Discharge: Abner Gayle MD Primary Care Provider: Lonny Reynolds DO Diagnoses at Discharge Discharge Diagnosis (1) Diabetic ketoacidosis associated with type 1 diabetes mellitus: Status: Acute (2) Hyperkalemia: Status: Acute Reason for Visit Reason for Visit: possible DKA Hospital Course Hospital Course Kojo is a 27-year-old male with type 1 diabetes who presented to the hospital with nausea and vomiting and was found to have DKA. He reported his sugars were running higher than usual as he had had pneumonia the week before he finished some antibiotics. It also missed some doses of insulin. He was started on an insulin drip after being rehydrated. Electrolytes were followed closely. After his anion gap reversed, he was transitioned to long-acting insulin. He was stable, with no significant anion gap on October 20 and it was thought he could be discharged home. He was given an opportunity ask questions, and agreed with the plan. I discussed with him the need to not miss any insulin. He had no evidence of pneumonia on chest x-ray on this admission. Anion gap 13 at discharge. Physical Exam Narrative: General exam no distress Neck is supple Cardiovascular regular rate and rhythm without murmur Lungs clear Abdomen is soft with positive bowel sounds Extremities no cyanosis clubbing edema Discharge Data Studies Completed and Pending Completed Studies During Hospitalization Category Date Time Status XR chest 1V portable [id number] Stat Exams 10/19/22 06:19 Completed Radiology Impressions Chest X-Ray 10/19/22 06:19 IMPRESSION: No sign of pneumonia. Laboratory Results WBC 9.80 10^3/uL (3.29-11.43) 10/20/22 04:12 RBC 4.37 10^6/uL (3.85-5.65) 10/20/22 04:12 Hgb 13.00 g/dL (11.27-16.99) 10/20/22 04:12 Hct 37.8 % (37-53) 10/20/22 04:12 MCV 86.5 fl (82-101) 10/20/22 04:12 MCH 29.7 pg (27-33) 10/20/22 04:12 MCHC 34.4 g/dL (30-55) 10/20/22 04:12 RDW 11.9 % (12.1-15.1) L 10/20/22 04:12 Plt Count 283 10^3/cmm (157-399) 10/20/22 04:12 MPV 9.6 fL (7.4-10.4) 10/20/22 04:12 Neut % (Auto) 65.9 % 10/20/22 04:12 Lymph % (Auto) 22.2 % 10/20/22 04:12 [place] % (Auto) 7.6 % 10/20/22 04:12 Eos % (Auto) 3.3 % 10/20/22 04:12 Baso % (Auto) 0.5 % 10/20/22 04:12 Neut # (Auto) 6.46 10^3/uL (1.8-7.7) 10/20/22 04:12 Lymph # (Auto) 2.2 10^3/uL (0.8-4.8) 10/20/22 04:12 [place] # (Auto) 0.7 10^3/uL (0.2-0.9) 10/20/22 04:12 Eos # (Auto) 0.3 10^3/uL (0.0-0.8) 10/20/22 04:12 Baso # (Auto) 0.1 10^3/uL (0.0-0.1) 10/20/22 04:12 Nucleated RBC % (auto) 0 % 10/20/22 04:12 Nucleated RBCs # 0.0 /100WBC 10/20/22 04:12 Specimen Type Mixedvenous 10/19/22 06:25 Sample Site Brachial, left 10/19/22 06:25 ABG pH 7.15 (7.35-7.45) L* 10/19/22 06:25 ABG pCO2 33.1 mmHg (35-45) L 10/19/22 06:25 ABG pO2 41.1 mmHg (80.0-100.0) L 10/19/22 06:25 ABG HCO3 11.5 mmol/L (22-26) L 10/19/22 06:25 ABG O2 Saturation 67.1 10/19/22 06:25 ABG Base Excess -16.3 mmol/L (-2.0-2.0) L 10/19/22 06:25 Gino Test N/a 10/19/22 06:25 A-a O2 Gradient 8.8 mmHg (5-10) 10/19/22 06:25 Hematocrit 53.5 % (42-52) H 10/19/22 06:25 Hgb O2 Saturation 66.0 % (95-100) L 10/19/22 06:25 Carboxyhemoglobin 1.2 %THgb (0.4-20.1) 10/19/22 06:25 Methemoglobin 0.4 % (0.4-1.5) 10/19/22 06:25 Total Hemoglobin 17.4 g/dL (14-18) 10/19/22 06:25 Sodium 131.0 mmol/L (131-143) 10/19/22 06:25 Potassium 5.0 mmol/L (3.5-5.0) 10/19/22 06:25 Glucose 590.0 mg/dL (70-115) H 10/19/22 06:25 Ionized Calcium 1.4 mmol/L (1.1-1.4) 10/19/22 06:25 O2 Delivery Device None 10/19/22 06:25 FiO2 21.0 % 10/19/22 06:25 Grocery Sacker ID [place] 10/19/22 06:25 Sodium 136 mmol/L (136-145) 10/20/22 04:12 Potassium 4.1 mmol/L (3.5-5.1) 10/20/22 04:12 Chloride 104 mmol/L (98-107) 10/20/22 04:12 Carbon Dioxide 23 mmol/L (22-29) 10/20/22 04:12 Anion Gap 13.1 (5-19) 10/20/22 04:12 BUN 10 mg/dL (6-20) 10/20/22 04:12 Creatinine 0.6 mg/dL (0.7-1.2) L 10/20/22 04:12 GFR Calculation 159.3 mL/min (90-130) H 10/20/22 04:12 Glucose 259 mg/dL (65-115) H 10/20/22 04:12 POC Glucose 206 mg/dL (70-110) H 10/20/22 07:45 Calculated Osmolality 290 mOsm/kg (285-295) 10/20/22 04:12 Calcium 8.9 mg/dL (8.5-10.5) 10/20/22 04:12 Phosphorus 3.4 mg/dL (2.5-4.5) 10/19/22 14:10 Magnesium 1.5 mg/dL (1.7-2.3) L 10/20/22 04:12 Total Bilirubin 0.4 mg/dL (0.15-1.2) 10/20/22 04:12 AST 11 U/L (0-40) 10/20/22 04:12 ALT 12 U/L (0-41) 10/20/22 04:12 Alkaline Phosphatase 95 U/L (40-130) 10/20/22 04:12 Total Protein 5.9 g/dL (6.6-8.7) L D 10/20/22 04:12 Albumin 3.5 g/dL (3.5-5.2) 10/20/22 04:12 Globulin 2.4 g/dL (1.3-4.6) 10/20/22 04:12 Lipase 10 U/L (13-60) L 10/19/22 06:33 TSH 0.47 uIU/mL (0.27-4.20) 10/19/22 06:33 Urine Color Straw (Yellow) 10/19/22 07:49 Urine Appearance Clear (CLEAR) 10/19/22 07:49 Urine pH 5 (5-7) 10/19/22 07:49 Ur Specific [place] 1.020 (1.005-1.030) 10/19/22 07:49 Urine Protein Neg (Negative) 10/19/22 07:49 Urine Glucose (UA) 4+ (Normal) H 10/19/22 07:49 Urine Ketones 3+ (Negative) H 10/19/22 07:49 Urine Blood Neg (Negative) 10/19/22 07:49 Urine Nitrate Negative (Negative) 10/19/22 07:49 Urine Bilirubin Neg (Negative) 10/19/22 07:49 Urine Urobilinogen Norm mg/dL (Negative) 10/19/22 07:49 Ur Leukocyte Esterase Negative (Negative) 10/19/22 07:49 Serum Ketones Positive (Negative) H 10/19/22 06:33 Vitals Last Vital Signs Temp 98.1 F 10/19/22 16:20 Pulse 85 10/20/22 08:15 Resp 12 10/20/22 08:15 BP 103/63 10/20/22 08:15 Pulse Ox 96 10/20/22 08:15 O2 Del Method Room Air 10/19/22 17:50 Discharge Plan Discharge Patient Disposition: Home Condition: Stable Prescriptions: Continued Toujeo Max U-300 SoloStar 300 unit/mL (3 mL) insulin pen 76 unit SUBCUT DAILY Qty: 3 0RF acetaminophen 500 mg Tablet 500 - 1,000 mg PO Q6H PRN (Reason: Pain) Humalog U-100 Insulin 100 unit/mL Cartridge See Rx Instructions .ROUTE .COMPLEX Rx Instructions: sliding scale with meals Discharge Orders: Discharge Order (Routine); Ordered 10/20/22 Ordered By: Abner Gayle Referrals: Lonny Reynolds DO [Primary Care Provider] - 4-7 days Discharge Diet: Diabetic Discharge Activity: Increase activity as tolerated Patient Instructions: Opioid Safety Activity Restrictions/Additional Instructions: Arrange follow-up with your cuprous chloride operator. See your primary care provider 3 to 5 days. Take all medicine as prescribed. Return for any concerns. Discharge Attestations Time Spent in Discharge Care*: greater than 30 min Quality Metrics Clinical Quality Measures [ No reported AMI, CVA or VTE this stay] Coding Level of Care Code 30678 Total time (in minutes) for Discharge: 32 Diagnoses Diabetic ketoacidosis associated with type 1 diabetes mellitus E10.10 Hyperkalemia E87.5
[2022-10-20] MEDS: magnesium oxide 400 mg tablet PO (09:06)
--- NOTE | 2022-10-20 09:09 | PC.NURSE ---
Patient received discharge orders. All information provided to patient who verbalized understanding. All IV's removed. Patient will be taken out via w/c to main exit.
--- NOTE | 2022-10-20 09:20 | PC.NURSE ---
Patient taken to ER exit at 0915.
== END 2022-10-20 09:15 | disposition home or self-care (01) ==
LOC: ER 07:30 → ICU 08:03
PROVIDERS: Admitting Provider Internal Medicine; Emergency Provider Family Medicine; PCP Family Medicine; Visit Provider Internal Medicine
DX: E10.10 Type 1 diabetes mellitus with ketoacidosis without coma (principal); E87.5 Hyperkalemia; Z79.4 Long term (current) use of insulin
CPT/HCPCS: 36415; 36416; 36600; 71045; 80048; 80051; 80053; 81003; 82009; 82330; 82805; 82962; 83690; 83735; 84100; 84443; 85025; 93005; 96365; 96366; 96367; 96372; 96375; 96376; 99285; C9113; G0378; J1815; J2405; J7030; J7050

== ENCOUNTER → 2023-04-10 17:23 | Outpatient (BNVA) | payer OTHER, SELFPAY | PROVIDERS: PCP Family Medicine; Visit Provider Nurse Practitioner | DX: J02.9 Acute pharyngitis, unspecified (principal); R09.81 Nasal congestion | CPT/HCPCS: 87400; 87880 ==

== ENCOUNTER 2023-04-12 13:04 | Inpatient (IN) | payer OTHER, SELFPAY ==
[2023-04-12] VITALS (68 sets, daily range): BP systolic 104–154; BP diastolic 60–79; PULSE 85–130; RESP 13–37; TEMP 33.8–36.6; O2SAT 95–100; BMI 19.8; BMI 18.8
[2023-04-12 13:50] LABS: Basophils # 0.1 10^3/uL (0.0-0.1); Basophils % 0.4 %; Eosinophils % 0.1 %; Hematocrit 47.2 % (37-53); Lymphocytes # 1.3 10^3/uL (0.8-4.8); Lymphocytes % 8.4 %; Mean Corpuscular HGB Conc 33.7 g/dL (30-55); Mean Corpuscular Hemoglobin 29.5 pg (27-33); Mean Corpuscular Volume 87.6 fl (82-101); Mean Platelet Volume 10.2 fL (7.4-10.4); Monocytes # 0.9 10^3/uL (0.2-0.9); Monocytes % 5.8 %; Neutrophils # 13.44 10^3/uL (1.8-7.7); Neutrophils % 84.5 %; Nucleated Red Blood Cells % 0 %; Platelet Count 247 10^3/cmm (157-399); Red Blood Count 5.39 10^6/uL (3.85-5.65); Red Cell Distribution Width 11.7 % (12.1-15.1)
[2023-04-12 14:14] LABS: Alanine Aminotransferase 21 U/L (0-41); Albumin Level 4.5 g/dL (3.5-5.2); Alkaline Phosphatase 131 U/L (40-130); Anion Gap 32.8 (5-19); Aspartate Amino Transferase 14 U/L (0-40); Blood Urea Nitrogen 20 mg/dL (6-20); Calcium 9.3 mg/dL (8.5-10.5); Chloride 91 mmol/L (98-107); Creatinine Clr Calc Pharmacy 85.0793; Globulin 3.9 g/dL (1.3-4.6); Glomerular Filtration Rate 59.9 mL/min (90-130); Glucose 497 mg/dL (65-115); Lipase 9 U/L (13-60); Osmolality Calculated 287 mOsm/kg (285-295); Potassium 5.8 mmol/L (3.5-5.1); Sodium 126 mmol/L (136-145); Total Bilirubin 0.3 mg/dL (0.15-1.2); Total Protein 8.4 g/dL (6.6-8.7)
[2023-04-12 14:20] LABS: Carbon Dioxide 8 mmol/L (22-29)
--- NOTE | 2023-04-12 14:24 | W.ED.WEAKNES ---
HPI - Weakness General: Chief complaint: Weakness Stated complaint: weakness, n/v, fever Time Seen by Provider: 04/12/23 14:04 Source: patient Mode of arrival: ambulatory Limitations: no limitations History of Present Illness: 27-year-old male who history of type 1 diabetes he states he is having fever body aches chills and was diagnosed with influenza on Tuesday. States he has been having vomiting over the last 2 days and his blood sugars been running high he is concerned he may be in DKA. Denies any worse improved factors. Associated symptoms: Reports fever(s), nausea and vomiting; Denies chest pain, chills, dysuria or headache(s) Review of Systems Const: Reports: fever(s); Denies: chills, body aches or change in appetite ENMT: Denies: throat pain or dental pain Card: Denies: chest pain Resp: Denies: dyspnea GI: Reports: nausea and vomiting; Denies: abdominal pain or diarrhea : Denies: dysuria Musc: Denies: neck pain or back pain Skin/Breast: Denies: rash Neuro: Denies: headache(s) PFSH ED PFSH: Medical History Nicotine dependence, chewing tobacco, with unspecified nicotine-induced disorders Type 1 diabetes mellitus History of pericarditis (~2016) occurred after appendectomy Type 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 Mildly depressed EF at 50% with mild inferior wall hypokinesis. History of tonsillectomy History of appendectomy (~10/2016) Family History Other Diabetes Social History Smoking and tobacco/nicotine status: never used tobacco/nicotine Alcohol intake: current Alcohol intake frequency: holidays/special occasions only Substance/Drug Use: never Current occupational status: employed Physical Exam Const: COMMON NORMALS: patient oriented x3 GENERAL APPEARANCE: ill appearing HENMT: COMMON NORMALS: normocephalic and atraumatic HEAD & SCALP: normocephalic and atraumatic Eye: COMMON NORMALS: Equal, round and reactive pupils present and EOMs intact bilaterally PUPIL: Yes Equal, round and reactive pupils present Neck/C-Spine: COMMON NORMALS: full ROM and supple Chest: COMMONS NORMALS: normal inspection of the chest Resp: COMMON NORMALS: normal respiratory effort, No retractions, No use of accessory muscles and clear to auscultation bilaterally AUSCULTATION: clear to auscultation bilaterally Cardio: COMMON NORMALS: regular rhythm and No murmurs present (Cardio) RATE: tachycardic RHYTHM: regular rhythm GI: COMMON NORMALS: Normal to inspection, nondistended, normoactive bowel sounds present, Soft to palpation, non-tender and no masses PALPATION: Yes Soft to palpation Extremity: COMMON NORMALS: normal to inspection and full ROM Neuro: COMMON NORMALS: patient oriented x3, moves all extremities and no focal motor deficits Psych: COMMON NORMALS: mental status grossly normal, Normal thought process present and cooperative THOUGHT PROCESS: Normal thought process present Skin: COMMON NORMALS: no rashes or lesions noted and no wounds GENERAL SKIN EXAM: no rashes or lesions noted Course Vital Signs: Vital signs: Vital Signs Temperature 97.5 F L 04/12/23 13:21 Pulse Rate 107 H 04/12/23 13:21 Respiratory Rate 16 04/12/23 13:21 Blood Pressure 113/62 04/12/23 13:21 Pulse Oximetry 99 04/12/23 13:21 Oxygen Delivery Me thod Room Air 04/12/23 13:21 MDM - Weakness Medical Decision Making Patient presents here with vomiting and is in DKA has an elevated anion gap does have influenza is likely cause of his vomiting and because to be in DKA to get him IV fluids will start him on insulin drip spoke to the hospitalist admit to ICU. Lab Data I reviewed the patient's lab results. 04/12/23 13:36 04/12/23 13:36 Laboratory Results WBC 15.90 10^3/uL (3.29-11.43) H 04/12/23 13:36 RBC 5.39 10^6/uL (3.85-5.65) 04/12/23 13:36 Hgb 15.90 g/dL (11.27-16.99) 04/12/23 13:36 Hct 47.2 % (37-53) 04/12/23 13:36 MCV 87.6 fl (82-101) 04/12/23 13:36 MCH 29.5 pg (27-33) 04/12/23 13:36 MCHC 33.7 g/dL (30-55) 04/12/23 13:36 RDW 11.7 % (12.1-15.1) L 04/12/23 13:36 Plt Count 247 10^3/cmm (157-399) 04/12/23 13:36 MPV 10.2 fL (7.4-10.4) 04/12/23 13:36 Neut % (Auto) 84.5 % 04/12/23 13:36 Lymph % (Auto) 8.4 % 04/12/23 13:36 [place] % (Auto) 5.8 % 04/12/23 13:36 Eos % (Auto) 0.1 % 04/12/23 13:36 Baso % (Auto) 0.4 % 04/12/23 13:36 Neut # (Auto) 13.44 10^3/uL (1.8-7.7) H 04/12/23 13:36 Lymph # (Auto) 1.3 10^3/uL (0.8-4.8) 04/12/23 13:36 [place] # (Auto) 0.9 10^3/uL (0.2-0.9) 04/12/23 13:36 Eos # (Auto) 0.0 10^3/uL (0.0-0.8) 04/12/23 13:36 Baso # (Auto) 0.1 10^3/uL (0.0-0.1) 04/12/23 13:36 Nucleated RBC % (auto) 0 % 04/12/23 13:36 Nucleated RBCs # 0.0 /100WBC 04/12/23 13:36 Sodium 126 mmol/L (136-145) L 04/12/23 13:36 Potassium 5.8 mmol/L (3.5-5.1) H 04/12/23 13:36 Chloride 91 mmol/L (98-107) L 04/12/23 13:36 Carbon Dioxide 8 mmol/L (22-29) L* 04/12/23 13:36 Anion Gap 32.8 (5-19) H 04/12/23 13:36 BUN 20 mg/dL (6-20) 04/12/23 13:36 Creatinine 1.4 mg/dL (0.7-1.2) H 04/12/23 13:36 GFR Calculation 59.9 mL/min (90-130) L 04/12/23 13:36 Glucose 497 mg/dL (65-115) H 04/12/23 13:36 Calculated Osmolality 287 mOsm/kg (285-295) 04/12/23 13:36 Calcium 9.3 mg/dL (8.5-10.5) 04/12/23 13:36 Total Bilirubin 0.3 mg/dL (0.15-1.2) 04/12/23 13:36 AST 14 U/L (0-40) 04/12/23 13:36 ALT 21 U/L (0-41) 04/12/23 13:36 Alkaline Phosphatase 131 U/L (40-130) H 04/12/23 13:36 Total Protein 8.4 g/dL (6.6-8.7) 04/12/23 13:36 Albumin 4.5 g/dL (3.5-5.2) 04/12/23 13:36 Globulin 3.9 g/dL (1.3-4.6) 04/12/23 13:36 Lipase 9 U/L (13-60) L 04/12/23 13:36 Serum Ketones Positive (Negative) H 04/12/23 13:36 All radiology interpretation(s) finalized by discharge Critical Care Time Critical Care Time: Critical Care Time: Yes Total Critical Care Time: 45 Attestation: The high probability of a clinically significant, sudden or life threatening deterioration of the patient's endocrine system(s) required my full and direct attention, intervention and personal management. The critical care time is as shown. This time is in addition to time spent performing any reported procedures but includes the following: [x] Data and vital sign review and interpretation [x] Patient assessment, examination and intervention [x] Documentation [x] Medication orders and management Discharge Plan Discharge Patient Disposition: Admitted As Inpatient Clinical Impression: DKA, type 1, Influenza Condition: Stable Prescriptions: No Action Toujeo Max U-300 SoloStar 300 unit/mL (3 mL) insulin pen 76 unit SUBCUT DAILY Qty: 3 0RF azithromycin 500 mg tablet 500 mg PO DAILY 5 Days Qty: 5 0RF acetaminophen 500 mg Tablet 500 - 1,000 mg PO Q6H PRN (Reason: Pain) Humalog U-100 Insulin 100 unit/mL Cartridge See Rx Instructions .ROUTE .COMPLEX Rx Instructions: sliding scale with meals Referrals: Lonny Reynolds DO [Primary Care Provider] - Coding Level of Care Code ED Clip Riveter for Mehdi Nelson
[2023-04-12 14:31] LABS: Ketone (Acetest) Serum Positive (Negative)
[2023-04-12] MEDS: sodium chloride 0.9% 1,000 ML 999 ML IV (14:41)
[2023-04-12 14:42] LABS: ABG PCO2 20.3 mmHg (35-45); Arterial Blood Gas Hematocrit 48.2 % (42-52); Base Excess ABG -24.6 mmol/L (-2.0-2.0); Blood Gas Operator Identificat GD; Blood Gas Sample Site Brachial, right; Blood Gas Sample Type Arterial; HCO3 ABG 5.1 mmol/L (22-26); Oxygen Device ROOM AIR; PO2 FiO2 Ratio Arterial Blood 0
[2023-04-12] MEDS: ondansetron 2 mg/ML SDV 2 mL 4 MG IVP (14:42)
--- NOTE | 2023-04-12 14:42 | XR_ITS ---
WS: [id number] Exam: XR chest 1V portable [id number] Date/Time of Exam: 04/12/2023 3:00 PM Reason For Exam: cough Comparison 10/19/2022. Findings: The lungs are clear and fully expanded. Costophrenic angles are sharp. No infiltrates. Bronchovascula r relief appears normal. Cardiac silhouette is unremarkable. Bony elements are intact. IMPRESSION: Unremarkable chest radiograph.
[2023-04-12 14:43] LABS: ABG PH Result 7.01 (7.35-7.45)
[2023-04-12 14:53] LABS: Glucose Point of Care 481 mg/dL (70-110)
[2023-04-12 15:09] LABS: Magnesium 1.9 mg/dL (1.7-2.3); Phosphorus 5.1 mg/dL (2.5-4.5)
--- NOTE | 2023-04-12 15:14 | P.HP_ITS ---
Providers/Chief Complaint 2 Primary Care Provider: Lonny Reynolds DO Chief Complaint: weakness, n/v, fever History of Present Illness Kojo Thomas is a 27 year old male Diabetic, who has history of insulin- dependent diabetes, takes 90 units of Lantus along sliding scale Recently tested positive for flu, last few days Recently missed insulin dosages because he has not been eating very well he is weak and lethargic no active vomiting but endorsing nausea. Endorsing fever 102. Review of Systems 2 Const: Reports: fever(s) Eyes: Denies: change in vision ENMT: Denies: throat pain Card: Denies: chest pain Resp: Reports: dyspnea GI: Reports: nausea : Denies: flank pain Medications/Allergies Home Medications Medication Instructions Recorded Confirmed Last Taken Type acetaminophen 500 mg tablet 500 - 1,000 mg PO Q6H PRN Pain 12/31/20 04/12/23 Unknown History insulin lispro 100 unit/mL See Rx Instructions .Route .COMPLEX 10/01/21 04/12/23 04/11/23 History subcutaneous cartridge (Humalog U-100 Insulin) azithromycin 500 mg tablet 500 mg PO DAILY 5 days #5 tabs 04/10/23 04/12/23 04/12/23 Rx insulin glargine U-300 conc 300 80 - 90 unit SUBCUT DAILY 04/12/23 04/12/23 Unknown History unit/mL (3 mL) subcutaneous pen (Toujeo Max U-300 SoloStar) Allergies Allergy/AdvReac Type Severity Reaction Status Date / Time No Known Allergies Allergy Verified 04/10/23 17:22 PFSH Acute 2 PFSH: Medical History Nicotine dependence, chewing tobacco, with unspecified nicotine-induced disorders Type 1 diabetes mellitus History of pericarditis (~2016) occurred after appendectomy Type I 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 Mildly depressed EF at 50% with mild inferior wall hypokinesis. History of tonsillectomy History of appendectomy (~10/2016) Family History Other Diabetes Social History Smoking and tobacco/nicotine status: never used tobacco/nicotine Alcohol intake: current Alcohol intake frequency: holidays/special occasions only Substance/Drug Use: never Current occupational status: employed Vitals/I&O/Wt Last Vital Signs Temp 97.5 F L 04/12/23 13:21 Pulse 107 H 04/12/23 13:21 Resp 16 04/12/23 13:21 BP 113/62 04/12/23 13:21 Pulse Ox 99 04/12/23 13:21 O2 Del Method Room Air 04/12/23 13:21 Weight last 48 hrs Weight 69.853 kg Physical Exam 2 Narrative: Appears stated age GCS 15 Pleasant cooperative Hyper ventilating Nonfocal neuroexam Low-grade fever Tachycardia Signs of dehydration present Data 04/12/23 13:36 04/12/23 13:36 Micro: Microbiology 04/12/23 14:53 Blood Culture - Preliminary Blood SPECIMEN COLLECTED 04/12/23 14:49 Blood Culture - Preliminary Blood SPECIMEN COLLECTED A&P Assessment and plan (1) Diabetes mellitus: Qualifiers: Diabetes mellitus complication status: without complication Diabetes mellitus type: type 1 Qualified Code(s): E10.9 - Type 1 diabetes mellitus without complications (2) Diabetes mellitus type 1, uncontrolled, insulin dependent: (3) DKA, type 1: (4) Metabolic acidosis: (5) Influenza: Plan Influenza +04/10 Severe DKA BMP every 4 hours Start bicarb for severe acidosis Once anion gap closes we will give 80 units of Lantus he takes 90 units of Toujeo N.p.o. for now Admit to to ICU Respiratory panel is pending Full code DVT prophylaxis added Monitor for signs of postviral bacterial infection Attestations 2 Medical Necessity Statement*: More than 2 midnights anticipated for management of DKA Diagnoses Type 1 diabetes mellitus without complication E10.9 Diabetes mellitus complication status: without complication Diabetes mellitus type: type 1 Diabetes mellitus type 1, uncontrolled, insulin dependent DKA, type 1 E10.10 Metabolic acidosis E87.2 Influenza J11.1
[2023-04-12] MEDS: insulin regular-human 250 UNIT in sodium chloride 0.9% 250 ML 7.07000000000000028 UNIT IV (15:19)
[2023-04-12 15:20] LABS: Anion Gap 34.1 (5-19); Blood Urea Nitrogen 23 mg/dL (6-20); Chloride 89 mmol/L (98-107); Creatinine Clr Calc Pharmacy 99.2592; Glomerular Filtration Rate 71.6 mL/min (90-130); Osmolality Calculated 282 mOsm/kg (285-295); Potassium 6.1 mmol/L (3.5-5.1); Sodium 123 mmol/L (136-145)
[2023-04-12] MEDS: enoxaparin 40 mg/0.4 mL Syringe SUBCUT (15:24)
[2023-04-12 15:29] LABS: Carbon Dioxide 6 mmol/L (22-29)
[2023-04-12 15:30] LABS: Glucose 503 mg/dL (65-115)
[2023-04-12 16:24] LABS: Glucose Point of Care 391 mg/dL (70-110)
[2023-04-12 16:54] LABS: Adenovirus Not Detected (NOT DETECT); Chlamydia Pneumoniae Not Detected (NOT DETECT); Coronavirus 229E,HKU1,NL63,OC4 Not Detected (NOT DETECT); Human Metapneumovirus Not Detected (NOT DETECT); Human Rhinovirus/Enterovirus Not Detected (NOT DETECT); Influenza A Not Detected (NOT DETECT); Influenza A H1 Not Detected (NOT DETECT); Influenza A H1-2009 Not Detected (NOT DETECT); Influenza A H3 Not Detected (NOT DETECT); Influenza B Detected (NOT DETECT); Mycoplasma Pneumoniae Not Detected (NOT DETECT); Parainfluenza Virus Type 1 Not Detected (NOT DETECT); Parainfluenza Virus Type 2 Not Detected (NOT DETECT); Parainfluenza Virus Type 3 Not Detected (NOT DETECT); Parainfluenza Virus Type 4 Not Detected (NOT DETECT); Respiratory Syncytial Virus A Not Detected (NOT DETECT); Respiratory Syncytial Virus B Not Detected (NOT DETECT); SARS-COV-2 Not Detected (NOT DETECT)
[2023-04-12] MEDS: sodium bicarbonate 150 MEQ in dextrose 5% 1,000 ML 100 MEQ IV (17:22)
--- NOTE | 2023-04-12 18:12 | PC.NURSE ---
admit to icu 2 kim and kvng sent home with . kept clothes and boot at bedside insulin gtt titrated and bicarb gtt infusing
[2023-04-12 19:03] LABS: Glucose Point of Care 302 mg/dL (70-110)
[2023-04-12 19:03] LABS: Glucose Point of Care 376 mg/dL (70-110)
[2023-04-12 19:30] LABS: Anion Gap 27.9 (5-19); Blood Urea Nitrogen 19 mg/dL (6-20); Calcium 8.6 mg/dL (8.5-10.5); Chloride 97 mmol/L (98-107); Creatinine Clr Calc Pharmacy 93.0536; Glomerular Filtration Rate 79.1 mL/min (90-130); Glucose 287 mg/dL (65-115); Osmolality Calculated 281 mOsm/kg (285-295); Potassium 4.9 mmol/L (3.5-5.1); Sodium 129 mmol/L (136-145)
[2023-04-12 19:31] LABS: Carbon Dioxide 9 mmol/L (22-29)
[2023-04-12 20:09] LABS: Glucose Point of Care 234 mg/dL (70-110)
[2023-04-12] MEDS: sodium chloride 0.9% 1,000 ML 100 ML IV (20:14)
[2023-04-12] MEDS: azithromycin 250 mg Tablet 500 MG PO (20:14)
[2023-04-12 20:29] LABS: Base Excess VBG -18.2 mmol/L (-3.0-3.0); Blood Gas Operator Identificat JB; Blood Gas Sample Site Not specified; Blood Gas Sample Type Venous; Venous Blood Gas Hematocrit 50.3 % (42-52)
[2023-04-12 20:33] LABS: pH VBG 7.12 (7.32-7.42)
[2023-04-12 22:06] LABS: Glucose Point of Care 194 mg/dL (70-110)
[2023-04-12 22:06] LABS: Glucose Point of Care 219 mg/dL (70-110)
[2023-04-12 23:05] LABS: Glucose Point of Care 160 mg/dL (70-110)
[2023-04-12 23:07] LABS: Anion Gap 23.5 (5-19); Blood Urea Nitrogen 16 mg/dL (6-20); Calcium 8.4 mg/dL (8.5-10.5); Carbon Dioxide 14 mmol/L (22-29); Chloride 98 mmol/L (98-107); Glomerular Filtration Rate 88.3 mL/min (90-130); Glucose 183 mg/dL (65-115); Osmolality Calculated 278 mOsm/kg (285-295); Potassium 4.5 mmol/L (3.5-5.1); Sodium 131 mmol/L (136-145)
[2023-04-13] VITALS (58 sets, daily range): BP systolic 92–129; BP diastolic 47–82; PULSE 76–92; RESP 7–31; TEMP 37.1; O2SAT 95–100
[2023-04-13 01:08] LABS: Glucose Point of Care 165 mg/dL (70-110)
[2023-04-13 01:14] LABS: Glucose Point of Care 165 mg/dL (70-110)
[2023-04-13 02:09] LABS: Glucose Point of Care 202 mg/dL (70-110)
[2023-04-13] MEDS: dextrose 10% 1,000 ML 75 ML IV (02:28)
[2023-04-13 03:22] LABS: Anion Gap 21.6 (5-19); Blood Urea Nitrogen 14 mg/dL (6-20); Calcium 8.2 mg/dL (8.5-10.5); Carbon Dioxide 16 mmol/L (22-29); Chloride 100 mmol/L (98-107); Glomerular Filtration Rate 88.3 mL/min (90-130); Glucose 217 mg/dL (65-115); Osmolality Calculated 283 mOsm/kg (285-295); Potassium 4.6 mmol/L (3.5-5.1); Sodium 133 mmol/L (136-145)
[2023-04-13 03:47] LABS: Glucose Point of Care 198 mg/dL (70-110)
[2023-04-13 04:13] LABS: Glucose Point of Care 264 mg/dL (70-110)
[2023-04-13 05:01] LABS: Glucose Point of Care 233 mg/dL (70-110)
[2023-04-13 06:16] LABS: Glucose Point of Care 220 mg/dL (70-110)
[2023-04-13 07:01] LABS: Basophils % 0.2 %; Eosinophils % 0.4 %; Hematocrit 36.5 % (37-53); Lymphocytes % 20.6 %; Mean Corpuscular HGB Conc 35.9 g/dL (30-55); Mean Corpuscular Hemoglobin 29.8 pg (27-33); Mean Corpuscular Volume 83.1 fl (82-101); Mean Platelet Volume 9.3 fL (7.4-10.4); Monocytes # 0.8 10^3/uL (0.2-0.9); Monocytes % 8.5 %; Neutrophils # 6.68 10^3/uL (1.8-7.7); Neutrophils % 69.5 %; Nucleated Red Blood Cells % 0 %; Platelet Count 214 10^3/cmm (157-399); Red Blood Count 4.39 10^6/uL (3.85-5.65); Red Cell Distribution Width 11.9 % (12.1-15.1); White Blood Count 9.62 10^3/uL (3.29-11.43)
[2023-04-13 07:28] LABS: Alanine Aminotransferase 15 U/L (0-41); Albumin Level 3.5 g/dL (3.5-5.2); Alkaline Phosphatase 86 U/L (40-130); Anion Gap 16.9 (5-19); Aspartate Amino Transferase 9 U/L (0-40); Blood Urea Nitrogen 11 mg/dL (6-20); Calcium 8.1 mg/dL (8.5-10.5); Carbon Dioxide 19 mmol/L (22-29); Chloride 100 mmol/L (98-107); Creatinine Clr Calc Pharmacy 113.4393; Globulin 2.8 g/dL (1.3-4.6); Glomerular Filtration Rate 99.8 mL/min (90-130); Glucose 246 mg/dL (65-115); Osmolality Calculated 282 mOsm/kg (285-295); Potassium 3.9 mmol/L (3.5-5.1); Sodium 132 mmol/L (136-145); Total Bilirubin 0.3 mg/dL (0.15-1.2); Total Protein 6.3 g/dL (6.6-8.7)
[2023-04-13 08:01] LABS: Glucose Point of Care 234 mg/dL (70-110)
--- NOTE | 2023-04-13 09:35 | PC.NURSE ---
Anion gap 16. Dr. Joseph gave v.o. to bridge to lantus and sliding scale insulin. orders per MAR
--- NOTE | 2023-04-13 10:25 | P.PN_ITS ---
Subjective 2 Subjective: seen this morning no acute events overnight he says he feels slightly better has been bridged to lantus this morning Vitals/I&O/Wt Last Vital Signs Temp 98.8 F 04/13/23 04:00 Pulse 79 04/13/23 10:00 Resp 19 H 04/13/23 10:00 BP 116/60 04/13/23 10:00 Pulse Ox 96 04/13/23 10:00 O2 Del Method Room Air 04/12/23 18:00 04/12/23 04/13/23 04/13/23 22:59 06:59 14:59 Intake Total 1065.101 / 1065.101 10.303 / 1075.404 Output Total 1200 / 1200 Balance 1065.101 / 1065.101 -1189.697 / -124.596 Weight last 48 hrs Weight 66.224 kg Weight 66.395 kg Weight 69.853 kg Physical Exam 2 Narrative: Appears stated age GCS 13 Pleasant cooperative abdomen soft, non tender normal s1, s2 lungs clear to auscultation b/l afebrile Nonfocal neuroexam Low-grade fever appears dehydrated Data 04/13/23 06:45 04/13/23 06:45 Micro: Microbiology 04/12/23 14:53 Blood Culture - Preliminary Blood SPECIMEN COLLECTED 04/12/23 14:49 Blood Culture - Preliminary Blood SPECIMEN COLLECTED A&P Assessment and plan (1) Diabetes mellitus: Qualifiers: Diabetes mellitus complication status: without complication Diabetes mellitus type: type 1 Qualified Code(s): E10.9 - Type 1 diabetes mellitus without complications (2) Diabetes mellitus type 1, uncontrolled, insulin dependent: (3) DKA, type 1: (4) Metabolic acidosis: (5) Influenza: Plan #Influenza +04/10, symptom onset apr 05 #Severe DKA #hx of type 1 DM #Hx of pericarditis Tamiflu not indicated since symptoms onset was last week. BMP every 4 hours dc bicarb drip lantus 80 daily carb consistent diet resp panel positive for influenza afebrile BCx pending No urinary complaints CXR negative for pneumonia Tylenol for fever Continue to monitor sugars today if stable, may be able to dc in am Full code DVT prophylaxis added Attestations 2 Medical Necessity Statement*: Plan to dc in am. Diagnoses Type 1 diabetes mellitus without complication E10.9 Diabetes mellitus complication status: without complication Diabetes mellitus type: type 1 Diabetes mellitus type 1, uncontrolled, insulin dependent DKA, type 1 E10.10 Metabolic acidosis E87.2 Influenza J11.1
[2023-04-13] MEDS: insulin glargine 100 units/1 mL 80 UNIT SUBCUT (10:37)
[2023-04-13 11:44] LABS: Anion Gap 14.7 (5-19); Blood Urea Nitrogen 10 mg/dL (6-20); Calcium 8.3 mg/dL (8.5-10.5); Carbon Dioxide 20 mmol/L (22-29); Chloride 103 mmol/L (98-107); Creatinine Clr Calc Pharmacy 127.6192; Glomerular Filtration Rate 114.3 mL/min (90-130); Glucose 240 mg/dL (65-115); Osmolality Calculated 285 mOsm/kg (285-295); Potassium 3.7 mmol/L (3.5-5.1); Sodium 134 mmol/L (136-145)
[2023-04-13 11:48] LABS: Glucose Point of Care 272 mg/dL (70-110)
[2023-04-13] MEDS: insulin lispro 100 unit/1 mL SUBCUT (12:13)
[2023-04-13] MEDS: sodium chloride 0.9% 1,000 ML 100 ML IV (14:43)
[2023-04-13] MEDS: enoxaparin 40 mg/0.4 mL Syringe SUBCUT (14:43)
[2023-04-13 15:30] LABS: Anion Gap 15.8 (5-19); Blood Urea Nitrogen 11 mg/dL (6-20); Calcium 8.1 mg/dL (8.5-10.5); Carbon Dioxide 20 mmol/L (22-29); Chloride 98 mmol/L (98-107); Creatinine Clr Calc Pharmacy 145.8505; Glomerular Filtration Rate 133.3 mL/min (90-130); Glucose 312 mg/dL (65-115); Osmolality Calculated 281 mOsm/kg (285-295); Potassium 3.8 mmol/L (3.5-5.1); Sodium 130 mmol/L (136-145)
--- NOTE | 2023-04-13 15:51 | P.DS_ITS ---
Discharge Providers Date of Admission: 04/12/23 17:37 Date of Discharge: April 13, 2023 Attending Provider at Admission: Kasey Joseph MD Attending Provider at Discharge: Kasey Joseph MD Primary Care Provider: Lonny Reynolds DO Diagnoses at Discharge Discharge Diagnosis (1) Diabetes mellitus: Status: Inactive Qualifiers: Diabetes mellitus complication status: without complication Diabetes mellitus type: type 1 Qualified Code(s): E10.9 - Type 1 diabetes mellitus without complications (2) Diabetes mellitus type 1, uncontrolled, insulin dependent: Status: Inactive (3) DKA, type 1: Status: Inactive (4) Metabolic acidosis: Status: Inactive (5) Influenza: Status: Inactive Reason for Visit Reason for Visit: weakness, n/v, fever Hospital Course Hospital Course Admitted for severe DKA, positive for influenza. Symptom onset April 13. Tamiflu not indicated since symptoms over the week prior to admission. DKA was managed with standard DKA protocol. Patient was bridged back to his home Lantus dose and was discharged home in stable condition. Chest x-ray ruled out pneumonia, cultures negative to date. Patient tolerated diet at time of discharge and felt well. Physical Exam Narrative: Appears stated age GCS 13 Pleasant cooperative abdomen soft, non tender normal s1, s2 lungs clear to auscultation b/l afebrile Nonfocal neuroexam Discharge Data Studies Completed and Pending Completed Studies During Hospitalization Category Date Time Status CXRP [XR chest 1V portable [id number]] Stat Exams 04/12/23 14:42 Completed Pending at discharge Category Date Time Status Basic Metabolic Panel AM LABS Lab 04/14/23 04:00 Ordered Basic Metabolic Panel Q4H Lab 04/13/23 18:45 Ordered Basic Metabolic Panel Q4H Lab 04/13/23 22:45 Ordered Blood Culture Stat Lab 04/12/23 14:53 Results Complete Blood Count w/Auto AM LABS Lab 04/14/23 04:00 Ordered Magnesium AM LABS Lab 04/14/23 04:00 Ordered Phosphorus AM LABS Lab 04/14/23 04:00 Ordered Sputum Culture and Gram Stain Stat Lab 04/12/23 14:33 Uncollected Laboratory Results WBC 9.62 10^3/uL (3.29-11.43) 04/13/23 06:45 RBC 4.39 10^6/uL (3.85-5.65) 04/13/23 06:45 Hgb 13.10 g/dL (11.27-16.99) 04/13/23 06:45 Hct 36.5 % (37-53) L 04/13/23 06:45 MCV 83.1 fl (82-101) D 04/13/23 06:45 MCH 29.8 pg (27-33) 04/13/23 06:45 MCHC 35.9 g/dL (30-55) D 04/13/23 06:45 RDW 11.9 % (12.1-15.1) L 04/13/23 06:45 Plt Count 214 10^3/cmm (157-399) 04/13/23 06:45 MPV 9.3 fL (7.4-10.4) 04/13/23 06:45 Neut % (Auto) 69.5 % 04/13/23 06:45 Lymph % (Auto) 20.6 % 04/13/23 06:45 Grand % (Auto) 8.5 % 04/13/23 06:45 Eos % (Auto) 0.4 % 04/13/23 06:45 Baso % (Auto) 0.2 % 04/13/23 06:45 Neut # (Auto) 6.68 10^3/uL (1.8-7.7) 04/13/23 06:45 Lymph # (Auto) 2.0 10^3/uL (0.8-4.8) 04/13/23 06:45 Grand # (Auto) 0.8 10^3/uL (0.2-0.9) 04/13/23 06:45 Eos # (Auto) 0.0 10^3/uL (0.0-0.8) 04/13/23 06:45 Baso # (Auto) 0.0 10^3/uL (0.0-0.1) 04/13/23 06:45 Nucleated RBC % (auto) 0 % 04/13/23 06:45 Nucleated RBCs # 0.0 /100WBC 04/13/23 06:45 Specimen Type Venous 04/12/23 20:07 Sample Site Not specified 04/12/23 20:07 ABG pH 7.01 (7.35-7.45) L* 04/12/23 14:28 ABG pCO2 20.3 mmHg (35-45) L 04/12/23 14:28 ABG pO2 98.0 mmHg (80.0-100.0) 04/12/23 14:28 ABG PO2/FiO2 Ratio 0 04/12/23 14:28 ABG HCO3 5.1 mmol/L (22-26) L 04/12/23 14:28 ABG Base Excess -24.6 mmol/L (-2.0-2.0) L 04/12/23 14:28 Gino Test N/a 04/12/23 20:07 VBG pH 7.12 (7.32-7.42) L* 04/12/23 20:07 VBG pCO2 31.0 mmHg (41-51) L 04/12/23 20:07 VBG pO2 124.0 mmHg (25-40) H 04/12/23 20:07 VBG HCO3 10.0 mmol/L (24-28) L 04/12/23 20:07 VBG Base Excess -18.2 mmol/L (-3.0-3.0) L 04/12/23 20:07 VBG Hematocrit 50.3 % (42-52) 04/12/23 20:07 Hematocrit 48.2 % (42-52) 04/12/23 14:28 O2 Delivery Device None 04/12/23 20:07 FiO2 21.0 % 04/12/23 14:28 Wheel Braider ID Carlton 04/12/23 20:07 Sodium 130 mmol/L (136-145) L 04/13/23 14:41 Potassium 3.8 mmol/L (3.5-5.1) 04/13/23 14:41 Chloride 98 mmol/L (98-107) 04/13/23 14:41 Carbon Dioxide 20 mmol/L (22-29) L 04/13/23 14:41 Anion Gap 15.8 (5-19) 04/13/23 14:41 BUN 11 mg/dL (6-20) 04/13/23 14:41 Creatinine 0.7 mg/dL (0.7-1.2) 04/13/23 14:41 GFR Calculation 133.3 mL/min (90-130) H 04/13/23 14:41 Glucose 312 mg/dL (65-115) H 04/13/23 14:41 POC Glucose 272 mg/dL (70-110) H 04/13/23 11:46 Calculated Osmolality 281 mOsm/kg (285-295) L 04/13/23 14:41 Calcium 8.1 mg/dL (8.5-10.5) L 04/13/23 14:41 Phosphorus 5.1 mg/dL (2.5-4.5) H 04/12/23 13:36 Magnesium 1.9 mg/dL (1.7-2.3) 04/12/23 13:36 Total Bilirubin 0.3 mg/dL (0.15-1.2) 04/13/23 06:45 AST 9 U/L (0-40) 04/13/23 06:45 ALT 15 U/L (0-41) 04/13/23 06:45 Alkaline Phosphatase 86 U/L (40-130) 04/13/23 06:45 Total Protein 6.3 g/dL (6.6-8.7) L D 04/13/23 06:45 Albumin 3.5 g/dL (3.5-5.2) 04/13/23 06:45 Globulin 2.8 g/dL (1.3-4.6) 04/13/23 06:45 Lipase 9 U/L (13-60) L 04/12/23 13:36 Serum Ketones Positive (Negative) H 04/12/23 13:36 Adenovirus (PCR) Not detected (NOT DETECT) 04/12/23 14:55 C. pneumoniae DNA (PCR) Not detected (NOT DETECT) 04/12/23 14:55 Coronavirus 229E (PCR) Not detected (NOT DETECT) 04/12/23 14:55 Human Metapneumovir PCR Not detected (NOT DETECT) 04/12/23 14:55 Influenza A (H1) PCR Not detected (NOT DETECT) 04/12/23 14:55 Influ A (H1/09) PCR Not detected (NOT DETECT) 04/12/23 14:55 Influenza A (H3) PCR Not detected (NOT DETECT) 04/12/23 14:55 Influenza Type A (PCR) Not detected (NOT DETECT) 04/12/23 14:55 Influenza Type B (PCR) Detected (NOT DETECT) A 04/12/23 14:55 M. pneumoniae (PCR) Not detected (NOT DETECT) 04/12/23 14:55 Parainfluenza 1 (PCR) Not detected (NOT DETECT) 04/12/23 14:55 Parainfluenza 2 (PCR) Not detected (NOT DETECT) 04/12/23 14:55 Parainfluenza 3 (PCR) Not detected (NOT DETECT) 04/12/23 14:55 Parainfluenza 4 (PCR) Not detected (NOT DETECT) 04/12/23 14:55 RSV Type A (PCR) Not detected (NOT DETECT) 04/12/23 14:55 RSV Type B (PCR) Not detected (NOT DETECT) 04/12/23 14:55 Entero/Rhino (PCR) Not detected (NOT DETECT) 04/12/23 14:55 SARS-CoV-2 (PCR) Not detected (NOT DETECT) 04/12/23 14:55 Vitals Last Vital Signs Temp 98.8 F 04/13/23 04:00 Pulse 81 04/13/23 15:00 Resp 18 04/13/23 15:00 BP 128/58 04/13/23 15:00 Pulse Ox 96 04/13/23 15:00 O2 Del Method Room Air 04/12/23 18:00 Discharge Plan Discharge Patient Disposition: Home Condition: Stable Prescriptions: Continued acetaminophen 500 mg Tablet 500 - 1,000 mg PO Q6H PRN (Reason: Pain) Humalog U-100 Insulin 100 unit/mL Cartridge See Rx Instructions .ROUTE .COMPLEX Rx Instructions: sliding scale with meals insulin glargine U-300 conc [Toujeo Max U-300 SoloStar] 300 unit/mL (3 mL) insulin pen 80 - 90 unit SUBCUT DAILY Discharge Orders: Discharge Order (Routine); Ordered 04/13/23 Ordered By: Kasey Joseph Referrals: Lonny Reynolds DO [Primary Care Provider] - 7-10 days (We have notified your physician's clinic of the need for a follow-up appointment to be scheduled. If you have not heard from them within the next 2 business days, please call them directly. ) Patient Instructions: Opioid Safety Discharge Attestations Time Spent in Discharge Care*: less than 30 min Quality Metrics Clinical Quality Measures [ No reported AMI, CVA or VTE this stay] Coding Level of Care Code Acute Code for Chg Fwd Diagnoses Type 1 diabetes mellitus without complication E10.9 Diabetes mellitus complication status: without complication Diabetes mellitus type: type 1 Diabetes mellitus type 1, uncontrolled, insulin dependent DKA, type 1 E10.10 Metabolic acidosis E87.2 Influenza J11.1
--- NOTE | 2023-04-13 16:29 | PC.NURSE ---
All D/C instructions educated to patient, signed D/C form. IV D/C. Patient not wanting to wait for to get off work, patient ambulated to 's office in the hospital. D/C and off unit at this time
== END 2023-04-13 16:31 | disposition home or self-care (01) | DRG 639 ==
LOC: ER 14:41 → ICU 16:25
PROVIDERS: Internal Medicine; Admitting Provider Internal Medicine; Emergency Provider Emergency Medicine; PCP Family Medicine; Visit Provider Internal Medicine
DX: E10.10 Type 1 diabetes mellitus with ketoacidosis without coma (principal); Z79.4 Long term (current) use of insulin; J11.1 Influenza due to unidentified influenza virus with other respiratory manifestations
CPT/HCPCS: 36415; 36416; 36600; 71045; 80048; 80053; 82009; 82803; 82962; 83690; 83735; 84100; 85025; 87040; 87486; 87581; 87633; 96365; 96366; 96367; 96372; 96375; 99291; J1650; J1815; J2405; J7030; J7050; J7070; Q0144

== ENCOUNTER 2023-05-27 19:47 | Emergency (ER) | payer OTHER, SELFPAY ==
[2023-05-27 19:50] VITALS: BP 120/81; PULSE 79; RESP 18; TEMP 37.2; O2SAT 97
--- NOTE | 2023-05-27 20:25 | ED_ITS ---
Documented by User: Anjelica Ernandez MD 05/27/23 22:38 HPI - Abdominal Pain 2 General: Chief Complaint: Abdominal Pain Stated Complaint: back pain, kidney pain Time Seen by Provider: 05/27/23 20:20 History of Present Illness: 27-year-old male with a history of type 1 diabetes who presents to the emergency room with flank pain and some urinary symptoms. He says been going on for several days now. He has an ache in his back and it is relieved with urination at times. No dysuria. No fevers. No nausea vomiting or diarrhea. Review of Systems 2 Narrative: Constitutional symptoms: Negative except as documented in HPI. Skin symptoms: Negative except as documented in HPI. Eye symptoms: Negative except as documented in HPI. ENMT symptoms: Negative except as documented in HPI. Respiratory symptoms: Negative except as documented in HPI. Cardiovascular symptoms: Negative except as documented in HPI. Gastrointestinal symptoms: Negative except as documented in HPI. Genitourinary symptoms: Negative except as documented in HPI. Musculoskeletal symptoms: Negative except as documented in HPI. Neurologic symptoms: Negative except as documented in HPI. Psychiatric symptoms: Negative except as documented in HPI. Endocrine symptoms: Negative except as documented in HPI. 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 Mildly depressed EF at 50% with mild inferior wall hypokinesis. History of tonsillectomy History of appendectomy (~10/2016) Family History Other Diabetes Social History Smoking and tobacco/nicotine status: never used tobacco/nicotine Alcohol intake: current Alcohol intake frequency: holidays/special occasions only Substance/Drug Use: never Current occupational status: employed Physical Exam 2 Narrative: EXAM NARRATIVE: General: Alert, no acute distress. Skin: Warm, dry. Head: Normocephalic, atraumatic. Neck: Supple, trachea midline. Eye: Extraocular movements are intact. Ears, nose, mouth and throat: mucosa moist. Cardiovascular: Regular, Normal peripheral perfusion. Respiratory: Lungs are clear to auscultation, respirations are non-labored, breath sounds are equal, Symmetrical chest wall expansion. Gastrointestinal: Soft, Nontender, Non distended, Normal bowel sounds. Musculoskeletal: Normal ROM, no deformity. Neurological: Alert and oriented, No focal neurological deficit observed. Psychiatric: Cooperative, appropriate mood & affect. Course 2 Vital Signs: Vital signs: Vital Signs Temperature 98.9 F 05/27/23 19:50 Pulse Rate 69 05/28/23 00:29 Respiratory Rate 16 05/28/23 00:29 Blood Pressure 120/78 05/28/23 00:29 Pulse Oximetry 96 05/28/23 00:29 Oxygen Delivery Me thod Room Air 05/27/23 19:50 MDM - Abdominal Pain Medical Decision Making Medical decision making: Differential diagnosis including but not limited to and based on the above HPI, review of systems and physical exam: In this patient with type 1 diabetes and low back pain would have concern for UTI or kidney stones. Also he states he has had some high blood sugars. Which would concern me for urinary tract infection. Also concern for DKA. Renal failure. Orders placed to evaluate differential diagnosis based on the above differential, HPI and physical exam Lab Review: Laboratory results were reviewed and interpreted by myself the emergency room physician. Patient has no leukocytosis. Hemoglobin is 13.6. BUN and creatinine are 24 and 1.3 which would show some mild dehydration. His blood sugar is 537 which raise concern for DKA, however his bicarb was only 26 and his ABG showed pH 7.4. Urinalysis showed 0-4 whites and 5-[address] scan was ordered to rule out kidney stones. CT of the abdomen: No obvious kidney stones in the ureters. Possible kidney stone in the left kidney. This should not be causing symptoms but could cause a small amount of hematuria that was seen. Reexamination: Lab Data 05/27/23 20:39 05/27/23 20:39 Labs/Radiology: Radiology Impressions Abdomen/Pelvis CT 05/27/23 21:40 IMPRESSION: 1. Prominent fluid in the small bowel without dilation may reflect an enteritis. 2. Left kidney punctate nonobstructing calyceal stone. Laboratory Results WBC 7.94 10^3/uL (3.29-11.43) 05/27/23 20:39 RBC 4.53 10^6/uL (3.85-5.65) 05/27/23 20:39 Hgb 13.60 g/dL (11.27-16.99) 05/27/23 20:39 Hct 38.8 % (37-53) 05/27/23 20:39 MCV 85.7 fl (82-101) 05/27/23 20:39 MCH 30.0 pg (27-33) 05/27/23 20:39 MCHC 35.1 g/dL (30-55) 05/27/23 20:39 RDW 11.7 % (12.1-15.1) L 05/27/23 20:39 Plt Count 241 10^3/cmm (157-399) 05/27/23 20:39 MPV 9.7 fL (7.4-10.4) 05/27/23 20:39 Neut % (Auto) 63.8 % 05/27/23 20:39 Lymph % (Auto) 23.7 % 05/27/23 20:39 [place] % (Auto) 8.7 % 05/27/23 20:39 Eos % (Auto) 3.0 % 05/27/23 20:39 Baso % (Auto) 0.5 % 05/27/23 20:39 Neut # (Auto) 5.07 10^3/uL (1.8-7.7) 05/27/23 20:39 Lymph # (Auto) 1.9 10^3/uL (0.8-4.8) 05/27/23 20:39 [place] # (Auto) 0.7 10^3/uL (0.2-0.9) 05/27/23 20:39 Eos # (Auto) 0.2 10^3/uL (0.0-0.8) 05/27/23 20:39 Baso # (Auto) 0.0 10^3/uL (0.0-0.1) 05/27/23 20:39 Nucleated RBC % (auto) 0 % 05/27/23 20:39 Nucleated RBCs # 0.0 /100WBC 05/27/23 20:39 Specimen Type Arterial 05/27/23 21:30 Sample Site Radial, right 05/27/23 21:30 ABG pH 7.41 (7.35-7.45) 05/27/23 21:30 ABG pCO2 43.6 mmHg (35-45) 05/27/23 21:30 ABG pO2 82.8 mmHg (80.0-100.0) 05/27/23 21:30 ABG HCO3 27.8 mmol/L (22-26) H 05/27/23 21:30 ABG O2 Saturation 97.6 05/27/23 21:30 ABG Base Excess 2.7 mmol/L (-2.0-2.0) H 05/27/23 21:30 Gino Test Pos 05/27/23 21:30 A-a O2 Gradient 1.8 mmHg (5-10) L 05/27/23 21:30 Hematocrit 42.6 % (42-52) 05/27/23 21:30 Hgb O2 Saturation 95.5 % (95-100) 05/27/23 21:30 Carboxyhemoglobin 1.4 %THgb (0.4-20.1) 05/27/23 21:30 Methemoglobin 0.8 % (0.4-1.5) 05/27/23 21:30 Total Hemoglobin 13.9 g/dL (14-18) L 05/27/23 21:30 Sodium 133.0 mmol/L (131-143) 05/27/23 21:30 Potassium 4.4 mmol/L (3.5-5.0) 05/27/23 21:30 Glucose 379.0 mg/dL (70-115) H 05/27/23 21:30 Ionized Calcium 1.3 mmol/L (1.1-1.4) 05/27/23 21:30 O2 Delivery Device Room air 05/27/23 21:30 Manager Business Continuity ID [email or web address] 05/27/23 21:30 Sodium 130 mmol/L (136-145) L 05/27/23 20:39 Potassium 4.8 mmol/L (3.5-5.1) 05/27/23 20:39 Chloride 93 mmol/L (98-107) L 05/27/23 20:39 Carbon Dioxide 26 mmol/L (22-29) 05/27/23 20:39 Anion Gap 15.8 (5-19) 05/27/23 20:39 BUN 24 mg/dL (6-20) H 05/27/23 20:39 Creatinine 1.3 mg/dL (0.7-1.2) H 05/27/23 20:39 GFR Calculation 65.3 mL/min (90-130) L 05/27/23 20:39 Glucose 537 mg/dL (65-115) H* 05/27/23 20:39 POC Glucose 366 mg/dL (70-110) H 05/27/23 23:25 Calculated Osmolality 298 mOsm/kg (285-295) H 05/27/23 20:39 Calcium 9.4 mg/dL (8.5-10.5) 05/27/23 20:39 Total Bilirubin 0.8 mg/dL (0.15-1.2) 05/27/23 20:39 AST 11 U/L (0-40) 05/27/23 20:39 ALT 13 U/L (0-41) 05/27/23 20:39 Alkaline Phosphatase 96 U/L (40-130) 05/27/23 20:39 Total Protein 6.9 g/dL (6.6-8.7) 05/27/23 20:39 Albumin 4.0 g/dL (3.5-5.2) 05/27/23 20:39 Globulin 2.9 g/dL (1.3-4.6) 05/27/23 20:39 Urine Color Light yellow (Yellow) 05/27/23 20:34 Urine Appearance Clear (CLEAR) 05/27/23 20:34 Urine pH 7 (5-7) 05/27/23 20:34 Ur Specific [place] 1.005 (1.005-1.030) 05/27/23 20:34 Urine Protein Neg (Negative) 05/27/23 20:34 Urine Glucose (UA) 4+ (Normal) H 05/27/23 20:34 Urine Ketones Negative (Negative) 05/27/23 20:34 Urine Blood 2+ (Negative) H 05/27/23 20:34 Urine Nitrate Negative (Negative) 05/27/23 20:34 Urine Bilirubin Neg (Negative) 05/27/23 20:34 Urine Urobilinogen Neg mg/dL (Negative) 05/27/23 20:34 Ur Leukocyte Esterase Negative (Negative) 05/27/23 20:34 Urine RBC 5-10 /hpf (0-2) H 05/27/23 20:34 Urine WBC 0-4 /hpf (0-5) H 05/27/23 20:34 Ur Squamous Epith Cells 0-4 /hpf (0-5) H 05/27/23 20:34 Amorphous Sediment Not Reportable 05/27/23 20:34 Urine Bacteria Trace /hpf (NONE) 05/27/23 20:34 Serum Ketones Negative (Negative) 05/27/23 20:39 Other Data Assessment and plan: Hyperglycemia Dehydration urinary tract infection Hematuria -2 L normal saline bolus and 10 units IV insulin. -IV Rocephin for possible UTI. - Discharged home - Discussed findings and plan with patient. Answered any questions. - All laboratory values were reviewed and interpreted personally by myself, the ER physician - All imaging was reviewed and interpreted personally by myself, the ER physician. - Evaluation and treatment of this problem were appropriate in the emergency setting Discharge Plan Discharge Patient Disposition: Home Clinical Impression: Acute hyperglycemia, Type 1 diabetes mellitus, Urinary tract infection, Dehydration Condition: Stable Prescriptions: New cefdinir 300 mg capsule 300 mg PO BID 5 Days Qty: 10 0RF No Action acetaminophen 500 mg Tablet 500 - 1,000 mg PO Q6H PRN (Reason: Pain) Humalog U-100 Insulin 100 unit/mL Cartridge See Rx Instructions .ROUTE .COMPLEX Rx Instructions: sliding scale with meals insulin glargine U-300 conc [Toujeo Max U-300 SoloStar] 300 unit/mL (3 mL) insulin pen 80 - 90 unit SUBCUT DAILY Discharge Orders: Discharge ED (Routine); Ordered 05/28/23 Ordered By: Remington Lockhart Referrals: Lonny Reynolds DO [Primary Care Provider] - 1 week Discharge Diet: Usual diet Discharge Activity: Resume usual activity Patient Instructions: Urinary Tract Infection in Men (ED), Diabetic Hyperglycemia (ED), Opioid Safety, Pain Management Coding Level of Care Code ED Career Services Officer for Chg Fwd Documented by User: Remington Lockhart DO 05/28/23 00:38 HPI - Abdominal Pain 2 General: Chief Complaint: Abdominal Pain Stated Complaint: back pain, kidney pain Time Seen by Provider: 05/27/23 20:20 PFS ED 2 PFSH: Medical History Influenza DKA, type 1 Diabetes mellitus type 1, uncontrolled, insulin dependent Metabolic acidosis Diabetes mellitus Nicotine dependence, chewing tobacco, with unspecified nicotine-induced disorders Type 1 diabetes mellitus History of pericarditis (~2016) occurred after appendectomy Type I diabetes mellitus (~2010) 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 Mildly depressed EF at 50% with mild inferior wall hypokinesis. History of tonsillectomy History of appendectomy (~10/2016) Family History Other Diabetes Social History Smoking and tobacco/nicotine status: never used tobacco/nicotine Alcohol intake: current Alcohol intake frequency: holidays/special occasions only Substance/Drug Use: never Current occupational status: employed Course 2 Vital Signs: Vital signs: Vital Signs Temperature 98.9 F 05/27/23 19:50 Pulse Rate 69 05/28/23 00:29 Respiratory Rate 16 05/28/23 00:29 Blood Pressure 120/78 05/28/23 00:29 Pulse Oximetry 96 05/28/23 00:29 Oxygen Delivery Me thod Room Air 05/27/23 19:50 MDM - Abdominal Pain Medical Decision Making Medical decision making: Differential diagnosis including but not limited to and based on the above HPI, review of systems and physical exam: In this patient with type 1 diabetes and low back pain would have concern for UTI or kidney stones. Also he states he has had some high blood sugars. Which would concern me for urinary tract infection. Also concern for DKA. Renal failure. Orders placed to evaluate differential diagnosis based on the above differential, HPI and physical exam Lab Review: Laboratory results were reviewed and interpreted by myself the emergency room physician. Patient has no leukocytosis. Hemoglobin is 13.6. BUN and creatinine are 24 and 1.3 which would show some mild dehydration. His blood sugar is 537 which raise concern for DKA, however his bicarb was only 26 and his ABG showed pH 7.4. Urinalysis showed 0-4 whites and 5-[address] scan was ordered to rule out kidney stones. CT of the abdomen: No obvious kidney stones in the ureters. Possible kidney stone in the left kidney. This should not be causing symptoms but could cause a small amount of hematuria that was seen. Patient was turned over shift change. Lab work was reviewed patient's 2 L normal saline had infused. Will blood sugar is improving. Patient be discharged home. Lab Data 05/27/23 20:39 05/27/23 20:39 Labs/Radiology: Radiology Impressions Abdomen/Pelvis CT 05/27/23 21:40 IMPRESSION: 1. Prominent fluid in the small bowel without dilation may reflect an enteritis. 2. Left kidney punctate nonobstructing calyceal stone. Laboratory Results WBC 7.94 10^3/uL (3.29-11.43) 05/27/23 20:39 RBC 4.53 10^6/uL (3.85-5.65) 05/27/23 20:39 Hgb 13.60 g/dL (11.27-16.99) 05/27/23 20:39 Hct 38.8 % (37-53) 05/27/23 20:39 MCV 85.7 fl (82-101) 05/27/23 20:39 MCH 30.0 pg (27-33) 05/27/23 20:39 MCHC 35.1 g/dL (30-55) 05/27/23 20:39 RDW 11.7 % (12.1-15.1) L 05/27/23 20:39 Plt Count 241 10^3/cmm (157-399) 05/27/23 20:39 MPV 9.7 fL (7.4-10.4) 05/27/23 20:39 Neut % (Auto) 63.8 % 05/27/23 20:39 Lymph % (Auto) 23.7 % 05/27/23 20:39 [place] % (Auto) 8.7 % 05/27/23 20:39 Eos % (Auto) 3.0 % 05/27/23 20:39 Baso % (Auto) 0.5 % 05/27/23 20:39 Neut # (Auto) 5.07 10^3/uL (1.8-7.7) 05/27/23 20:39 Lymph # (Auto) 1.9 10^3/uL (0.8-4.8) 05/27/23 20:39 [place] # (Auto) 0.7 10^3/uL (0.2-0.9) 05/27/23 20:39 Eos # (Auto) 0.2 10^3/uL (0.0-0.8) 05/27/23 20:39 Baso # (Auto) 0.0 10^3/uL (0.0-0.1) 05/27/23 20:39 Nucleated RBC % (auto) 0 % 05/27/23 20: Nucleated RBCs # 0.0 /100WBC 05/27/23 20:39 Specimen Type Arterial 05/27/23 21:30 Sample Site Radial, right 05/27/23 21:30 ABG pH 7.41 (7.35-7.45) 05/27/23 21:30 ABG pCO2 43.6 mmHg (35-45) 05/27/23 21:30 ABG pO2 82.8 mmHg (80.0-100.0) 05/27/23 21:30 ABG HCO3 27.8 mmol/L (22-26) H 05/27/23 21:30 ABG O2 Saturation 97.6 05/27/23 21:30 ABG Base Excess 2.7 mmol/L (-2.0-2.0) H 05/27/23 21:30 Gino Test Pos 05/27/23 21:30 A-a O2 Gradient 1.8 mmHg (5-10) L 05/27/23 21:30 Hematocrit 42.6 % (42-52) 05/27/23 21:30 Hgb O2 Saturation 95.5 % (95-100) 05/27/23 21:30 Carboxyhemoglobin 1.4 %THgb (0.4-20.1) 05/27/23 21:30 Methemoglobin 0.8 % (0.4-1.5) 05/27/23 21:30 Total Hemoglobin 13.9 g/dL (14-18) L 05/27/23 21:30 Sodium 133.0 mmol/L (131-143) 05/27/23 21:30 Potassium 4.4 mmol/L (3.5-5.0) 05/27/23 21:30 Glucose 379.0 mg/dL (70-115) H 05/27/23 21:30 Ionized Calcium 1.3 mmol/L (1.1-1.4) 05/27/23 21:30 O2 Delivery Device Room air 05/27/23 21:30 Manager Business Continuity ID [email or web address] 05/27/23 21:30 Sodium 130 mmol/L (136-145) L 05/27/23 20:39 Potassium 4.8 mmol/L (3.5-5.1) 05/27/23 20:39 Chloride 93 mmol/L (98-107) L 05/27/23 20:39 Carbon Dioxide 26 mmol/L (22-29) 05/27/23 20:39 Anion Gap 15.8 (5-19) 05/27/23 20:39 BUN 24 mg/dL (6-20) H 05/27/23 20:39 Creatinine 1.3 mg/dL (0.7-1.2) H 05/27/23 20:39 GFR Calculation 65.3 mL/min (90-130) L 05/27/23 20:39 Glucose 537 mg/dL (65-115) H* 05/27/23 20:39 POC Glucose 366 mg/dL (70-110) H 05/27/23 23:25 Calculated Osmolality 298 mOsm/kg (285-295) H 05/27/23 20:39 Calcium 9.4 mg/dL (8.5-10.5) 05/27/23 20:39 Total Bilirubin 0.8 mg/dL (0.15-1.2) 05/27/23 20:39 AST 11 U/L (0-40) 05/27/23 20:39 ALT 13 U/L (0-41) 05/27/23 20:39 Alkaline Phosphatase 96 U/L (40-130) 05/27/23 20:39 Total Protein 6.9 g/dL (6.6-8.7) 05/27/23 20:39 Albumin 4.0 g/dL (3.5-5.2) 05/27/23 20:39 Globulin 2.9 g/dL (1.3-4.6) 05/27/23 20:39 Urine Color Light yellow (Yellow) 05/27/23 20:34 Urine Appearance Clear (CLEAR) 05/27/23 20:34 Urine pH 7 (5-7) 05/27/23 20:34 Ur Specific [place] 1.005 (1.005-1.030) 05/27/23 20:34 Urine Protein Neg (Negative) 05/27/23 20:34 Urine Glucose (UA) 4+ (Normal) H 05/27/23 20:34 Urine Ketones Negative (Negative) 05/27/23 20:34 Urine Blood 2+ (Negative) H 05/27/23 20:34 Urine Nitrate Negative (Negative) 05/27/23 20:34 Urine Bilirubin Neg (Negative) 05/27/23 20:34 Urine Urobilinogen Neg mg/dL (Negative) 05/27/23 20:34 Ur Leukocyte Esterase Negative (Negative) 05/27/23 20:34 Urine RBC 5-10 /hpf (0-2) H 05/27/23 20:34 Urine WBC 0-4 /hpf (0-5) H 05/27/23 20:34 Ur Squamous Epith Cells 0-4 /hpf (0-5) H 05/27/23 20:34 Amorphous Sediment Not Reportable 05/27/23 20:34 Urine Bacteria Trace /hpf (NONE) 05/27/23 20:34 Serum Ketones Negative (Negative) 05/27/23 20:39 All radiology interpretation(s) finalized by discharge Discharge Plan Discharge Patient Disposition: Home Clinical Impression: Acute hyperglycemia, Type 1 diabetes mellitus, Urinary tract infection, Dehydration Condition: Stable Prescriptions: New cefdinir 300 mg capsule 300 mg PO BID 5 Days Qty: 10 0RF No Action acetaminophen 500 mg Tablet 500 - 1,000 mg PO Q6H PRN (Reason: Pain) Humalog U-100 Insulin 100 unit/mL Cartridge See Rx Instructions .ROUTE .COMPLEX Rx Instructions: sliding scale with meals insulin glargine U-300 conc [Toujeo Max U-300 SoloStar] 300 unit/mL (3 mL) insulin pen 80 - 90 unit SUBCUT DAILY Discharge Orders: Discharge ED (Routine); Ordered 05/28/23 Ordered By: Remington Lockhart Referrals: Lonny Reynolds DO [Primary Care Provider] - 1 week Discharge Diet: Usual diet Discharge Activity: Resume usual activity Patient Instructions: Urinary Tract Infection in Men (ED), Diabetic Hyperglycemia (ED), Opioid Safety, Pain Management Coding Level of Care Code ED Career Services Officer for Mehdi Nelson
[2023-05-27 20:53] LABS: Basophils % 0.5 %; Eosinophils # 0.2 10^3/uL (0.0-0.8); Hematocrit 38.8 % (37-53); Lymphocytes # 1.9 10^3/uL (0.8-4.8); Lymphocytes % 23.7 %; Mean Corpuscular HGB Conc 35.1 g/dL (30-55); Mean Corpuscular Volume 85.7 fl (82-101); Mean Platelet Volume 9.7 fL (7.4-10.4); Monocytes # 0.7 10^3/uL (0.2-0.9); Monocytes % 8.7 %; Neutrophils # 5.07 10^3/uL (1.8-7.7); Neutrophils % 63.8 %; Nucleated Red Blood Cells % 0 %; Platelet Count 241 10^3/cmm (157-399); Red Blood Count 4.53 10^6/uL (3.85-5.65); Red Cell Distribution Width 11.7 % (12.1-15.1); White Blood Count 7.94 10^3/uL (3.29-11.43)
[2023-05-27 21:07] VITALS: BP 129/82; PULSE 67; RESP 16; O2SAT 97
[2023-05-27 21:18] LABS: Alanine Aminotransferase 13 U/L (0-41); Alkaline Phosphatase 96 U/L (40-130); Aspartate Amino Transferase 11 U/L (0-40); Blood Urea Nitrogen 24 mg/dL (6-20); Calcium 9.4 mg/dL (8.5-10.5); Chloride 93 mmol/L (98-107); Creatinine Clr Calc Pharmacy 92.9151; Globulin 2.9 g/dL (1.3-4.6); Glomerular Filtration Rate 65.3 mL/min (90-130); Osmolality Calculated 298 mOsm/kg (285-295); Potassium 4.8 mmol/L (3.5-5.1); Sodium 130 mmol/L (136-145); Total Bilirubin 0.8 mg/dL (0.15-1.2); Total Protein 6.9 g/dL (6.6-8.7)
[2023-05-27 21:25] LABS: Add Urine Microscopic? YES; Bacteria Urine TRACE /hpf; Bilirubin Urine Neg (Negative); Blood Urine 2+ (Negative); Glucose Urine UA 4+ (Normal); Ketones Urine Negative (Negative); Leukocyte Esterase Urine Negative (Negative); Nitrate Urine Negative (Negative); Protein Urine Neg (Negative); Specific Gravity, Urine 1.005 (1.005-1.030); Squamous Epithelial Cell Urine 0-4 /hpf (0-5); Urine Appearance Clear (CLEAR); Urine Color Light yellow (Yellow); Urobilinogen Urine Neg (Negative); WBC Urine 0-4 /hpf (0-5); pH Urine 7 (5-7)
[2023-05-27 21:26] LABS: Glucose 537 mg/dL (65-115)
[2023-05-27] MEDS: sodium chloride 0.9% 1,000 ML 999 ML IV ×2 (21:35)
[2023-05-27 21:37] LABS: Anion Gap 15.8 (5-19); Carbon Dioxide 26 mmol/L (22-29)
[2023-05-27 21:39] VITALS: BP 128/87; PULSE 70; RESP 16; O2SAT 96
[2023-05-27 21:40] LABS: ABG PCO2 43.6 mmHg (35-45); ABG PH Result 7.41 (7.35-7.45); Alveolar-Arterial Oxygen Gradi 1.8 mmHg (5-10); Arterial Blood Gas Hematocrit 42.6 % (42-52); Base Excess ABG 2.7 mmol/L (-2.0-2.0); Blood Gas Allen Test Pos; Blood Gas Sample Site Radial, right; Blood Gas Sample Type Arterial; Carboxyhemoglobin 1.4 %THgb (0.4-20.1); HCO3 ABG 27.8 mmol/L (22-26); HGB O2 Sat 95.5 % (95-100); Ionized Calcium Level - ABG 1.3 mmol/L (1.1-1.4); Methemoglobin 0.8 % (0.4-1.5); Oxygen Device ROOM AIR; Oxygen Saturation ABG 97.6; PO2 ABG 82.8 mmHg (80.0-100.0); Potassium Level - ABG 4.4 mmol/L (3.5-5.0); Total Hemoglobin 13.9 g/dL (14-18)
--- NOTE | 2023-05-27 21:40 | CTR_ITS ---
PROCEDURE INFORMATION: Exam: CT Abdomen And Pelvis Without Contrast Exam date and time: 05/27/2023 9:49 PM Age: 27 years old Clinical indication: Abdominal pain; Prior surgery; Surgery date: 6+ months; Surgery type: Appy; Patient HX: C/O bilateral flank pain. Currently in dka. Type 1 diabetic. ; Additional info: Flank pain, hyperglycemia TECHNIQUE: Imaging protocol: Computed tomography of the abdomen and pelvis without contrast. Radiation optimization: All CT scans at this facility use at least one of these dose optimization techniques: automated exposure control; mA and/or kV adjustment per patient size (includes targeted exams where dose is matched to clinical indication); or iterative reconstruction. COMPARISON: CT abdomen pelvis con [id number] 12/15/2016 5:49 PM RADIATION DOSE METRICS: Total DLP (mGy-cm): 402.03 FINDINGS: Liver: Normal. No mass. Gallbladder and bile ducts: Normal. No calcified stones. No ductal dilation. Pancreas: Normal. No ductal dilation. Spleen: Normal. No splenomegaly. Adrenal glands: Normal. No mass. Kidneys and ureters: Left kidney punctate nonobstructing calyceal stone. Stomach and bowel: Prominent fluid in the small bowel without dilation may reflect an enteritis. Appendix: No evidence of appendicitis. Intraperitoneal space: Unremarkable. No free air. No significant fluid collection. Vasculature: Unremarkable. No abdominal aortic aneurysm. Lymph nodes: Unremarkable. No enlarged lymph nodes. Urinary bladder: Unremarkable as visualized. Reproductive: Unremarkable as visualized. Bones/joints: Unremarkable. No acute fracture. Soft tissues: Unremarkable. CT/CT abdomen pelvis con [id number] IMPRESSION: 1. Prominent fluid in the small bowel without dilation may reflect an enteritis. 2. Left kidney punctate nonobstructing calyceal stone.
[2023-05-27 21:47] LABS: Ketone (Acetest) Serum Negative (Negative)
[2023-05-27 22:12] VITALS: BP 130/89; PULSE 66; RESP 16; O2SAT 96
[2023-05-27] MEDS: insulin regular-human 100 units/1 mL 10 UNIT IVP (22:21)
[2023-05-27 22:39] VITALS: BP 129/84; PULSE 68; RESP 16; O2SAT 98
[2023-05-27 23:30] LABS: Glucose Point of Care 366 mg/dL (70-110)
[2023-05-27 23:36] VITALS: BP 126/84; PULSE 67; RESP 16; O2SAT 97
[2023-05-28 00:29] VITALS: BP 120/78; PULSE 69; RESP 16; O2SAT 96
== END 2023-05-28 00:35 | disposition home or self-care (01) ==
PROVIDERS: Emergency Medicine; Emergency Provider Emergency Medicine; PCP Family Medicine
DX: E10.65 Type 1 diabetes mellitus with hyperglycemia (principal); N39.0 Urinary tract infection, site not specified; E86.0 Dehydration; Z79.4 Long term (current) use of insulin
CPT/HCPCS: 36416; 36600; 74176; 80051; 80053; 81001; 82009; 82330; 82805; 82962; 85025; 96361; 96374; 99285; J1815; J7030

== ENCOUNTER 2023-06-27 07:09 | Emergency (ER) | payer OTHER, SELFPAY ==
[2023-06-27] VITALS (13 sets, daily range): BP systolic 91–106; BP diastolic 54–67; PULSE 68–109; RESP 12–18; TEMP 36.7; O2SAT 94–100; BMI 19.5
--- NOTE | 2023-06-27 07:19 | ECG_ITS ---
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 Measurements Intervals [place] Rate: 79 P: 85 SC: 147 QRS: 90 QRSD: 90 T: 66 QT: 361 QTc: 416 Interpretive Statements SINUS RHYTHM Compared to ECG 10/19/2022 07:15:29 Sinus tachycardia no longer present T-wave abnormality no longer present Electronically Signed On 06-27-2023 17:45:57 CDT by Malka Cerda M.D. [email or web address] ahuja medical centerRAP [id number]
--- NOTE | 2023-06-27 07:19 | XRR_ITS ---
PROCEDURE INFORMATION: Exam: XR Chest Exam date and time: 06/27/2023 7:40 AM Age: 28 years old Clinical indication: Cough and dyspnea; Additional info: Dyspnea/cough TECHNIQUE: Imaging protocol: Radiologic exam of the chest. Views: 1 view. COMPARISON: CR XR chest 1V portable [id number] 04/12/2023 3:03 PM FINDINGS: Lungs: Unremarkable. No consolidation. Pleural spaces: Unremarkable. No pleural effusion. No pneumothorax. Heart/Mediastinum: Unremarkable. No cardiomegaly. Bones/joints: Unremarkable. XR/XR chest 1V portable [id number] IMPRESSION: No acute findings.
--- NOTE | 2023-06-27 07:21 | W.ED.ARRPALP ---
HPI - Arrhythmia/Palpitations General: Chief Complaint: Syncope Stated Complaint: sob, heart flutter Time Seen by Provider: 06/27/23 07:19 Source: patient Mode of arrival: ambulatory History of Present Illness: 28-year-old male presents emergency room with an episode of near syncope at work. He was standing got lightheaded and dizzy felt like he was going to pass out never fully collapsed or passed out was very lightheaded. Last couple days his blood sugars. He said 2 days ago his blood sugars seem really low yesterday it was quite a bit higher. He has not had any fever sweats chills nausea vomiting or diarrhea. 6 years ago had an episode of pericarditis. He had an angiogram at that time which did not show any coronary artery disease no recent fever sweats or chills he is little bit tachycardic this morning denies any chest or abdominal pain. MD complaint: rapid heart beat Onset (ago): minute(s) Duration: now resolved Context: other (While standing) Associated symptoms: Deny anxiety, cough, diaphoresis, muscle cramps, nausea, paresthesias, pre-syncope, sense of impending doom, short of breath, syncope or vomiting Review of Systems Const: Denies: fever(s), chills or diaphoresis Card: Reports: palpitations; Denies: chest pain, syncope or pre-syncope Resp: Denies: dyspnea GI: Denies: abdominal pain, nausea or vomiting : Denies: dysuria, urinary frequency or urinary urgency Musc: Denies: neck pain, back pain or muscle cramps Skin/Breast: Denies: rash Psych: Denies: anxiety PFS ED PFSH: Medical History Influenza DKA, type 1 Diabetes mellitus type 1, uncontrolled, insulin dependent Metabolic acidosis Diabetes mellitus Nicotine dependence, chewing tobacco, with unspecified nicotine-induced disorders Type 1 diabetes mellitus History of pericarditis (~2016) occurred after appendectomy Type I diabetes mellitus (~2010) 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, on je[facility] + [facility], history of recurrent DKA ~[id number] Surgical History History of cardiac catheterization (~12/2016) Had ST elevation with chest pain, felt to have pericarditis as cause, normal left main, LAD, LCx, RCA. Mildly depressed EF at 50% with mild inferior wall hypokinesis. History of tonsillectomy History of appendectomy (~10/2016) Family History Other Diabetes Social History Smoking and tobacco/nicotine status: never used tobacco/nicotine Alcohol intake: current Alcohol intake frequency: holidays/special occasions only Substance/Drug Use: never Current occupational status: employed Physical Exam Const: COMMON NORMALS: no acute distress GENERAL APPEARANCE: cooperative and comfortable ORIENTATION/CONSCIOUSNESS: Yes awake, Yes oriented to person, Yes oriented to place and Yes oriented to time HENMT: COMMON NORMALS: normocephalic, atraumatic and hearing grossly normal bilaterally HEAD & SCALP: normocephalic and atraumatic Resp: COMMON NORMALS: normal respiratory effort, No retractions, No use of accessory muscles and clear to auscultation bilaterally AUSCULTATION: clear to auscultation bilaterally Cardio: COMMON NORMALS: regular rate, regular rhythm and No murmurs present (Cardio) RATE: regular rate RHYTHM: regular rhythm GI: COMMON NORMALS: Soft to palpation and No hepatosplenomegaly present AUSCULTATION: Yes normoactive bowel sounds PALPATION: Yes Soft to palpation, No Tenderness to palpation present (GI), No Guarding due to palpation present (GI) and Yes No hepatosplenomegaly present Extremity: COMMON NORMALS: normal to inspection, capillary refill normal, no clubbing, cyanosis or edema, no calf tenderness and no pedal edema Neuro: SENSORIUM/ORIENTATION: Yes oriented to person, Yes oriented to place and Yes oriented to time Skin: COMMON NORMALS: no rashes or lesions noted GENERAL SKIN EXAM: no rashes or lesions noted Course Vital Signs: Vital signs: Vital Signs Temperature 98.0 F 06/27/23 07:29 Pulse Rate 72 06/27/23 10:30 Respiratory Rate 14 06/27/23 10:00 Blood Pressure 103/56 06/27/23 10:30 Pulse Oximetry 100 06/27/23 10:30 Oxygen Delivery Me thod Room Air 06/27/23 07:29 MDM - Arrhythmia/Palpitations Medical Decision Making Blood pressure improved with fluids. Blood sugar did not improve with the IV fluids we offered a second round of fluids and also recommended insulin patient declined he wanted to treat himself at home. He opted for discharge. Patient was discharged home and will have him follow-up with his primary care as needed encourage close monitoring of blood sugar. Return if has further problems. Medical Records I reviewed the patient's medical records. Lab Data I reviewed the patient's lab results. 06/27/23 07:38 06/27/23 07:38 Radiology Impressions Chest X-Ray 06/27/23 07:19 IMPRESSION: No acute findings. Laboratory Results WBC 5.50 10^3/uL (3.29-11.43) 06/27/23 07:38 RBC 5.30 10^6/uL (3.85-5.65) 06/27/23 07:38 Hgb 15.70 g/dL (11.27-16.99) 06/27/23 07:38 Hct 44.6 % (37-53) 06/27/23 07:38 MCV 84.2 fl (82-101) 06/27/23 07:38 MCH 29.6 pg (27-33) 06/27/23 07:38 MCHC 35.2 g/dL (30-55) 06/27/23 07:38 RDW 11.9 % (12.1-15.1) L 06/27/23 07:38 Plt Count 255 10^3/cmm (157-399) 06/27/23 07:38 MPV 10.1 fL (7.4-10.4) 06/27/23 07:38 Neut % (Auto) 39.8 % 06/27/23 07:38 Lymph % (Auto) 44.5 % 06/27/23 07:38 Ness % (Auto) 8.5 % 06/27/23 07:38 Eos % (Auto) 5.8 % 06/27/23 07:38 Baso % (Auto) 0.9 % 06/27/23 07:38 Neut # (Auto) 2.18 10^3/uL (1.8-7.7) 06/27/23 07:38 Lymph # (Auto) 2.5 10^3/uL (0.8-4.8) 06/27/23 07:38 Ness # (Auto) 0.5 10^3/uL (0.2-0.9) 06/27/23 07:38 Eos # (Auto) 0.3 10^3/uL (0.0-0.8) 06/27/23 07:38 Baso # (Auto) 0.1 10^3/uL (0.0-0.1) 06/27/23 07:38 Nucleated RBC % (auto) 0 % 06/27/23 07:38 Nucleated RBCs # 0.0 /100WBC 06/27/23 07:38 Sodium 132 mmol/L (136-145) L 06/27/23 07:38 Potassium 4.0 mmol/L (3.5-5.1) 06/27/23 07:38 Chloride 95 mmol/L (98-107) L 06/27/23 07:38 Carbon Dioxide 27 mmol/L (22-29) 06/27/23 07:38 Anion Gap 14.0 (5-19) 06/27/23 07:38 BUN 12 mg/dL (6-20) 06/27/23 07:38 Creatinine 0.9 mg/dL (0.7-1.2) 06/27/23 07:38 GFR Calculation 99.1 mL/min (90-130) 06/27/23 07:38 Glucose 304 mg/dL (65-115) H 06/27/23 07:38 POC Glucose 403 mg/dL (70-110) H 06/27/23 10:24 Calculated Osmolality 285 mOsm/kg (285-295) 06/27/23 07:38 Calcium 9.9 mg/dL (8.5-10.5) 06/27/23 07:38 Total Bilirubin 0.5 mg/dL (0.15-1.2) 06/27/23 07:38 AST 12 U/L (0-40) 06/27/23 07:38 ALT 17 U/L (0-41) 06/27/23 07:38 Alkaline Phosphatase 96 U/L (40-130) 06/27/23 07:38 Total Protein 8.1 g/dL (6.6-8.7) 06/27/23 07:38 Albumin 4.6 g/dL (3.5-5.2) 06/27/23 07:38 Globulin 3.5 g/dL (1.3-4.6) 06/27/23 07:38 TSH 2.62 uIU/mL (0.27-4.20) 06/27/23 07:38 Urine Color Yellow (Yellow) 06/27/23 09:08 Urine Appearance Clear (CLEAR) 06/27/23 09:08 Urine pH 5 (5-7) 06/27/23 09:08 Ur Specific Enterprise 1.010 (1.005-1.030) 06/27/23 09:08 Urine Protein Neg (Negative) 06/27/23 09:08 Urine Glucose (UA) 4+ (Normal) H 06/27/23 09:08 Urine Ketones Negative (Negative) 06/27/23 09:08 Urine Blood 2+ (Negative) H 06/27/23 09:08 Urine Nitrate Negative (Negative) 06/27/23 09:08 Urine Bilirubin Neg (Negative) 06/27/23 09:08 Urine Urobilinogen Neg mg/dL (Negative) 06/27/23 09:08 Ur Leukocyte Esterase Negative (Negative) 06/27/23 09:08 Urine RBC 0-4 /hpf (0-2) H 06/27/23 09:08 Urine WBC None /hpf (0-5) 06/27/23 09:08 Ur Squamous Epith Cells None /hpf (0-5) 06/27/23 09:08 Amorphous Sediment Not Reportable 06/27/23 09:08 Urine Bacteria None /hpf (NONE) 06/27/23 09:08 Hyaline Casts 5-10 /lpf H 06/27/23 09:08 All radiology interpretation(s) finalized by discharge Discharge Plan Discharge Patient Disposition: Home Clinical Impression: Syncope due to orthostatic hypotension, Hyperglycemia Condition: Stable Prescriptions: No Action acetaminophen 500 mg Tablet 500 - 1,000 mg PO Q6H PRN (Reason: Pain) Humalog U-100 Insulin 100 unit/mL Cartridge See Rx Instructions .ROUTE .COMPLEX Rx Instructions: sliding scale with meals insulin glargine U-300 conc [Toujeo Max U-300 SoloStar] 300 unit/mL (3 mL) insulin pen 86 - 88 unit SUBCUT DAILY Discharge Orders: Discharge ED (Routine); Ordered 06/27/23 Ordered By: Tima Freitas Referrals: Lonny Reynolds, [Primary Care Provider] - Discharge Diet: Diabetic Discharge Activity: Increase activity as tolerated Patient Instructions: Opioid Safety, Pain Management Activity Restrictions/Additional Instructions: Thank you for choosing [facility] for your healthcare needs today. Please realize this is an emergency room and that we are providing you with a medical screening exam and this may not be complete and all inclusive of all the testing and or work up that you may need to determine your ailment or severity of your illness. It is very important that you follow up as instructed or that you return to the Emergency Department should you have concerns or if your condition changes or worsens in any way. You are seen today after an episode of orthostatic hypotension. This did improve with fluids given. It was also noted your glucose was significantly elevated would recommend a second liter of fluids and insulin to bring your blood sugar down you declined and preferred to be treated at home. We did not see any significant arrhythmias while you are here being monitored. Will discharge you home per your request and set up an outpatient 48-hour Holter monitor. hotel assistant general manager will make arrangements and they will contact you regarding this. Return if you have further problems. Coding Level of Care Code ED [place] [employer] Operator for Mehdi Nelson
[2023-06-27 07:40] LABS: Glucose Point of Care 266 mg/dL (70-110)
[2023-06-27 07:51] LABS: Basophils # 0.1 10^3/uL (0.0-0.1); Basophils % 0.9 %; Eosinophils # 0.3 10^3/uL (0.0-0.8); Eosinophils % 5.8 %; Hematocrit 44.6 % (37-53); Lymphocytes # 2.5 10^3/uL (0.8-4.8); Lymphocytes % 44.5 %; Mean Corpuscular HGB Conc 35.2 g/dL (30-55); Mean Corpuscular Hemoglobin 29.6 pg (27-33); Mean Corpuscular Volume 84.2 fl (82-101); Mean Platelet Volume 10.1 fL (7.4-10.4); Monocytes # 0.5 10^3/uL (0.2-0.9); Monocytes % 8.5 %; Neutrophils # 2.18 10^3/uL (1.8-7.7); Neutrophils % 39.8 %; Nucleated Red Blood Cells % 0 %; Platelet Count 255 10^3/cmm (157-399); Red Cell Distribution Width 11.9 % (12.1-15.1)
[2023-06-27] MEDS: sodium chloride 0.9% 1,000 ML 999 ML IV (08:08)
[2023-06-27 08:18] LABS: Alanine Aminotransferase 17 U/L (0-41); Albumin Level 4.6 g/dL (3.5-5.2); Alkaline Phosphatase 96 U/L (40-130); Aspartate Amino Transferase 12 U/L (0-40); Blood Urea Nitrogen 12 mg/dL (6-20); Calcium 9.9 mg/dL (8.5-10.5); Carbon Dioxide 27 mmol/L (22-29); Chloride 95 mmol/L (98-107); Creatinine Clr Calc Pharmacy 130.5374; Globulin 3.5 g/dL (1.3-4.6); Glomerular Filtration Rate 99.1 mL/min (90-130); Glucose 304 mg/dL (65-115); Osmolality Calculated 285 mOsm/kg (285-295); Sodium 132 mmol/L (136-145); Thyroid Stimulating Hormone 2.62 uIU/mL (0.27-4.20); Total Bilirubin 0.5 mg/dL (0.15-1.2); Total Protein 8.1 g/dL (6.6-8.7)
[2023-06-27 09:45] LABS: Add Urine Microscopic? YES; Bilirubin Urine Neg (Negative); Blood Urine 2+ (Negative); Glucose Urine UA 4+ (Normal); Ketones Urine Negative (Negative); Leukocyte Esterase Urine Negative (Negative); Nitrate Urine Negative (Negative); Protein Urine Neg (Negative); RBC Urine 0-4 /hpf (0-2); Urine Appearance Clear (CLEAR); Urine Color Yellow (Yellow); Urobilinogen Urine Neg (Negative); pH Urine 5 (5-7)
[2023-06-27 09:46] LABS: Add Urine Culture? No
[2023-06-27 10:31] LABS: Glucose Point of Care 403 mg/dL (70-110)
--- NOTE | 2023-06-27 10:39 | PC.NURSE ---
I went in to the patient's room to start another liter of fluids and give him 10 units of insulin. The patient stated he did not want more fluids and he did not want the insulin, that he wanted to go home and take care of it himself and eat because he's starving. I wasted the insulin into the [facility] jug with Ursula Zepeda RN as my witness.
--- NOTE | 2023-07-14 15:10 | PC.SOCIAL ---
CM made aware that patient needs a heart monitor. Message referral sent to cardiology requesting appt for this at this time.
== END 2023-06-27 11:00 | disposition home or self-care (01) ==
PROVIDERS: Emergency Provider Family Medicine; PCP Family Medicine
DX: I95.1 Orthostatic hypotension (principal); E10.65 Type 1 diabetes mellitus with hyperglycemia; Z79.4 Long term (current) use of insulin
CPT/HCPCS: 36416; 71045; 80053; 81001; 82962; 84443; 85025; 93005; 96360; 99285; J7030